=== PATIENT | female | born 1950 | race Caucasian/White ===

== ENCOUNTER → 2018-01-12 | Outpatient (CLI) | payer MEDICARE ==
--- NOTE | 2018-01-12 18:52 | ECHOF ---
Referral Reason:R01.1 Cardiac Murmur MEASUREMENTS -------- HEIGHT: 172.7 cm WEIGHT: 99.8 kg BP: RVIDd: 2.4 cm (< 3.3) IVSd: 1.2 cm (0.6 - 1.1) LVIDd: 4.7 cm (3.9 - 5.3) LVPWd: 1.4 cm (0.6 - 1.1) IVSs: 1.2 cm LVIDs: 4.0 cm LVPWs: 1.4 cm LA Diam: 3.0 cm (2.7 - 3.8) LAESV Index (A-L): 31.13 ml/m Ao Diam: 3.3 cm (2.0 - 3.7) AV Cusp: 1.8 cm (1.5 - 2.6) LA Diam: 3.9 cm (2.7 - 3.8) MV EXCURSION: 12.842 mm (> 18.000) MV EF SLOPE: 66 mm/s (70 - 150) EPSS: 0.5 cm MV E Augustine: 0.91 m/s MV DecT: 379 ms MV A Augustine: 1.04 m/s MV E/A Ratio: 0.88 RAP: 5.00 mmHg RVSP: 23.88 mmHg FINDINGS -------- Sinus rhythm. This was a technically good study. The left ventricular size is normal. There is mild concentric left ventricular hypertrophy. Overa ll left ventricular systolic function is normal with, an EF between 55 - 60 %. The right ventricle is normal in size. The left atrial size is normal. LA is midly dilated 29-33ml/m2. The right atrial size is normal. There is mild aortic valve sclerosis. There is no evidence of aortic regurgitation. The mitral valve leaflets are mildly thickened. Mild mitral regurgitation is present. Mild tricuspid regurgitation present. There is no evidence of pulmonary hypertension. The right v entricular systolic pressure, as measured by Doppler, is 23.88mmHg. There is no pulmonic regurgitation present. The aortic root size is normal. There is no pericardial effusion. CONCLUSIONS -------- 1. The left ventricular size is normal. 2. There is mild concentric left ventricular hypertrophy. 3. Overall left ventricular systolic function is normal with, an EF between 55 - 60 %. 4. The right ventricle is normal in size. 5. LA is midly dilated 29-33ml/m2. 6. There is mild aortic valve sclerosis. 7. The mitral valve leaflets are mildly thickened. 8. Mild mitral regurgitation is present. 9. Mild tricuspid regurgitation present. 10. There is no evidence of pulmonary hypertension. 11. The right ventricular systolic pressure, as measured by Doppler, is 23.88mmHg. 12. There is no pulmonic regurgitation present. 13. The aortic root size is normal. 14. There is no pericardial effusion. COUNTERSINKER [employer]ANCE SCREW HOLE: Haley Mcclelland RDCS
== END | disposition home or self-care (01) ==
LOC: RADECHMAIN 14:48
PROVIDERS: ATTEND Family Medicine
DX: I08.1 Rheumatic disorders of both mitral and tricuspid valves (principal)
CPT/HCPCS: 93306

== ENCOUNTER → 2018-07-09 | Outpatient (CLI) | payer MEDICARE ==
--- NOTE | 2018-07-09 18:43 | ECHOF ---
Referral Reason:N64.59 Other signs and symptoms in breast, R01.1 murmur MEASUREMENTS -------- HEIGHT: 172.7 cm WEIGHT: 88.0 kg BP: RVIDd: 2.5 cm (< 3.3) IVSd: 1.0 cm (0.6 - 1.1) LVIDd: 4.8 cm (3.9 - 5.3) LVPWd: 1.1 cm (0.6 - 1.1) IVSs: 1.6 cm LVIDs: 2.5 cm LVPWs: 1.7 cm LAESV Index (A-L): 19.97 ml/m Ao Diam: 3.0 cm (2.0 - 3.7) AV Cusp: 1.6 cm (1.5 - 2.6) LA Diam: 3.1 cm (2.7 - 3.8) MV EXCURSION: 17.354 mm (> 18.000) MV EF SLOPE: 59 mm/s (70 - 150) EPSS: 0.2 cm MV E Augustine: 1.28 m/s MV DecT: 259 ms MV A Augustine: 1.18 m/s MV E/A Ratio: 1.09 RAP: 5.00 mmHg RVSP: 19.26 mmHg FINDINGS -------- Sinus rhythm. This was a technically good study. The left ventricular size is normal. Left ventricular wall thickness is normal. Overall left vent ricular systolic function is normal with, an EF between 55 - 60 %. The right ventricle is normal in size and function. The left atrial size is normal. The right atrium is normal in size. The aortic valve is trileaflet, and appears structurally normal. No aortic stenosis or regurgitation. The mitral valve leaflets are mildly thickened. Moderate mitral annular calcification present. Mi ld mitral regurgitation is present. Mild tricuspid regurgitation present. Right ventricular systolic pressure is normal at < 35 mmHg. The right ventricular systolic pressure, as measured by Doppler, is 19.26mmHg. There is no pulmonic regurgitation present. The aortic root size is normal. The inferior vena cava is mildly dilated. There is a small, generalized pericardial effusion present. CONCLUSIONS -------- 1. Sinus rhythm. 2. This was a technically good study. 3. The left ventricular size is normal. 4. Left ventricular wall thickness is normal. 5. Overall left ventricular systolic function is normal with, an EF between 55 - 60 %. 6. The left atrial size is normal. 7. The aortic valve is trileaflet, and appears structurally normal. No aortic stenosis or regurgitati on. 8. The mitral valve leaflets are mildly thickened. 9. Moderate mitral annular calcification present. 10. Mild mitral regurgitation is present. 11. Mild tricuspid regurgitation present. 12. Right ventricular systolic pressure is normal at < 35 mmHg. 13. There is no pulmonic regurgitation present. 14. The aortic root size is normal. 15. The inferior vena cava is mildly dilated. 16. There is a small, generalized pericardial effusion present. SHARED SERVICES REPRESENTATIVE: Guera Kee RDCS
== END | disposition home or self-care (01) ==
LOC: RADECHMAIN 11:20
PROVIDERS: ATTEND Family Medicine
DX: I08.1 Rheumatic disorders of both mitral and tricuspid valves (principal); I31.3 Pericardial effusion (noninflammatory)
CPT/HCPCS: 93306; 77066; G0279; 77062

== ENCOUNTER → 2018-12-04 | Outpatient (CLI) | payer MEDICARE ==
--- NOTE | 2018-12-04 15:59 | XR ---
EXAMINATION TYPE: XR knee complete LT DATE OF EXAM: 12/04/2018 COMPARISON: NONE HISTORY: 68-year-old female following July with pain TECHNIQUE: 3 views FINDINGS: Right knee total arthroplasty is demonstrated. There is an ossific density inferior to the patella me asuring 1.3 cm. Possible beginning of the patellar tendon. Some additional bony densities above the p atella. No sizable joint effusion seen. Distal femoral and proximal tibial components of the prosthes is appear well seated. IMPRESSION: Both femoral and tibial components of the prosthesis appear intact. There is a 1.3 cm ossific density below the patella that could represent small avulsion fracture fragment. Correlate with any availabl e outside priors to assess for stability. There is thickening of the patellar tendon which could repr esent tendinopathy, contusion, or partial tear. Rupture is considered unlikely as there is no saida p atella philip.
== END ==
LOC: RADXRMAIN 15:13
PROVIDERS: ATTEND Family Medicine
DX: M25.862 Other specified joint disorders, left knee (principal)

== ENCOUNTER → 2019-08-09 | Outpatient (CLI) | payer MEDICARE ==
--- NOTE | 2019-08-12 13:18 | MM ---
Reason for exam: screening (asymptomatic). Last mammogram was performed 1 year and 1 month ago. History: Patient is postmenopausal. Benign cyst aspiration of the right breast. Benign excisional biopsy of the left breast. Physical Findings: A clinical breast exam by your physician is recommended on an annual basis and results should be correlated with mammographic findings. MG 3D Screening Mammo W/Cad Bilateral CC and MLO view(s) were taken. Prior study comparison: July 09, 2018, bilateral MG 3d diag mammo w/cad [facility]. October 20, 2016, mammogram, performed at [place]. The breast tissue is heterogeneously dense. This may lower the sensitivity of mammography. Benign appearing bilateral calcifications. No suspicious abnormality. No significant changes when compared with prior studies. ASSESSMENT: Benign, BI-RAD 2 RECOMMENDATION: Routine screening mammogram of both breasts in 1 year.
== END | disposition home or self-care (01) ==
LOC: RADMAMWWP 13:24
PROVIDERS: ATTEND Family Medicine
DX: Z12.31 Encounter for screening mammogram for malignant neoplasm of breast (principal)
CPT/HCPCS: 77063; 77067

== ENCOUNTER → 2020-02-12 | Day surgery (SDC) | payer MEDICARE ==
[2020-02-10 12:23] VITALS: BMI 30.7
[~2020-02-12] MED LIST: LIDOCAINE 1% (10MG/ML) FOR IV START INTRADERMA PRN; LIDOCAINE 1% INJ 10MG/ML (20 ML MDV) ONE; PROPOFOL 10 MG/ML 20 ML VIAL IV ONE
[2020-02-12] MEDS: LACTATED RINGERS 1,000 ML IV SCH ×2 (08:12→08:43)
[2020-02-12 08:13] VITALS: TEMP 97.1
[2020-02-12 08:14] LABS: Glucose,Whole Blood 177 mg/dL (75-99)
--- NOTE | 2020-02-12 09:04 | P.GSHP ---
History of Present Illness H&P Date: 02/12/20 CHIEF COMPLAINT: Colon screen HISTORY OF PRESENT ILLNESS: The patient is a 69-year-old female who presents for colon screen. Lower endoscopy was offered for further evaluation and management. PAST MEDICAL HISTORY: Please see list. PAST SURGICAL HISTORY: Please see list. MEDICATIONS: Please see list. ALLERGIES: Please see list. SOCIAL HISTORY: No illicit drug use FAMILY HISTORY: No reports of Crohn disease or ulcerative colitis. REVIEW OF ORGAN SYSTEMS: CONSTITUTIONAL: No reports of fevers or chills. PHYSICAL EXAM: VITAL SIGNS: Stable GENERAL: Well-developed pleasant in no acute distress. HEENT: No scleral icterus. Extraocular movements grossly intact. Moist buccal mucosa. NECK: Supple without lymphadenopathy. CHEST: Unlabored respirations. Equal bilateral excursions. CARDIOVASCULAR: Regular rate and rhythm. Distal 2+ pulses. ABDOMEN: Soft, nontender, nondistended. MUSCULOSKELETAL: No clubbing, cyanosis, or edema. ASSESSMENT: 1. Colon screen. PLAN: 1. Recommend proceeding with a lower endoscopy Past Medical History Past Medical History: Diabetes Mellitus, Hyperlipidemia, Hypertension, Liver Disease Additional Past Medical History / Comment(s): blood in stools, hx of hemorrhoids, states fatty liver, psoriatic arthritis, non-alchoholic cirrhosis, History of Any Multi-Drug Resistant Organisms: None Reported Past Surgical History: Appendectomy, Back Surgery, Cholecystectomy, Hysterectomy, Joint Replacement Additional Past Surgical History / Comment(s): total left knee, sx for herniated disc Past Anesthesia/Blood Transfusion Reactions: Previous Problems w/ Anesthesia Additional Past Anesthesia/Blood Transfusion Reaction / Comment(s): states "takes a long time waking up" Past Psychological History: No Psychological Hx Reported Past Alcohol Use History: None Reported Additional Past Alcohol Use History / Comment(s): quit smoking 1998, smoked 2ppd for 36yrs Past Drug Use History: None Reported - Past Family History Mother Family Medical History: No Reported History Medications and Allergies Home Medications Medication Instructions Recorded Confirmed Type Empagliflozin [Jardiance] 25 mg PO DAILY 02/10/20 02/12/20 History Estrogens, Conjugated Cream 1 gm VAGINAL DIRECTED PRN 02/10/20 02/12/20 History [Premarin Cream] Losartan Potassium 100 mg PO 1200 02/10/20 02/12/20 History Pioglitazone [Actos] 30 mg PO DAILY 02/10/20 02/12/20 History Pravastatin Sodium [Pravachol] 40 mg PO DAILY 02/10/20 02/12/20 History Secukinumab [Cosentyx Pen] 300 mg SQ Q30D 02/10/20 02/12/20 History Ursodiol 500 mg PO BID 02/10/20 02/12/20 History glipiZIDE [Glucotrol] 10 mg PO AC-BID 02/10/20 02/12/20 History sitaGLIPtin [Januvia] 100 mg PO DAILY 02/10/20 02/12/20 History Allergies Allergy/AdvReac Type Severity Reaction Status Date / Time bacitracin Allergy "makes Verified 02/10/20 12:20 [From Neosporin infection ([id number])] worse" coconut Allergy "causes Verified 02/12/20 07:59 pam and throat to go numb" infliximab [From Remicade] Allergy "welts" Verified 02/12/20 07:59 Iodinated Contrast Media Allergy "get Verified 02/12/20 07:59 feeling I'm drowning" neomycin Allergy "makes Verified 02/12/20 07:59 [From Neosporin infection ([id number])] worse" polymyxin B Allergy "makes Verified 02/12/20 07:59 [From Neosporin infection ([id number])] worse" codeine AdvReac Nausea Verified 02/12/20 07:59 hydrocodone AdvReac Nausea Verified 02/12/20 07:59 tramadol [From Ultram] AdvReac Nausea Verified 02/12/20 07:59 metal Allergy "I get Uncoded 02/12/20 07:59 hives to any metal above my neck" blood thinners AdvReac "get Uncoded 02/12/20 07:59 nosebleeds" Surgical - Exam Vital Signs Temp Pulse Resp BP Pulse Ox 97.1 F L 80 18 162/71 98 02/12/20 08:02 02/12/20 08:02 02/12/20 08:02 02/12/20 08:02 02/12/20 08:02 Results - Labs Abnormal Lab Results - Last 24 Hours (Table) 02/12/20 Range/Units 08:12 POC Glucose (mg/dL) 177 H (75-99) mg/dL
--- NOTE | 2020-02-12 09:29 | P.PCN ---
Date of Procedure: 02/12/20 Description of Procedure: PREOPERATIVE DIAGNOSIS: Colonoscopy screening. History of colon polyps POSTOPERATIVE DIAGNOSIS: Colonoscopy screening. History of colon polyps Diverticulosis, scattered. OPERATION: Colonoscopy to the cecum, ileocecal valve and appendiceal orifice. SURGEON: Tomeka Johnson MD. ANESTHESIA: MAC. INDICATIONS: The patient is a 69-year-old female who presents for colonoscopy screening. Last colonoscopy 3 years ago, 2017. Benefits and risks were described and informed consent was obtained. DESCRIPTION OF PROCEDURE: The patient had undergone Suprep. She had been brought into the operating room and laid in the left lateral decubitus position. After adequate intravenous s edation, the rectum was examined with 2% lidocaine jelly. External hemorrhoids were encountered. The rectal tone was within normal limits. No lesions were palpated in the rectal vault. An Olympus colonoscope was advanced until the cecum, ileocecal valve and appendiceal orifice were clearly viewed. Abdominal pressure was used for highly redundant sigmoid colon. The prep was good. Sigmoid diverticulosis was found. No colonic polyps were found. No evidence of focal colitis was found. Retroflexion of the scope demonstrated grade 1 internal hemorrhoids without active bleeding or inflammation. The colon was desufflated. The patient had tolerated the procedure well. Withdrawal time was over 6 minutes. FINDINGS: Aronchick preparation quality scale 2 (1-5) Internal hemorrhoids, grade 1 External prolapsed hemorrhoids, grade 1 No arteriovenous malformations. No adenomatous polyps. No focal colitis. Sigmoid diverticulosis. Highly redundant sigmoid colon requiring abdominal wall pressure. RECOMMENDATIONS: Lower endoscopy in 5 years, 2024 or Cologuard Plan - Discharge Summary Discharge Rx Participant: No New Discharge Prescriptions: Continue Pravastatin Sodium [Pravachol] 40 mg PO DAILY Estrogens, Conjugated Cream [Premarin Cream] 1 gm VAGINAL DIRECTED PRN PRN Reason: Vaginal Dryness sitaGLIPtin [Januvia] 100 mg PO DAILY glipiZIDE [Glucotrol] 10 mg PO AC-BID Pioglitazone [Actos] 30 mg PO DAILY Ursodiol 500 mg PO BID Secukinumab [Cosentyx Pen] 300 mg SQ Q30D Losartan Potassium 100 mg PO 1200 Empagliflozin [Jardiance] 25 mg PO DAILY Discharge Medication List Empagliflozin [Jardiance] 25 mg PO DAILY 02/10/20 [History] Estrogens, Conjugated Cream [Premarin Cream] 1 gm VAGINAL DIRECTED PRN 02/10/20 [History] Losartan Potassium 100 mg PO 1200 02/10/20 [History] Pioglitazone [Actos] 30 mg PO DAILY 02/10/20 [History] Pravastatin Sodium [Pravachol] 40 mg PO DAILY 02/10/20 [History] Secukinumab [Cosentyx Pen] 300 mg SQ Q30D 02/10/20 [History] Ursodiol 500 mg PO BID 02/10/20 [History] glipiZIDE [Glucotrol] 10 mg PO AC-BID 02/10/20 [History] sitaGLIPtin [Januvia] 100 mg PO DAILY 02/10/20 [History] Follow up Appointment(s)/Referral(s): Tomeka Johnson MD [STAFF PHYSICIAN] - As Needed Patient Instructions/Handouts: Diverticulosis Diet (GEN), Diverticulosis (DC) Activity/Diet/Wound Care/Special Instructions: Recommend repeat colonoscopy in 5 years, 2024 or Cologuard Discharge Disposition: HOME SELF-CARE
[2020-02-12 09:34] VITALS: RESP 20
[2020-02-12 10:02] VITALS: BP 163/70; PULSE 70
== END | disposition home or self-care (01) ==
LOC: ORWHC2ENDO 07:41
PROVIDERS: ATTEND Surgery Plastic and Reconstructive Surgery
DX: Z12.11 Encounter for screening for malignant neoplasm of colon (principal); K57.30 Diverticulosis of large intestine without perforation or abscess without bleeding; K64.8 Other hemorrhoids; K64.4 Residual hemorrhoidal skin tags; E11.9 Type 2 diabetes mellitus without complications; E78.5 Hyperlipidemia, unspecified; I10 Essential (primary) hypertension; K76.9 Liver disease, unspecified; K76.0 Fatty (change of) liver, not elsewhere classified; K74.60 Unspecified cirrhosis of liver; L40.50 Arthropathic psoriasis, unspecified; K92.1 Melena; Z79.84 Long term (current) use of oral hypoglycemic drugs; Z91.041 Radiographic dye allergy status; Z88.5 Allergy status to narcotic agent; Z88.8 Allergy status to other drugs, medicaments and biological substances; Z91.018 Allergy to other foods; Z87.891 Personal history of nicotine dependence; Z90.49 Acquired absence of other specified parts of digestive tract; Z98.890 Other specified postprocedural states; Z90.710 Acquired absence of both cervix and uterus; Z96.652 Presence of left artificial knee joint
CPT/HCPCS: G0121; J2001; J2704; 45378

== ENCOUNTER → 2020-08-24 | Outpatient (CLI) | payer MEDICARE ==
--- NOTE | 2020-08-24 14:06 | XR ---
EXAMINATION TYPE: XR chest special 4+ views DATE OF EXAM: 08/24/2020 COMPARISON: NONE HISTORY: Shortness of breath TECHNIQUE: Frontal and lateral views of the chest are obtained. Obtained are decubitus views of the chest. FINDINGS: Scattered senescent parenchymal changes noted. Hyperinflation compatible with COPD. There is left perihilar patchy density as well as increased density right medial lung base which may reflect underlying developing pneumonia. Correlate clinically. There is no evidence for free-flowing pleural effusion. Heart size is stable. Mediastinal structures are stable and grossly unremarkable. No evidence for hilar prominence. Degenerative changes dorsal spine. IMPRESSION: 1. There is left perihilar patchy density as well as increased density right medial lung base which m ay reflect underlying developing pneumonia. Correlate clinically.
== END | disposition home or self-care (01) ==
LOC: RADXRMAIN 12:30
PROVIDERS: ATTEND Internal Medicine Hematology & Oncology
DX: R91.8 Other nonspecific abnormal finding of lung field (principal); K75.81 Nonalcoholic steatohepatitis (NASH); E11.9 Type 2 diabetes mellitus without complications; I10 Essential (primary) hypertension; L44.8 Other specified papulosquamous disorders; Z88.5 Allergy status to narcotic agent; Z88.8 Allergy status to other drugs, medicaments and biological substances
CPT/HCPCS: 71048

== ENCOUNTER → 2020-08-31 | Outpatient (CLI) | payer MEDICARE | END | disposition home or self-care (01) | LOC: LABWHC1 15:35 | PROVIDERS: ATTEND Family Medicine | DX: Z20.828 Contact with and (suspected) exposure to other viral communicable diseases (principal) | CPT/HCPCS: U0003; C9803 ==

== ENCOUNTER → 2020-09-09 | Outpatient (CLI) | payer MEDICARE ==
--- NOTE | 2020-09-09 10:48 | CT ---
EXAMINATION TYPE: CT chest w con DATE OF EXAM: 09/09/2020 COMPARISON: X-ray 08/24/2020 HISTORY: Cough, Abnormal clinic lung findings CT DLP: 658 mGycm Automated exposure control for dose reduction was used. TECHNIQUE: CT scan of the chest is performed with IV Contrast, patient injected with 100 ml mL of Isovue 300. M IP Images are created on CT scanner and reviewed. 3D reconstructed images are created on an [employer] workstation and reviewed. FINDINGS: LUNGS: There is apical pleural-based thickening. There is a nodule posterior margin of the left upper lobe with adjacent tree-in-bud pattern. Nodule measures 1.1 x 0.8 cm. Within the peripheral margin o f the left lingular segment there are least 2 punctate 2 mm nodules. A 4 mm nodule in the anterior se gment of the right upper lobe. Subpleural 2 mm nodule posterior segment right lower lobe. Calcified n odule right lower lobe compatible with granuloma. MEDIASTINUM: Heart is enlarged and there is atherosclerotic changes aorta. Coronary artery calcificat ion seen. Small hiatal hernia. No pathologic adenopathy. Calcifications in the soft tissues of the br easts visualized adrenal glands normal morphology. OTHER: Heterogeneous enhancement of the thyroid with suspected bilateral thyroid nodules. Liver is s omewhat low in attenuation correlate for hepatic steatosis. Slightly lobulated margins to the liver w ith hepatomegaly correlate with liver function studies. Hypertrophic and degenerative changes spine w ith vacuum disc at the upper thoracic spine.. IMPRESSION: 1. There are scattered subcentimeter 5 mm nodule too small to characterize. However, at least one is calcified suggestive of granuloma. There is a larger nodule seen in the posterior segment of the left upper lobe measuring 1.1 cm in greatest axis. Finding could be postinflammatory neoplastic process not excluded. If the patient has had recent pneumonia vacuum follow-up study CT scan and 1-2 months r ecommended to determine if resolution. Otherwise consider PET scan. 2. Cardiomegaly 3. Correlate for hepatocellular disease
== END | disposition home or self-care (01) ==
LOC: RADCTMAIN 08:20
PROVIDERS: ATTEND Internal Medicine Hematology & Oncology
DX: R91.1 Solitary pulmonary nodule (principal); I51.7 Cardiomegaly; Z88.5 Allergy status to narcotic agent
CPT/HCPCS: 82565; 84520; 71260; 36415; Q9967

== ENCOUNTER → 2020-09-11 | Outpatient (CLI) | payer MEDICARE ==
--- NOTE | 2020-09-11 08:57 | US ---
EXAMINATION TYPE: US kidneys/renal and bladder DATE OF EXAM: 09/11/2020 COMPARISON: NONE CLINICAL HISTORY: R35.0 FREQUENCY OF MICTURITION. EXAM MEASUREMENTS: Right Kidney: 11.7 x 5.9 x 5.2 cm Left Kidney: 12.7 x 4.7 x 4.5 cm Right Kidney: No hydronephrosis or masses seen Left Kidney: No hydronephrosis or masses seen Bladder: not fully distended, appears wnl as seen Bilateral Jets seen: no Spleen: enlarged at 15.4cm There is no evidence for hydronephrosis at this point in time. No nephrolithiasis is seen. No mariana s are identified. The urinary bladder is anechoic. Bilateral ureteral jets are seen. IMPRESSION: Splenomegaly.
== END | disposition home or self-care (01) ==
LOC: RADUSWWP 08:17
PROVIDERS: ATTEND Family Medicine
DX: R16.1 Splenomegaly, not elsewhere classified (principal); R35.0 Frequency of micturition
CPT/HCPCS: 76770

== ENCOUNTER → 2020-10-26 | Outpatient (CLI) | payer MEDICARE ==
--- NOTE | 2020-10-27 16:04 | MR ---
MR liver with and without contrast HISTORY: Unspecified cirrhosis, K 74.60 Multiplanar multisequence and dynamic postcontrast images obtained through the liver, patient receive d 9 cc Gadavist IV. Correlation to CT scan 09/09/2020 The liver shows a nodular contour correlating with the CT scan consistent with underlying cirrhosis. No dilated intra or extrahepatic biliary ducts. The liver is not enlarged. There is no evident liver mass. There is a V shaped area of enhancement following contrast administration, series 901, image 24 6 anteriorly felt to be within the medial segment of the left lobe of the liver with rapid washout, o verall measuring 11 to 12 mm. Some peripheral areas in the left lobe, axial image 55, 53, 68, 29, 73 are subcentimeter in size and show some right-sided washout. Portal vein and hepatic veins are patent . There is no ascites. The spleen is enlarged. Pancreas shows no mass. There is no retroperitoneal chandni opathy. Aorta shows marked stenosis distally, possible aortic occlusion or high-grade stenosis at the level of the aortic bifurcation. The adrenal glands are within normal limits. Kidneys show no mass or hydronephrosis. Lung bases show no effusion. IMPRESSION: Findings in the liver may represent dysplastic nodules rather than hepatocellular carcino ma for follow-up recommended. There is evidence of cirrhosis with splenomegaly, possible aortic occlu luke peripherally, correlate for peripheral vascular occlusive disease
== END | disposition home or self-care (01) ==
LOC: RADMRIMAIN 16:37
PROVIDERS: ATTEND Physician Assistant
DX: K74.60 Unspecified cirrhosis of liver (principal); R16.1 Splenomegaly, not elsewhere classified
CPT/HCPCS: 74183; A9585

== ENCOUNTER 2020-11-06 17:10 | Inpatient (IN) | payer MEDICARE ==
[2020-11-06 18:07] LABS: Basophils % (A) 0 %; Eosinophils # (A) 0.1 k/uL (0-0.7); Eosinophils % (A) 1 %; HCT 30.1 % (34.0-46.0); Lymphocytes # (A) 0.8 k/uL (1.0-4.8); Lymphocytes % (A) 10 %; MCH 28.4 pg (25.0-35.0); MCHC 33.1 g/dL (31.0-37.0); MCV 85.8 fL (80.0-100.0); Mean Platelet Volume 12.8; Monocytes # (A) 0.4 k/uL (0-1.0); Monocytes % (A) 5 %; Neutrophils # (A) 6.4 k/uL (1.3-7.7); Neutrophils % (A) 82 %; RBC 3.51 m/uL (3.80-5.40); RDW 15.2 % (11.5-15.5); WBC 7.8 k/uL (3.8-10.6)
[2020-11-06 18:19] LABS: Large Platelets Present
[2020-11-06 18:20] LABS: Platelet Count 96 k/uL (150-450)
[2020-11-06 18:21] LABS: Albumin 3.7 g/dL (3.5-5.0); Calcium 11.6 mg/dL (8.4-10.2); Magnesium 1.7 mg/dL (1.6-2.3); Potassium 5.1 mmol/L (3.5-5.1); Total Bilirubin 0.8 mg/dL (0.2-1.3); Total Protein 7.9 g/dL (6.3-8.2)
[2020-11-06 18:25] LABS: INR 1.1 (<1.2); Partial Thromboplastin Time 23.8 sec (22.0-30.0); Prothrombin Time 11.2 sec (9.0-12.0)
[2020-11-06] MEDS ORDERED: TEMAZEPAM 15 MG CAP PO PRN (18:29)
[2020-11-06] MEDS ORDERED: NALOXONE 0.4 MG/ML 1 ML VIAL IV PRN (18:29)
[2020-11-06] MEDS ORDERED: ONDANSETRON 4 MG/2 ML VIAL IVP PRN (18:29)
--- NOTE | 2020-11-06 18:29 | ED ---
Arrhythmia/Palpitations HPI - General Chief Complaint: Arrhythmia/Palpitations Stated Complaint: Dehydration, EUNICE, Heart palpations Time Seen by Provider: 11/06/20 17:33 Source: patient Mode of arrival: ambulatory Limitations: no limitations - History of Present Illness Initial Comments: Patient complains of palpitations and shortness of breath. She noticed the symptoms several days ago, but today she is so short of breath she can barely make herself anything to eat. She has no pain or pressure or tightness in the chest. She has no nausea or vomiting or diaphoresis. She has no focal weakness. She has no headache. She has no neck pain or stiffness. She denies any recent illnesses or sick contacts. - Related Data Home Medications Medication Instructions Recorded Confirmed Empagliflozin [Jardiance] 25 mg PO DAILY 02/10/20 02/12/20 Estrogens, Conjugated Cream 1 gm VAGINAL DIRECTED PRN 02/10/20 02/12/20 [Premarin Cream] Losartan Potassium 100 mg PO 1200 02/10/20 02/12/20 Pioglitazone [Actos] 30 mg PO DAILY 02/10/20 02/12/20 Pravastatin Sodium [Pravachol] 40 mg PO DAILY 02/10/20 02/12/20 Secukinumab [Cosentyx Pen] 300 mg SQ Q30D 02/10/20 02/12/20 glipiZIDE [Glucotrol] 10 mg PO AC-BID 02/10/20 02/12/20 sitaGLIPtin [Januvia] 100 mg PO DAILY 02/10/20 02/12/20 ursodioL [Ursodiol] 500 mg PO BID 02/10/20 02/12/20 Allergies Allergy/AdvReac Type Severity Reaction Status Date / Time bacitracin Allergy "makes Verified 11/06/20 17:18 [From Neosporin infection ([id number])] worse" coconut Allergy "causes Verified 11/06/20 17:18 pam and throat to go numb" infliximab [From Remicade] Allergy "welts" Verified 11/06/20 17:18 Iodinated Contrast Media Allergy "get Verified 11/06/20 17:18 feeling I'm drowning" neomycin Allergy "makes Verified 11/06/20 17:18 [From Neosporin infection ([id number])] worse" polymyxin B Allergy "makes Verified 11/06/20 17:18 [From Neosporin infection ([id number])] worse" codeine AdvReac Nausea Verified 11/06/20 17:18 hydrocodone AdvReac Nausea Verified 11/06/20 17:18 tramadol [From Ultram] AdvReac Nausea Verified 11/06/20 17:18 metal Allergy "I get Uncoded 11/06/20 17:18 hives to any metal above my neck" blood thinners AdvReac "get Uncoded 11/06/20 17:18 nosebleeds" Review of Systems ROS Statement: Those systems with pertinent positive or pertinent negative responses have been documented in the HPI. ROS Other: All systems not noted in ROS Statement are negative. Past Medical History Past Medical History: Diabetes Mellitus, Hyperlipidemia, Hypertension, Liver D isease Additional Past Medical History / Comment(s): blood in stools, hx of hemorrhoids, states fatty liver, psoriatic arthritis, non-alchoholic cirrhosis, History of Any Multi-Drug Resistant Organisms: None Reported Past Surgical History: Appendectomy, Back Surgery, Cholecystectomy, Hysterectomy, Joint Replacement Additional Past Surgical History / Comment(s): total left knee, sx for herniated disc Past Anesthesia/Blood Transfusion Reactions: Previous Problems w/ Anesthesia Additional Past Anesthesia/Blood Transfusion Reaction / Comment(s): states "takes a long time waking up" Past Psychological History: No Psychological Hx Reported Smoking Status: Former smoker Past Alcohol Use History: None Reported Past Drug Use History: None Reported - Past Family History Mother Family Medical History: No Reported History General Exam Limitations: no limitations General appearance: alert, in no apparent distress Head exam: Present: atraumatic, normocephalic, normal inspection Eye exam: Present: normal appearance, PERRL, EOMI. Absent: scleral icterus, conjunctival injection, periorbital swelling ENT exam: Present: normal exam, mucous membranes moist Neck exam: Present: normal inspection. Absent: tenderness, meningismus, lymphadenopathy Respiratory exam: Present: normal lung sounds bilaterally. Absent: respiratory distress, wheezes, rales, rhonchi, stridor Cardiovascular Exam: Present: irregular rhythm, normal heart sounds. Absent: systolic murmur, diastolic murmur, rubs, gallop, clicks GI/Abdominal exam: Present: soft, normal bowel sounds. Absent: distended, tenderness, guarding, rebound, rigid Extremities exam: Present: normal inspection, full ROM, normal capillary refill. Absent: tenderness, pedal edema, joint swelling, calf tenderness Back exam: Present: normal inspection Neurological exam: Present: alert, oriented X3, CN II-XII intact Psychiatric exam: Present: normal affect, normal mood Skin exam: Present: warm, dry, intact, normal color. Absent: rash Course Vital Signs 11/06/20 17:14 Temperature 99.0 F Pulse Rate 52 L Respiratory 26 H Rate Blood Pressure 179/46 O2 Sat by Pulse 92 L Oximetry EKG Findings - EKG Comments: EKG Findings:: Twelve-lead EKG shows ventricular rate 51 bpm, there is a second- degree type II heart block with 2-1 conduction, there is no ST elevation or depression, interpreted by me as sinus bradycardia with type II second-degree heart block. Medical Decision Making - Medical Decision Making Patient presents with palpitations and shortness of breath. She is in a sig nificant dysrhythmia. I have consult to cardiology. Patient will be admitted to the hospital. - Lab Data Result diagrams: 11/06/20 18:00 11/06/20 18:00 Lab Results 11/06/20 11/06/20 11/06/20 Range/Units 18:00 18:00 18:00 WBC 7.8 (3.8-10.6) k/uL RBC 3.51 L (3.80-5.40) m/uL Hgb 10.0 L (11.4-16.0) gm/dL Hct 30.1 L (34.0-46.0) % MCV 85.8 (80.0-100.0) fL MCH 28.4 (25.0-35.0) pg MCHC 33.1 (31.0-37.0) g/dL RDW 15.2 (11.5-15.5) % Plt Count 96 L (150-450) k/uL MPV 12.8 Neutrophils % 82 % Lymphocytes % 10 % Monocytes % 5 % Eosinophils % 1 % Basophils % 0 % Neutrophils # 6.4 (1.3-7.7) k/uL Lymphocytes # 0.8 L (1.0-4.8) k/uL Monocytes # 0.4 (0-1.0) k/uL Eosinophils # 0.1 (0-0.7) k/uL Basophils # 0.0 (0-0.2) k/uL Manual Slide Review Performed Large Platelets Present RBC Morphology Normal PT 11.2 (9.0-12.0) sec INR 1.1 (<1.2) APTT 23.8 (22.0-30.0) sec Sodium 131 L (137-145) mmol/L Potassium 5.1 (3.5-5.1) mmol/L Chloride 102 (98-107) mmol/L Carbon Dioxide 20 L (22-30) mmol/L Anion Gap 9 mmol/L BUN 54 H (7-17) mg/dL Creatinine 0.90 (0.52-1.04) mg/dL Est GFR (CKD-EPI)AfAm 76 (>60 ml/min/1.73 sqM) Est GFR (CKD-EPI)NonAf 66 (>60 ml/min/1.73 sqM) Glucose 166 H (74-99) mg/dL Calcium 11.6 H (8.4-10.2) mg/dL Magnesium 1.7 (1.6-2.3) mg/dL Total Bilirubin 0.8 (0.2-1.3) mg/dL AST 26 (14-36) U/L ALT 14 (4-34) U/L Alkaline Phosphatase 92 (38-126) U/L Total Protein 7.9 (6.3-8.2) g/dL Albumin 3.7 (3.5-5.0) g/dL Disposition Clinical Impression: Heart block Disposition: ADMITTED IP TO THIS HOSP Is patient prescribed a controlled substance at d/c from ED?: No Referrals: Michael Martinez DO [Primary Care Provider] - 1-2 days
[2020-11-06] MEDS ORDERED: ESTROGENS, CONJUGATED 0.625 MG/GM VAGINAL CREAM 42.5 GM TUBE VAGINAL PRN (18:31)
--- NOTE | 2020-11-06 18:41 | XR ---
EXAMINATION TYPE: XR chest 2V DATE OF EXAM: 11/06/2020 COMPARISON: None INDICATION: Dysrhythmia, short of breath TECHNIQUE: Frontal and lateral views of the chest are obtained. FINDINGS: The heart size is normal. The pulmonary vasculature is normal. Patchy diffuse infiltrates within the perihilar and lower lung hernandez greater on the left. Correlate for pneumonia. Consider atypical pneumonia.. IMPRESSION: 1. Bibasilar infiltrates greater on the left. Correlate for pneumonia and atypical pneumonia.
[2020-11-06] MEDS ORDERED: SECUKINUMAB 150 MG/ML SQ SCH ×2 (18:45→21:19)
[2020-11-06] MEDS: HYDROcodone/APAP 5-325MG 1 EACH TAB PO PRN (21:10)
[2020-11-06] MEDS: SODIUM CHLORIDE 0.9% 1,000 ML IV SCH (21:11)
[2020-11-06] MEDS: URSODIOL 500 MG PO SCH (23:36)
[2020-11-07] MEDS: HYDROcodone/APAP 5-325MG 1 EACH TAB PO PRN ×4 (02:27→23:32)
--- NOTE | 2020-11-07 08:55 | P.CRDCN ---
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 For the last 3 weeks she has been experiencing shortness of breath with exertion appears to be new to her. No symptoms of chest pain or chest discomfort. The shortness of breath with exertion is associated with "my heart is not beating right". She noticed that her heart has been on the slow side lately. She denies any dizziness or lightheadedness or any presyncope or syncope. She has not been experiencing any symptoms of being tired and fatigue and her main complaint is shortness of breath with exertion without any chest pain or chest discomfort. No nausea or vomiting or diaphoresis. When she presented to the emergency department an EKG was performed and showed sinus rhythm with AV block second degree type II. She has narrow QRS. Her heart rate has been in the 50s. The patient is not on any AV jose luis casimiro agents. She doesn't recall having any thyroid disorders before. She does have diabetes and hypertension. No coronary artery disease or any congestive heart failure. She underwent a chest x-ray and that showed possible atypical pneumonia. Past Medical History Past Medical History: Diabetes Mellitus, Hyperlipidemia, Hypertension, Liver Disease Additional Past Medical History / Comment(s): blood in stools, hx of hemorrhoids, states fatty liver, psoriatic arthritis, non-alchoholic cirrhosis, History of Any Multi-Drug Resistant Organisms: None Reported Past Surgical History: Appendectomy, Back Surgery, Cholecystectomy, Hysterectomy, Joint Replacement Additional Past Surgical History / Comment(s): total left knee, sx for herniated disc Past Anesthesia/Blood Transfusion Reactions: Previous Problems w/ Anesthesia Additional Past Anesthesia/Blood Transfusion Reaction / Comment(s): states "takes a long time waking up" Past Psychological History: No Psychological Hx Reported Smoking Status: Former smoker Past Alcohol Use History: None Reported Past Drug Use History: None Reported - Past Family History Mother Family Medical History: No Reported History Medications and Allergies Home Medications Medication Instructions Recorded Confirmed Type Estrogens, Conjugated Cream 1 gm VAGINAL DIRECTED PRN 02/10/20 11/06/20 History [Premarin Cream] Pravastatin Sodium [Pravachol] 40 mg PO DAILY 02/10/20 11/06/20 History Secukinumab [Cosentyx Pen] 300 mg SQ Q30D 02/10/20 11/06/20 History glipiZIDE [Glucotrol] 20 mg PO W/BRKFST 02/10/20 11/06/20 History Ascorbic Acid [Vitamin C] 1,000 mg PO DAILY 11/06/20 11/06/20 History Black Cohosh 40 mg PO DAILY 11/06/20 11/06/20 History Calcium Carbonate [Calcium] 600 mg PO BID 11/06/20 11/06/20 History Cholecalciferol [Vitamin D3 (25 50 mcg PO DAILY 11/06/20 11/06/20 History Mcg = 1000 Iu)] Cyanocobalamin (Vitamin B-12) 2,500 mcg PO DAILY 11/06/20 11/06/20 History [Vitamin B-12] Fiber Powder 2 tbsp PO DAILY 11/06/20 11/06/20 History Fluticasone Propionate 1 spray EA NOSTRIL DAILY PRN 11/06/20 11/06/20 History Glucosamine Sulfate 1,000 mg PO DAILY 11/06/20 11/06/20 History Iron 18 mg PO DAILY 11/06/20 11/06/20 History L.acidoph,Paracasei, B.lactis 2 cap PO DAILY 11/06/20 11/06/20 History [Probiotic] Meclizine HCl 25 mg PO TID PRN 11/06/20 11/06/20 History Mirabegron [Myrbetriq] 25 mg PO DAILY 11/06/20 11/06/20 History Multivitamins, Thera [Multivitamin 1 tab PO DAILY 11/06/20 11/06/20 History (formulary)] Ubidecarenone [Co Q-10] 100 mg PO DAILY 11/06/20 11/06/20 History glipiZIDE [Glucotrol] 10 mg PO BID-W/MEALS 11/06/20 11/06/20 History Allergies Allergy/AdvReac Type Severity Reaction Status Date / Time bacitracin Allergy "makes Verified 11/06/20 19:22 [From Neosporin infection ([id number])] worse" coconut Allergy "causes Verified 11/06/20 19:22 pam and throat to go numb" infliximab [From Remicade] Allergy "welts" Verified 11/06/20 19:22 Iodinated Contrast Media Allergy "get Verified 11/06/20 19:22 feeling I'm drowning" neomycin Allergy "makes Verified 11/06/20 19:22 [From Neosporin infection ([id number])] worse" polymyxin B Allergy "makes Verified 11/06/20 19:22 [From Neosporin infection ([id number])] worse" codeine AdvReac Nausea Verified 11/06/20 19:22 hydrocodone AdvReac Nausea Verified 11/06/20 19:22 tramadol [From Ultram] AdvReac Nausea Verified 11/06/20 19:22 metal Allergy "I get Uncoded 11/06/20 17:18 hives to any metal above my neck" blood thinners AdvReac "get Uncoded 11/06/20 17:18 nosebleeds" Physical Exam Vitals: Vital Signs Temp Pulse Resp BP Pulse Ox 11/07/20 06:00 73 18 153/50 97 11/07/20 00:00 52 L 18 167/47 97 11/06/20 21:11 88 18 152/42 97 11/06/20 17:14 99.0 F 52 L 26 H 179/46 92 L Intake and Output 11/06/20 11/07/20 11/07/20 22:59 06:59 14:59 Other: Weight 88.904 kg - Constitutional General appearance: no acute distress - Respiratory Respiratory: bilateral: diminished - Cardiovascular Rhythm: regular Heart sounds: normal: S1, S2 Results 11/06/20 18:00 11/06/20 18:00 Cardiac Enzymes 11/06/20 11/06/20 11/06/20 Range/Units 18:00 18:00 21:20 AST 26 (14-36) U/L Troponin I <0.012 <0.012 (0.000-0.034) ng/mL 11/07/20 Range/Units 00:42 AST (14-36) U/L Troponin I 0.014 (0.000-0.034) ng/mL Coagulation 11/06/20 Range/Units 18:00 PT 11.2 (9.0-12.0) sec APTT 23.8 (22.0-30.0) sec CBC 11/06/20 Range/Units 18:00 WBC 7.8 (3.8-10.6) k/uL RBC 3.51 L (3.80-5.40) m/uL Hgb 10.0 L (11.4-16.0) gm/dL Hct 30.1 L (34.0-46.0) % Plt Count 96 L (150-450) k/uL Comprehensive Metabolic Panel 11/06/20 Range/Units 18:00 Sodium 131 L (137-145) mmol/L Potassium 5.1 (3.5-5.1) mmol/L Chloride 102 (98-107) mmol/L Carbon Dioxide 20 L (22-30) mmol/L BUN 54 H (7-17) mg/dL Creatinine 0.90 (0.52-1.04) mg/dL Glucose 166 H (74-99) mg/dL Calcium 11.6 H (8.4-10.2) mg/dL AST 26 (14-36) U/L ALT 14 (4-34) U/L Alkaline Phosphatase 92 (38-126) U/L Total Protein 7.9 (6.3-8.2) g/dL Albumin 3.7 (3.5-5.0) g/dL Current Medications Generic Name Dose Route Start Last Admin Trade Name Freq PRN Reason Stop Dose Admin Hydrocodone Bitart/Acetaminophen 1 each 11/06/20 18:29 11/07/20 02:27 Hydrocodone/Apap 5-325mg 1 Each Tab PO 1 each Q4HR PRN Administration Moderate Pain Estrogens Conjugated 1 applic 11/06/20 18:31 Estrogens, Conjugated 0.625 Mg/Gm Vaginal Cream 42.5 Gm Tube VAGINAL DIRECTED PRN Vaginal Dryness Glipizide 10 mg 11/07/20 07:30 Glipizide 10 Mg Tab PO AC-BID DESTINEY Sodium Chloride 1,000 mls @ 20 mls/hr 11/06/20 18:30 11/06/20 21:11 Saline 0.9% IV 20 mls/hr .Q24H DESTINEY Administration Linagliptin 5 mg 11/07/20 09:00 Linagliptin 5 Mg Tablet PO DAILY DESTINEY Losartan Potassium 100 mg 11/07/20 12:00 Losartan 50 Mg Tab PO 1200 DESTINEY Naloxone HCl 0.2 mg 11/06/20 18:29 Naloxone 0.4 Mg/Ml 1 Ml Vial IV Q2M PRN Opioid Reversal Non-Formulary Medication 500 mg 11/06/20 21:00 11/06/20 23:36 Ursodiol [Ursodiol] PO Not Given BID DESTINEY Non-Formulary Medication 25 mg 11/07/20 09:00 Empagliflozin [Jardiance] PO DAILY DESTINEY Non-Formulary Medication 300 mg 11/06/20 21:19 11/06/20 23:36 Secukinumab [Cosentyx Pen] SQ Not Given Q30D DESTINEY Ondansetron HCl 4 mg 11/06/20 18:29 Ondansetron 4 Mg/2 Ml Vial IVP Q8HR PRN Nausea And Vomiting Pioglitazone HCl 30 mg 11/07/20 09:00 Pioglitazone 30 Mg Tab PO DAILY DESTINEY Pravastatin Sodium 40 mg 11/07/20 09:00 Pravastatin Sodium 40 Mg Tab PO DAILY DESTINEY Temazepam 15 mg 11/06/20 18:29 Temazepam 15 Mg Cap PO HS PRN Insomnia Intake and Output 11/06/20 11/07/20 11/07/20 22:59 06:59 14:59 Other: Weight 88.904 kg 11/06/20 18:00 11/06/20 18:00 Assessment and Plan Assessment: Assessment #1 AV block seems to be second degree type II #2 shortness of breath likely related to AV block #3 possible atypical pneumonia #4 hypertension #5 diabetes Plan #1 rule out reversible causes for the AV block including thyroid disorder as well as acute coronary event #2 rule out acute coronary event with follow with the serial cardiac enzymes #3 rule out thyroid disorder by checking TSH and free T4 #4 obtain an echocardiogram to establish LV function #5 follow-up with the patient
[2020-11-07] MEDS: NON FORMULARY DRUG (Empagliflozin [Jardiance] 25 MG Tablet) PO SCH (10:06)
[2020-11-07] MEDS: URSODIOL 500 MG PO SCH ×3 (10:07→20:49)
[2020-11-07] MEDS: LINAGLIPTIN 5 MG TABLET PO SCH (10:14)
[2020-11-07] MEDS: PRAVASTATIN SODIUM 40 MG TAB PO SCH (10:14)
[2020-11-07] MEDS: glipiZIDE 10 MG TAB PO SCH ×2 (10:14→20:42)
[2020-11-07] MEDS ORDERED: NON FORMULARY DRUG (Glucosamine Sulfate [Glucosamine Sulfate] 1,000 MG Tablet) PO SCH (10:45)
[2020-11-07] MEDS: PIOGLITAZONE 30 MG TAB PO SCH (11:04)
[2020-11-07 11:29] LABS: T4, Free (Free Thyroxine) 1.18 ng/dL (0.78-2.19)
[2020-11-07] MEDS: PATIENT'S OWN (Mirabegron [Myrbetriq] 25 MG Tab.Er.24h) PO SCH (11:36)
[2020-11-07] MEDS: MULTIVITAMINS, THERA 1 EACH TAB PO SCH (11:41)
[2020-11-07] MEDS: LOSARTAN 50 MG TAB PO SCH (11:41)
[2020-11-07] MEDS: CHOLECALCIFEROL 25 MCG (1000 IU) TABLET PO SCH (11:41)
[2020-11-07] MEDS: ASCORBIC ACID 500 MG TAB PO SCH (11:41)
[2020-11-07] MEDS: CYANOCOBALAMIN 500 MCG TAB PO SCH (11:41)
--- NOTE | 2020-11-07 13:00 | ECHOF ---
Referral Reason:bradycardia MEASUREMENTS -------- HEIGHT: 172.7 cm WEIGHT: 88.9 kg BP: 153/50 RVIDd: 3.0 cm (< 3.3) IVSd: 1.0 cm (0.6 - 1.1) LVIDd: 5.7 cm (3.9 - 5.3) LVPWd: 0.9 cm (0.6 - 1.1) IVSs: 1.5 cm LVIDs: 3.9 cm LVPWs: 1.4 cm LA Diam: 4.1 cm (2.7 - 3.8) LAESV Index (A-L): 38.29 ml/m Ao Diam: 3.1 cm (2.0 - 3.7) AV Cusp: 2.1 cm (1.5 - 2.6) MV EXCURSION: 9.761 mm (> 18.000) MV EF SLOPE: 58 mm/s (70 - 150) EPSS: 0.7 cm AV maxP.14 mmHg AV meanP.70 mmHg RAP: 15.00 mmHg RVSP: 55.50 mmHg FINDINGS -------- Resting bradycardia (HR<60bpm). This was a technically adequate study. The left ventricle is mildly dilated. Left ventricular wall thickness is normal. Overall left stephane tricular systolic function is normal with, an EF between 60 - 65 %. The right ventricle is normal in size. LA is moderately dilated 34-39 ml/m2 The right atrium is normal in size. Interatrial and interventricular septum intact. Mild LVOT obstruction The mitral valve leaflets are mildly thickened. Mild mitral annular calcification present. There is trace to mild mitral regurgitation. The peak and mean MV gradients are 20.66mmHg 4.74mmHg as me asured by doppler. Mild mitral stenosis. Mild tricuspid regurgitation present. There is moderate to severe pulmonary hypertension. The rig ht ventricular systolic pressure, as measured by Doppler, is 55.50mmHg. Trace/mild (physiologic) pulmonic regurgitation. The aortic root size is normal. The inferior vena cava is dilated with poor inspiratory collapse which is consistent with estimated r ight atrial pressure of 15 mmHg. There is no pericardial effusion. CONCLUSIONS -------- 1. Resting bradycardia (HR<60bpm). 2. The left ventricle is mildly dilated. 3. Left ventricular wall thickness is normal. 4. Overall left ventricular systolic function is normal with, an EF between 60 - 65 %. 5. LA is moderately dilated 34-39 ml/m2 6. Mild LVOT obstruction 7. The mitral valve leaflets are mildly thickened. 8. Mild mitral annular calcification present. 9. There is trace to mild mitral regurgitation. 10. The peak and mean MV gradients are 20.66mmHg 4.74mmHg as measured by doppler. 11. Mild mitral stenosis. 12. Mild tricuspid regurgitation present. 13. There is moderate to severe pulmonary hypertension. 14. The right ventricular systolic pressure, as measured by Doppler, is 55.50mmHg. 15. Trace/mild (physiologic) pulmonic regurgitation. 16. The inferior vena cava is dilated with poor inspiratory collapse which is consistent with estimat ed right atrial pressure of 15 mmHg. PETROLOGY TEACHER: Claire Beebe RDCS
[2020-11-07] MEDS ORDERED: FUROSEMIDE 10 MG/ML 4 ML VIAL IV STA (14:57)
[2020-11-07] MEDS: ENOXAPARIN 40 MG/0.4 ML SYRINGE SQ SCH (20:47)
[2020-11-07] MEDS: CALCIUM CARBONATE 500 MG CHEWABLE PO SCH (20:49)
--- NOTE | 2020-11-07 20:54 | P.HPIM ---
History of Present Illness H&P Date: 11/07/20 Chief Complaint: Short of breath History of presenting complaint: This is a very pleasant 70-year-old patient of Dr. Martinez. Chronic stable medical conditions include diabetes, hyperlipidemia, hypertension, hemorrhoids, nonalcoholic fatty liver disease, psoriatic arthritis. For 3 weeks patient be noted that she be short of breath. No orthopnea no edema. No cough no fever no chills. Just short of breath and worse with activity. Review of systems: GEN.: Tired EYES: None HEENT: None NECK: None RESPIRATORY: As above CARDIOVASCULAR: As above GASTROINTESTINAL: None GENITOURINARY: None MUSCULOSKELETAL: Some joint pains LYMPHATICS: None HEMATOLOGICAL: None PSYCHIATRY: None NEUROLOGICAL: None Past medical history to include: Diabetes mellitus, hypertension, hyperlipidemia, nonalcoholic fatty liver disease, psoriatic arthritis, hemorrhoids Social history: Smoke 2 packs a day for 36 years stopped in 1998. No alcohol. Lives alone Family history: Reviewed, noncontributory to presentation Physical examination: VITAL SIGNS: 99, 52, 26, 176/46, 92% room air GENERAL: BMI 29.8, laying in bed, bit tired. EYES: Pupils equal. Conjunctiva normal. HEENT: External appearance of nose and ears normal, oral cavity grossly normal. NECK: JVD not raised; masses not palpable. HEART: First and second heart sounds are normal; no edema. LUNGS: Respiratory rate increased; basal crackles. ABDOMEN: Soft, nontender, liver spleen not palpable, no masses palpable. PSYCH: Alert and oriented x3; mood and affect slightly anxiousl. NEUROLOGICAL: Cranial nerves grossly intact; no facial asymmetry, power and sensation grossly intact. LYMPHATICS: No lymph nodes palpable in the axilla and neck INVESTIGATIONS, reviewed in the clinical context: WBC 7.8 hemoglobin 10 platelets 96 potassium 5.1 creatinine 0.90 Troponin I 3 negative TSH 1.9 proBNP 5230 Coronavirus [PCR]-not detected EKG tracing personally reviewed by me-second degree heart block type II Chest x-ray film personally reviewed by me-infiltrates versus atypical edema Assessment and plan: -New onset of second-degree heart block2, symptomatic Place on telemetry. Cardiology consulted. Patient probably needs a pacemaker -Acute pulmonary edema secondary to second-degree heart block IV Lasix -: Diabetes mellitus type 2 Continue Glucotrol. Follow Accu-Cheks -Hyperlipidemia Continue with Pravachol -Nonalcoholic fatty liver disease Follow-up with PCP/GI upon discharge -Psoriatic arthritis Follow clinically Repeat BMP and BNP in the morning. Care was discussed with the patient. Given the complexity and severity of patient's condition expect the patient to be in the hospital at least for 2 overnights Past Medical History Past Medical History: Diabetes Mellitus, Hyperlipidemia, Hypertension, Liver Disease Additional Past Medical History / Comment(s): blood in stools, hx of hemorrhoids, states fatty liver, psoriatic arthritis, non-alchoholic cirrhosis, History of Any Multi-Drug Resistant Organisms: None Reported Past Surgical History: Appendectomy, Back Surgery, Cholecystectomy, Hysterectomy, Joint Replacement Additional Past Surgical History / Comment(s): total left knee, sx for herniated disc Past Anesthesia/Blood Transfusion Reactions: Previous Problems w/ Anesthesia Additional Past Anesthesia/Blood Transfusion Reaction / Comment(s): states "takes a long time waking up" Past Psychological History: No Psychological Hx Reported Smoking Status: Former smoker Past Alcohol Use History: None Reported Past Drug Use History: None Reported - Past Family History Mother Family Medical History: No Reported History Medications and Allergies Home Medications Medication Instructions Recorded Confirmed Type Estrogens, Conjugated Cream 1 gm VAGINAL DIRECTED PRN 02/10/20 11/06/20 History [Premarin Cream] Pravastatin Sodium [Pravachol] 40 mg PO DAILY 02/10/20 11/06/20 History Secukinumab [Cosentyx Pen] 300 mg SQ Q30D 02/10/20 11/06/20 History glipiZIDE [Glucotrol] 20 mg PO W/BRKFST 02/10/20 11/06/20 History Ascorbic Acid [Vitamin C] 1,000 mg PO DAILY 11/06/20 11/06/20 History Black Cohosh 40 mg PO DAILY 11/06/20 11/06/20 History Calcium Carbonate [Calcium] 600 mg PO BID 11/06/20 11/06/20 History Cholecalciferol [Vitamin D3 (25 50 mcg PO DAILY 11/06/20 11/06/20 History Mcg = 1000 Iu)] Cyanocobalamin (Vitamin B-12) 2,500 mcg PO DAILY 11/06/20 11/06/20 History [Vitamin B-12] Fiber Powder 2 tbsp PO DAILY 11/06/20 11/06/20 History Fluticasone Propionate 1 spray EA NOSTRIL DAILY PRN 11/06/20 11/06/20 History Glucosamine Sulfate 1,000 mg PO DAILY 11/06/20 11/06/20 History Iron 18 mg PO DAILY 11/06/20 11/06/20 History L.acidoph,Paracasei, B.lactis 2 cap PO DAILY 11/06/20 11/06/20 History [Probiotic] Meclizine HCl 25 mg PO TID PRN 11/06/20 11/06/20 History Mirabegron [Myrbetriq] 25 mg PO DAILY 11/06/20 11/06/20 History Multivitamins, Thera [Multivitamin 1 tab PO DAILY 11/06/20 11/06/20 History (formulary)] Ubidecarenone [Co Q-10] 100 mg PO DAILY 11/06/20 11/06/20 History glipiZIDE [Glucotrol] 10 mg PO BID-W/MEALS 11/06/20 11/06/20 History Allergies Allergy/AdvReac Type Severity Reaction Status Date / Time bacitracin Allergy "makes Verified 11/06/20 19:22 [From Neosporin infection ([id number])] worse" coconut Allergy "causes Verified 11/06/20 19:22 pam and throat to go numb" infliximab [From Remicade] Allergy "welts" Verified 11/06/20 19:22 Iodinated Contrast Media Allergy "get Verified 11/06/20 19:22 feeling I'm drowning" neomycin Allergy "makes Verified 11/06/20 19:22 [From Neosporin infection ([id number])] worse" polymyxin B Allergy "makes Verified 11/06/20 19:22 [From Neosporin infection ([id number])] worse" codeine AdvReac Nausea Verified 11/06/20 19:22 hydrocodone AdvReac Nausea Verified 11/06/20 19:22 tramadol [From Ultram] AdvReac Nausea Verified 11/06/20 19:22 metal Allergy "I get Uncoded 11/06/20 17:18 hives to any metal above my neck" blood thinners AdvReac "get Uncoded 11/06/20 17:18 nosebleeds" Physical Exam Vitals: Vital Signs Temp Pulse Resp BP Pulse Ox 11/07/20 06:00 73 18 153/50 97 11/07/20 00:00 52 L 18 167/47 97 11/06/20 21:11 88 18 152/42 97 11/06/20 17:14 99.0 F 52 L 26 H 179/46 92 L Intake and Output 11/06/20 11/07/20 11/07/20 22:59 06:59 14:59 Other: Weight 88.904 kg Results CBC & Chem 7: 11/06/20 18:00 11/06/20 18:00 Labs: Abnormal Lab Results - Last 24 Hours (Table) 11/06/20 11/06/20 Range/Units 18:00 18:00 RBC 3.51 L (3.80-5.40) m/uL Hgb 10.0 L (11.4-16.0) gm/dL Hct 30.1 L (34.0-46.0) % Plt Count 96 L (150-450) k/uL Lymphocytes # 0.8 L (1.0-4.8) k/uL Sodium 131 L (137-145) mmol/L Carbon Dioxide 20 L (22-30) mmol/L BUN 54 H (7-17) mg/dL Glucose 166 H (74-99) mg/dL Calcium 11.6 H (8.4-10.2) mg/dL
[2020-11-07 21:40] LABS: Glucose,Whole Blood 199 mg/dL (75-99)
[2020-11-07] MEDS: INSULIN ASPART (NovoLOG) 100 UNIT/ML VIAL SQ SCH (22:04)
[2020-11-08] MEDS: SODIUM CHLORIDE 0.9% 1,000 ML IV SCH (00:55)
[2020-11-08 06:21] LABS: Glucose,Whole Blood 198 mg/dL (75-99)
[2020-11-08] MEDS: INSULIN ASPART (NovoLOG) 100 UNIT/ML VIAL SQ SCH ×4 (06:26→21:42)
[2020-11-08] MEDS: ASCORBIC ACID 500 MG TAB PO SCH (08:25)
[2020-11-08] MEDS: LINAGLIPTIN 5 MG TABLET PO SCH (08:27)
[2020-11-08] MEDS: CALCIUM CARBONATE 500 MG CHEWABLE PO SCH ×2 (08:27→21:41)
[2020-11-08] MEDS: glipiZIDE 10 MG TAB PO SCH (08:27)
[2020-11-08] MEDS: ENOXAPARIN 40 MG/0.4 ML SYRINGE SQ SCH (08:27)
[2020-11-08] MEDS: CHOLECALCIFEROL 25 MCG (1000 IU) TABLET PO SCH (08:27)
[2020-11-08] MEDS: CYANOCOBALAMIN 500 MCG TAB PO SCH (08:27)
[2020-11-08] MEDS: MULTIVITAMINS, THERA 1 EACH TAB PO SCH (08:27)
[2020-11-08] MEDS: PRAVASTATIN SODIUM 40 MG TAB PO SCH (08:28)
[2020-11-08] MEDS: PIOGLITAZONE 30 MG TAB PO SCH (08:28)
[2020-11-08 09:05] LABS: Calcium 10.2 mg/dL (8.4-10.2); Potassium 4.9 mmol/L (3.5-5.1)
[2020-11-08] MEDS: NON FORMULARY DRUG (Empagliflozin [Jardiance] 25 MG Tablet) PO SCH (09:37)
[2020-11-08] MEDS: PATIENT'S OWN (Mirabegron [Myrbetriq] 25 MG Tab.Er.24h) PO SCH (09:38)
--- NOTE | 2020-11-08 10:21 | P.PN ---
Subjective Progress Note Date: 11/08/20 This is a 70-year-old female with documented history of diabetes, hypertension, hyperlipidemia, liver disease (nonalcoholic cirrhosis), psoriatic arthritis, prior history of smoking, who presented to the hospital with symptoms of shortness of breath with the patient states she's been experiencing for approximately 3-4 weeks. She also states that at times she feels her heart beating irregularly. Her EKG in the emergency room showed sinus rhythm with second-degree type II AV block. She was not on any AV jose luis blocking agents. Chest x-ray on presentation here showed possible atypical pneumonia. White blood cell count has been normal. She is afebrile. BNP level 3690. TSH normal at 1.9 with free T4 of 1.1. Evans virus negative. Patient was seen and examined this morning, she denied any shortness of breath or palpitations, she did state that when she gets up to walk she does feel mildly dizzy. She also complains of significant dysuria and pressure when she tries to urinate, reminds her of when she has had UTIs in the past. She continues to be in what appears to be a second degree type II heart block, her heart rate is maintaining in the 50s. With ambulation her heart rate does go up into the 80s, her blood pressure with ambulation up to 164/48. Objective - Vital Signs Vital signs: Vital Signs Temp 98.0 F 11/08/20 08:00 Pulse 58 L 11/08/20 08:00 Resp 18 11/08/20 08:00 BP 94/55 11/08/20 08:00 Pulse Ox 97 11/08/20 08:00 Intake & Output 11/07/20 11/08/20 11/08/20 18:59 06:59 18:59 Weight 90.1 kg Other: Voiding Method External Catheter - Exam PHYSICAL EXAMINATION: GENERAL: 70-year-old female in no acute distress at the time of my examination HEENT: Head is atraumatic, normocephalic. Pupils equal, round. Sclera anicteric. Conjunctiva are clear. Mucous membranes of the mouth are moist. Neck is supple. There is no elevated jugular venous pressure. No carotid bruit is heard. HEART EXAMINATION: Heart S1, S2 normal. No murmur or gallop heard. CHEST EXAMINATION: Lungs are clear to auscultation and precussion. No chest wall tenderness is noted on palpation or with deep breathing. ABDOMEN: Soft, nontender. Bowel sounds are heard. No organomegaly noted. EXTREMITIES: 2+ peripheral pulses with no evidence of peripheral edema and no calf tenderness noted. NEUROLOGIC patient is awake, alert and oriented 3 . . - Labs CBC & Chem 7: 11/06/20 18:00 11/08/20 08:35 Labs: Abnormal Lab Results - Last 24 Hours (Table) 11/07/20 11/08/20 11/08/20 Range/Units 21:22 06:19 08:35 Sodium 131 L (137-145) mmol/L BUN 46 H (7-17) mg/dL Glucose 206 H (74-99) mg/dL POC Glucose (mg/dL) 199 H 198 H (75-99) mg/dL Assessment and Plan Plan: Assessment and plan #1 second-degree type II AV block #2 possible atypical pneumonia #3 hypertension #4 diabetes #5 hyperlipidemia Plan TSH level is normal as well as a free T4, echocardiogram with Doppler study revealed an ejection fraction of 60-65%, mild LVOT obstruction, moderate to severe pulmonary hypertension. We will check a urinalysis to rule out a UTI as the patient is complaining of some dysuria. We will also continue to monitor the patient, increase her activity and assess heart rate. Further recommendations to follow. DNP note has been reviewed, I agree with a documented findings and plan of care. Patient was seen and examined.
[2020-11-08 10:29] LABS: Appearance,Urine Turbid (Clear); Bacteria,Urine Many /hpf; Bilirubin,Urine Negative (Negative); Blood,Urine Small (Negative); Color,Urine Yellow; Glucose,Urine (UA) Negative (Negative); Ketones,Urine Negative (Negative); Leukocyte Esterase,Urine Large (Negative); Mucus,Urine Rare /hpf; Nitrite,Urine Positive (Negative); PH, Urine 5.5 (5.0-8.0); Protein,Urine 1+ (Negative); RBC,Urine 15 /hpf (0-5); Specific Gravity,Urine 1.014 (1.001-1.035); Squamous Epithelial Cell,Urine 2 /hpf (0-4); Urobilinogen,Urine <2.0 mg/dL (<2.0); WBC,Urine >182 /hpf (0-5)
[2020-11-08 11:56] LABS: Glucose,Whole Blood 192 mg/dL (75-99)
[2020-11-08] MEDS ORDERED: FUROSEMIDE 10 MG/ML 4 ML VIAL IV STA (12:37)
[2020-11-08] MEDS: NITROFURANTOIN MONOHYD/M-CRYST 100 MG CAP PO SCH ×2 (12:53→21:41)
[2020-11-08] MEDS: LOSARTAN 50 MG TAB PO SCH (13:33)
[2020-11-08 16:51] LABS: Glucose,Whole Blood 134 mg/dL (75-99)
[2020-11-08] MEDS: URSODIOL 500 MG PO SCH (18:16)
--- NOTE | 2020-11-08 19:31 | P.PN ---
Progress Note - Text Progress Note Date: 11/08/20 Chief Complaint: Short of breath History of presenting complaint: This is a very pleasant 70-year-old patient of Dr. Martinez. Chronic stable medical conditions include diabetes, hyperlipidemia, hypertension, hemorrhoids, nonalcoholic fatty liver disease, psoriatic arthritis. For 3 weeks patient be noted that she be short of breath. No orthopnea no edema. No cough no fever no chills. Just short of breath and worse with activity. Admitted with second-degree heart block type II. With secondary pulmonary edema. Did respond to IV Lasix Today: Sitting up in a chair. Breathing is a bit better. Didn't make good urine. Oral intake fair. Patient is having some urinary frequency and slight dysuria Review of systems: Was done for constitutional, cardiovascular, GI, pulmonary. relevant finding as above Active Medications Hydrocodone Bitart/Acetaminophen (Hydrocodone/Apap 5-325mg 1 Each Tab) 1 each PO Q4HR PRN PRN Reason: Moderate Pain Last Admin: 11/07/20 23:32 Dose: 1 each Documented by: Ascorbic Acid (Ascorbic Acid 500 Mg Tab) 1,000 mg PO DAILY [facility] Last Admin: 11/08/20 08:25 Dose: 1,000 mg Documented by: Calcium Carbonate/Glycine (Calcium Carbonate 500 Mg Chewable) 500 mg PO BID [facility] Last Admin: 11/08/20 08:27 Dose: 500 mg Documented by: Cholecalciferol (Cholecalciferol 25 Mcg (1000 Iu) Tablet) 50 mcg PO DAILY [facility] Last Admin: 11/08/20 08:27 Dose: 50 mcg Documented by: Cyanocobalamin (Cyanocobalamin 500 Mcg Tab) 2,500 mcg PO DAILY [facility] Last Admin: 11/08/20 08:27 Dose: 2,500 mcg Documented by: Enoxaparin Sodium (Enoxaparin 40 Mg/0.4 Ml Syringe) 40 mg SQ DAILY [facility] Last Admin: 11/08/20 08:27 Dose: 40 mg Documented by: Estrogens Conjugated (Estrogens, Conjugated 0.625 Mg/Gm Vaginal Cream 42.5 Gm Tube) 1 applic VAGINAL DIRECTED PRN PRN Reason: Vaginal Dryness Glipizide (Glipizide 10 Mg Tab) 10 mg PO DAILY [facility] Last Admin: 11/08/20 08:27 Dose: 10 mg Documented by: Insulin Aspart (Insulin Aspart (Novolog) 100 Unit/Ml Vial) 0 unit SQ ACHS [facility]; Protocol Last Admin: 11/08/20 17:24 Dose: Not Given Documented by: Linagliptin (Linagliptin 5 Mg Tablet) 5 mg PO DAILY [facility] Last Admin: 11/08/20 08:27 Dose: 5 mg Documented by: Losartan Potassium (Losartan 50 Mg Tab) 100 mg PO 1200 [facility] Last Admin: 11/08/20 13:33 Dose: 100 mg Documented by: Multivitamins (Multivitamins, Thera 1 Each Tab) 1 each PO DAILY [facility] Last Admin: 11/08/20 08:27 Dose: 1 each Documented by: Naloxone HCl (Naloxone 0.4 Mg/Ml 1 Ml Vial) 0.2 mg IV Q2M PRN PRN Reason: Opioid Reversal Nitrofurantoin Macrocrystals (Nitrofurantoin Monohyd/M-Cryst 100 Mg Cap) 100 mg PO BID [facility] Last Admin: 11/08/20 12:53 Dose: 100 mg Documented by: Non-Formulary Medication (Empagliflozin [Jardiance]) 25 mg PO DAILY [facility] Last Admin: 11/08/20 09:37 Dose: Not Given Documented by: Non-Formulary Medication (Secukinumab [Cosentyx Pen]) 300 mg SQ Q30D [facility] Last Admin: 11/06/20 23:36 Dose: Not Given Documented by: Patient's Own ( Mirabegron [ Myrbetriq] 25 Mg Tab .Er.24h) 25 mg PO DAILY [facility] Last Admin: 11/08/20 09:38 Dose: Not Given Documented by: Patient's Own ( Ursodiol [Ursodiol] 500 Mg Tablet) 500 mg PO BID-W/MEALS [facility] Last Admin: 11/08/20 18:16 Dose: 500 mg Documented by: Ondansetron HCl (Ondansetron 4 Mg/2 Ml Vial) 4 mg IVP Q8HR PRN PRN Reason: Nausea And Vomiting Pioglitazone HCl (Pioglitazone 30 Mg Tab) 30 mg PO DAILY [facility] Last Admin: 11/08/20 08:28 Dose: 30 mg Documented by: Pravastatin Sodium (Pravastatin Sodium 40 Mg Tab) 40 mg PO DAILY [facility] Last Admin: 11/08/20 08:28 Dose: 40 mg Documented by: Temazepam (Temazepam 15 Mg Cap) 15 mg PO HS PRN PRN Reason: Insomnia Active Medications Hydrocodone Bitart/Acetaminophen (Hydrocodone/Apap 5-325mg 1 Each Tab) 1 each PO Q4HR PRN PRN Reason: Moderate Pain Last Admin: 11/07/20 23:32 Dose: 1 each Documented by: Ascorbic Acid (Ascorbic Acid 500 Mg Tab) 1,000 mg PO DAILY [facility] Last Admin: 11/08/20 08:25 Dose: 1,000 mg Documented by: Calcium Carbonate/Glycine (Calcium Carbonate 500 Mg Chewable) 500 mg PO BID [facility] Last Admin: 11/08/20 08:27 Dose: 500 mg Documented by: Cholecalciferol (Cholecalciferol 25 Mcg (1000 Iu) Tablet) 50 mcg PO DAILY [facility] Last Admin: 11/08/20 08:27 Dose: 50 mcg Documented by: Cyanocobalamin (Cyanocobalamin 500 Mcg Tab) 2,500 mcg PO DAILY [facility] Last Admin: 11/08/20 08:27 Dose: 2,500 mcg Documented by: Enoxaparin Sodium (Enoxaparin 40 Mg/0.4 Ml Syringe) 40 mg SQ DAILY [facility] Last Admin: 11/08/20 08:27 Dose: 40 mg Documented by: Estrogens Conjugated (Estrogens, Conjugated 0.625 Mg/Gm Vaginal Cream 42.5 Gm Tube) 1 applic VAGINAL DIRECTED PRN PRN Reason: Vaginal Dryness Glipizide (Glipizide 10 Mg Tab) 10 mg PO DAILY [facility] Last Admin: 11/08/20 08:27 Dose: 10 mg Documented by: Insulin Aspart (Insulin Aspart (Novolog) 100 Unit/Ml Vial) 0 unit SQ ACHS [facility]; Protocol Last Admin: 11/08/20 17:24 Dose: Not Given Documented by: Linagliptin (Linagliptin 5 Mg Tablet) 5 mg PO DAILY [facility] Last Admin: 11/08/20 08:27 Dose: 5 mg Documented by: Losartan Potassium (Losartan 50 Mg Tab) 100 mg PO 1200 [facility] Last Admin: 11/08/20 13:33 Dose: 100 mg Documented by: Multivitamins (Multivitamins, Thera 1 Each Tab) 1 each PO DAILY [facility] Last Admin: 11/08/20 08:27 Dose: 1 each Documented by: Naloxone HCl (Naloxone 0.4 Mg/Ml 1 Ml Vial) 0.2 mg IV Q2M PRN PRN Reason: Opioid Reversal Nitrofurantoin Macrocrystals (Nitrofurantoin Monohyd/M-Cryst 100 Mg Cap) 100 mg PO BID [facility] Last Admin: 11/08/20 12:53 Dose: 100 mg Documented by: Non-Formulary Medication (Empagliflozin [Jardiance]) 25 mg PO DAILY [facility] Last Admin: 11/08/20 09:37 Dose: Not Given Documented by: Non-Formulary Medication (Secukinumab [Cosentyx Pen]) 300 mg SQ Q30D [facility] Last Admin: 11/06/20 23:36 Dose: Not Given Documented by: Patient's Own ( Mirabegron [ Myrbetriq] 25 Mg Tab .Er.24h) 25 mg PO DAILY [facility] Last Admin: 11/08/20 09:38 Dose: Not Given Documented by: Patient's Own ( Ursodiol [Ursodiol] 500 Mg Tablet) 500 mg PO BID-W/MEALS [facility] Last Admin: 11/08/20 18:16 Dose: 500 mg Documented by: Ondansetron HCl (Ondansetron 4 Mg/2 Ml Vial) 4 mg IVP Q8HR PRN PRN Reason: Nausea And Vomiting Pioglitazone HCl (Pioglitazone 30 Mg Tab) 30 mg PO DAILY [facility] Last Admin: 11/08/20 08:28 Dose: 30 mg Documented by: Pravastatin Sodium (Pravastatin Sodium 40 Mg Tab) 40 mg PO DAILY [facility] Last Admin: 11/08/20 08:28 Dose: 40 mg Documented by: Temazepam (Temazepam 15 Mg Cap) 15 mg PO HS PRN PRN Reason: Insomnia Past medical history to include: Diabetes mellitus, hypertension, hyperlipidemia, nonalcoholic fatty liver disease, psoriatic arthritis, hemorrhoids Social history: Smoke 2 packs a day for 36 years stopped in 1998. No alcohol. Lives alone Family history: Reviewed, noncontributory to presentation Physical examination: VITAL SIGNS: 98, 75, 18, 1 10 x 70, 92% room air GENERAL: Sitting upon a chair, awake breathing better EYES: Pupils equal. Conjunctiva normal. HEENT: External appearance of nose and ears normal, oral cavity grossly normal. NECK: JVD not raised; masses not palpable. HEART: First and second heart sounds are normal; no edema. LUNGS: Respiratory rate increased; decreased basal crackles. ABDOMEN: Soft, nontender, liver spleen not palpable, no masses palpable. PSYCH: Alert and oriented x3; mood and affect slightly anxiousl. INVESTIGATIONS, reviewed in the clinical context: November 08: Sodium 131 potassium 4.9 creatinine 0.81 UA positive for leukoesterase WBC WBC 7.8 hemoglobin 10 platelets 96 potassium 5.1 creatinine 0.90 Troponin I 3 negative TSH 1.9 proBNP 5230 Coronavirus [PCR]-not detected EKG tracing personally reviewed by me-second degree heart block type II Chest x-ray film personally reviewed by me-infiltrates versus atypical edema Assessment and plan: -New onset of second-degree heart block2, symptomatic, causing secondary pulmonary edema-persisting Place on telemetry. Cardiology consulted. Patient probably needs -Acute pulmonary edema secondary to second-degree heart block, slow to respond IV Lasix initially given. Repeated doses of IV Lasix now -: Diabetes mellitus type 2 Continue Glucotrol. Follow Accu-Cheks -Hyperlipidemia Continue with Pravachol -Nonalcoholic fatty liver disease Follow-up with PCP/GI upon discharge -Psoriatic arthritis Follow clinically -Acute UTI with cystitis Placed on Macrobid 1 dose of IV Lasix today. BMP in the morning. Possibly pacemaker
[2020-11-08 19:51] LABS: Glucose,Whole Blood 222 mg/dL (75-99)
[2020-11-08] MEDS: HYDROcodone/APAP 5-325MG 1 EACH TAB PO PRN (21:41)
[2020-11-09] MEDS: URSODIOL 500 MG PO SCH ×2 (06:34→17:59)
[2020-11-09] MEDS: INSULIN ASPART (NovoLOG) 100 UNIT/ML VIAL SQ SCH ×4 (06:34→21:05)
[2020-11-09 06:43] LABS: Glucose,Whole Blood 148 mg/dL (75-99)
[2020-11-09 08:07] LABS: Calcium 10.6 mg/dL (8.4-10.2); Potassium 4.6 mmol/L (3.5-5.1)
[2020-11-09] MEDS: CYANOCOBALAMIN 500 MCG TAB PO SCH (09:35)
[2020-11-09] MEDS: CHOLECALCIFEROL 25 MCG (1000 IU) TABLET PO SCH (09:35)
[2020-11-09] MEDS: CALCIUM CARBONATE 500 MG CHEWABLE PO SCH ×2 (09:36→21:05)
[2020-11-09] MEDS: NITROFURANTOIN MONOHYD/M-CRYST 100 MG CAP PO SCH ×2 (09:36→21:05)
[2020-11-09] MEDS: SODIUM CHLORIDE 0.9% 1,000 ML IV SCH ×2 (09:36)
[2020-11-09] MEDS: ASCORBIC ACID 500 MG TAB PO SCH (09:36)
[2020-11-09] MEDS: MULTIVITAMINS, THERA 1 EACH TAB PO SCH (09:36)
[2020-11-09] MEDS: PRAVASTATIN SODIUM 40 MG TAB PO SCH (09:36)
[2020-11-09] MEDS: ENOXAPARIN 40 MG/0.4 ML SYRINGE SQ SCH (09:37)
[2020-11-09] MEDS: LINAGLIPTIN 5 MG TABLET PO SCH (09:37)
[2020-11-09] MEDS: glipiZIDE 10 MG TAB PO SCH (09:37)
[2020-11-09] MEDS: NON FORMULARY DRUG (Empagliflozin [Jardiance] 25 MG Tablet) PO SCH (09:38)
[2020-11-09] MEDS: PIOGLITAZONE 30 MG TAB PO SCH (09:38)
[2020-11-09] MEDS: PATIENT'S OWN (Mirabegron [Myrbetriq] 25 MG Tab.Er.24h) PO SCH (09:38)
--- NOTE | 2020-11-09 09:55 | PN ---
PROGRESS NOTE Mrs. Arroyo os a 70-year-old female with no history of ischemic heart disease, history of diabetes, hyperlipidemia, who presented to the hospital with symptoms of progressive fatigue, lack of energy, dizziness but no syncope. She was noted to be in second- degree AV block with episode of complete heart block. According to her, those symptoms started only 3 weeks ago. She was told a long time ago when she was in her 20s that she may have a valve problem that surgery may be needed, but that has not been an issue. Her echocardiogram revealed a preserved left ventricular size and systolic function. Patient denies any chest discomfort. She had no syncope but presyncopal symptoms. She continues to be at this time on Jardiance, Lovenox subcu, glipizide, Cozaar 100 mg daily, Tradjenta, Actos 30 mg daily, pravastatin 40 mg daily. PHYSICAL EXAMINATION: Blood pressure running in the one teens to 160s with the heart rate in the 50s to 70s. LUNGS: Clear. HEART: Irregular, irregular. S1, S2 with systolic murmur heard at the base. No early diastolic murmur. No rub. ABDOMEN: Soft, nontender. EXTREMITIES: No edema. LAB DATA: Her lab data revealed a BUN and creatinine of 57 and 1.1. IMPRESSION: 1. High-grade AV block with episodes of complete heart block, symptomatic. 2. History of hypertension. 3. Diabetes mellitus. 4. Hyperlipidemia. RECOMMENDATION: I discussed with the patient the findings. I recommend proceed with permanent pacemaker implantation. The rationale behind the procedure as well as the risks and the complications were discussed with her. The procedure will be performed by Dr. Gardner. MMODL / KWAKUN: [id number] /
--- NOTE | 2020-11-09 10:10 | XR ---
EXAMINATION TYPE: XR chest 2V DATE OF EXAM: 11/09/2020 COMPARISON: Chest x-ray [address] chest September 09, 2020 HISTORY: Preprocedure for pacemaker insertion. TECHNIQUE: Frontal and lateral views of the chest are obtained. FINDINGS: There is chronic parenchymal change with persistent left basilar opacity and tiny bilatera l pleural effusions. The cardiac silhouette size is stable and upper limits of normal with atheroscl erotic change aortic knob. The osseous structures are intact. IMPRESSION: Chronic changes with left basilar acute infiltrate and/or atelectasis demonstrated. No s ignificant change from most recent x-ray
[2020-11-09 11:56] LABS: Glucose,Whole Blood 218 mg/dL (75-99)
[2020-11-09] MEDS ORDERED: ceFAZolin 1 GM in SODIUM CHLORIDE 0.9% 250 ML IRRIGATION PRN (14:01)
[2020-11-09] MEDS ORDERED: diphenhydrAMINE 50 MG/ML 1 ML VIAL IVP ONE (14:03)
[2020-11-09] MEDS ORDERED: methylPREDNISolone SOD SUCCI 125 MG/2 ML VIAL IVP ONE (14:03)
[2020-11-09] MEDS ORDERED: IOPAMIDOL-250 50ML BTL IV ONE (14:05)
[2020-11-09] MEDS: LIDOCAINE 1% INJ 10MG/ML (20 ML MDV) SQ ONE ×2 (14:08→14:42)
[2020-11-09] MEDS: fentaNYL (PF) 50 MCG/ML 2 ML AMP IVP ONE ×3 (14:08→14:51)
[2020-11-09] MEDS ORDERED: MIDAZOLAM 2 MG/2 ML VIAL IVP ONE ×2 (14:08→14:37)
[2020-11-09] MEDS ORDERED: IV FLUID CONTINUATION 900 ML IV ONE (14:12)
[2020-11-09] MEDS ORDERED: LIDOCAINE 1% INJ 10MG/ML (20 ML MDV) SQ ONE (14:37)
[2020-11-09] MEDS ORDERED: hydrALAZINE HCL 20 MG/ML 1 ML VIAL IVP ONE (15:11)
[2020-11-09] MEDS ORDERED: HYDROmorphone 0.5 MG/0.5 ML SYRINGE IVP ONE (15:33)
[2020-11-09] MEDS ORDERED: ACETAMINOPHEN TAB 325 MG TAB PO PRN (15:34)
[2020-11-09] MEDS ORDERED: METOPROLOL TARTRATE 5 MG/5 ML VIAL IVP ONE (15:34)
--- NOTE | 2020-11-09 15:45 | P.PCN ---
Date of Procedure: 11/09/20 Preoperative Diagnosis: High degree AV block Postoperative Diagnosis: The same Procedure(s) Performed: Temporary pacemaker followed by permanent pacemaker insertion Description of Procedure: HISTORY: This is a 70-year-old female who was admitted to the hospital dizziness and evidence of high degree AV block with 2 to one conduction. Patient was not on any AV blocking medication. Patient is advised to have permanent pacemaker implantation. CONSENT:I have discussed the risks, benefits and alternative therapies for the above-mentioned procedure and for both sedation/analgesia as well as necessary blood product administration, if indicated, as they pertain to this patient. The patient has indicated understanding and acceptance of the risks and procedures discussed. PROCEDURE: Temporary pacemaker insertion: Patient was prepped and draped in the usual fashion. The right groin is infiltrated with lidocaine. Right femoral vein was entered using Seldinger technique. A temporary 5-Sami pacemaker was advanced into the sheath and was placed in the right ventricular apical region. Satisfactory position was obtained. The shoulders were satisfactory. Pacemaker was set at a rate of 40 and output of 3. Permanent pacemaker insertion: Patient was brought to the lab in a fasting state. Patient was prepped and draped in the usual fashion. Patient was given IV sedation with fentanyl and Versed. The skin below the left clavicle was infiltrated with lidocaine. An incision was made parallel to deltopectoral groove was deepened until the pectoral fascia was exposed. A pocket was created by blunt dissection and cautery. Axillary venography was performed to delineate the course of the axillary vein. 2 sticks were performed into extrathoracic portion of the axillary vein and 2 sheaths were advanced over the guidewires and left in subclavian vein. Conscious Sedation: Versed 3mg Fentanyl 100 g him Dilaudid 0.5 mg Duration 88 minutes LEADS: ATRIAL: . This is manufactured by [employer]. Model number is 5076-52 and the serial number is [id number] VENTRICULAR: This is manufactured by [employer]. Model number is 5076-58. The serial number is [id number] new THE DEVICE: This is manufactured by [employer]. Model number is [id number]. The serial number is [id number] The ventricular lead is maneuvered l with help of a straight and curved stylets into the left ventricle apical region. Satisfactory position was obtained and threshold measurements were made. The atrial lead was then maneuvered into the right atrial appendage. And thresholds were obtained. THRESHOLDS: ATRIUM: The minimum patient threshold is 1.5, pulse width of 0.4 with impedance of 589 ohms P-wave:, 1.5 VENTRICLE: . The minimum patient threshold was 0.625 at pulse width of 0.4. The impedance is 492 R-wave:. 10.5 The leads and pulse generator remained in the pocket after it was washed with antibiotics. Pocket was closed in the usual fashion. The fascia was closed with 2-0 Prolene ,the subcutaneous tissue was closed with 3-0 Prolene and the skin was closed with 4-0 Prolene. PROGRAMMING: MODE: . DDD RATE: 60-130 OUTPUT: Atrium : 3.5 Ventricle : 3.5 FINAL IMPRESSION: #1. Temporary pacemaker insertion. #2. Axillary venography #3. Dual-chamber pacemaker insertion COMPLICATIONS: None PLAN: . Continue monitoring on the telemetry unit. Prophylactic antibiotics. Chest x-ray in the morning.
[2020-11-09] MEDS: LOSARTAN 50 MG TAB PO SCH (15:48)
[2020-11-09 16:36] LABS: Glucose,Whole Blood 237 mg/dL (75-99)
[2020-11-09] MEDS: TROSPIUM CHLORIDE 20 MG TABLET PO SCH ×2 (17:59→21:05)
[2020-11-09 20:56] LABS: Glucose,Whole Blood 414 mg/dL (75-99)
[2020-11-09] MEDS: METOPROLOL TARTRATE 50 MG TAB PO SCH (21:05)
--- NOTE | 2020-11-09 22:45 | P.PN ---
Progress Note - Text Progress Note Date: 11/09/20 Chief Complaint: Short of breath History of presenting complaint: This is a very pleasant 70-year-old patient of Dr. Martinze. Chronic stable medical conditions include diabetes, hyperlipidemia, hypertension, hemorrhoids, nonalcoholic fatty liver disease, psoriatic arthritis. For 3 weeks patient be noted that she be short of breath. No orthopnea no edema. No cough no fever no chills. Just short of breath and worse with activity. Admitted with second-degree heart block type II. With secondary pulmonary edema. Did respond to IV Lasix Today: Saw the patient this morning. Pending pacemaker placement. Breathing stable. Review of systems: Was done for constitutional, cardiovascular, GI, pulmonary. relevant finding as above Active Medications Acetaminophen (Acetaminophen Tab 325 Mg Tab) 650 mg PO Q6HR PRN PRN Reason: Mild Pain Hydrocodone Bitart/Acetaminophen (Hydrocodone/Apap 5-325mg 1 Each Tab) 1 each PO Q4HR PRN PRN Reason: Moderate Pain Last Admin: 11/08/20 21:41 Dose: 1 each Documented by: Ascorbic Acid (Ascorbic Acid 500 Mg Tab) 1,000 mg PO DAILY [facility] Last Admin: 11/09/20 09:36 Dose: 1,000 mg Documented by: Calcium Carbonate/Glycine (Calcium Carbonate 500 Mg Chewable) 500 mg PO BID [facility] Last Admin: 11/09/20 21:05 Dose: 500 mg Documented by: Cholecalciferol (Cholecalciferol 25 Mcg (1000 Iu) Tablet) 50 mcg PO DAILY [facility] Last Admin: 11/09/20 09:35 Dose: 50 mcg Documented by: Cyanocobalamin (Cyanocobalamin 500 Mcg Tab) 2,500 mcg PO DAILY [facility] Last Admin: 11/09/20 09:35 Dose: 2,500 mcg Documented by: Diphenhydramine HCl (Diphenhydramine 50 Mg/Ml 1 Ml Vial) 25 mg IVP ONCE PRN PRN Reason: pre-op Stop: 11/10/20 23:00 Estrogens Conjugated (Estrogens, Conjugated 0.625 Mg/Gm Vaginal Cream 42.5 Gm Tube) 1 applic VAGINAL DIRECTED PRN PRN Reason: Vaginal Dryness Glipizide (Glipizide 10 Mg Tab) 10 mg PO DAILY [facility] Last Admin: 11/09/20 09:37 Dose: Not Given Documented by: Sodium Chloride (Saline 0.9%) 1,000 mls @ 50 mls/hr IV .Q20H [facility] Last Admin: 11/09/20 09:36 Dose: Not Given Documented by: Sodium Chloride (Saline 0.9%) 1,000 mls @ 50 mls/hr IV .Q20H [facility] Last Admin: 11/09/20 09:36 Dose: Not Given Documented by: Insulin Aspart (Insulin Aspart (Novolog) 100 Unit/Ml Vial) 0 unit SQ ACHS [facility]; Protocol Last Admin: 11/09/20 21:05 Dose: 8 unit Documented by: Linagliptin (Linagliptin 5 Mg Tablet) 5 mg PO DAILY [facility] Last Admin: 11/09/20 09:37 Dose: Not Given Documented by: Losartan Potassium (Losartan 50 Mg Tab) 100 mg PO 1200 [facility] Last Admin: 11/09/20 15:48 Dose: Not Given Documented by: Methylprednisolone Sodium Succinate (Methylprednisolone Sod Succi 125 Mg/2 Ml Vial) 125 mg IV ONCE PRN PRN Reason: Pre-Op Stop: 11/10/20 23:00 Metoprolol Tartrate (Metoprolol Tartrate 50 Mg Tab) 50 mg PO BID [facility] Last Admin: 11/09/20 21:05 Dose: 50 mg Documented by: Multivitamins (Multivitamins, Thera 1 Each Tab) 1 each PO DAILY [facility] Last Admin: 11/09/20 09:36 Dose: 1 each Documented by: Naloxone HCl (Naloxone 0.4 Mg/Ml 1 Ml Vial) 0.2 mg IV Q2M PRN PRN Reason: Opioid Reversal Nitrofurantoin Macrocrystals (Nitrofurantoin Monohyd/M-Cryst 100 Mg Cap) 100 mg PO BID [facility] Last Admin: 11/09/20 21:05 Dose: 100 mg Documented by: Non-Formulary Medication (Empagliflozin [Jardiance]) 25 mg PO DAILY [facility] Last Admin: 11/09/20 09:38 Dose: Not Given Documented by: Non-Formulary Medication (Secukinumab [Cosentyx Pen]) 300 mg SQ Q30D [facility] Last Admin: 11/06/20 23:36 Dose: Not Given Documented by: Patient's Own ( Mirabegron [ Myrbetriq] 25 Mg Tab .Er.24h) 25 mg PO DAILY [facility] Last Admin: 11/09/20 09:38 Dose: Not Given Documented by: Patient's Own ( Ursodiol [Ursodiol] 500 Mg Tablet) 500 mg PO BID-W/MEALS [facility] Last Admin: 11/09/20 17:59 Dose: 500 mg Documented by: Ondansetron HCl (Ondansetron 4 Mg/2 Ml Vial) 4 mg IVP Q8HR PRN PRN Reason: Nausea And Vomiting Pioglitazone HCl (Pioglitazone 30 Mg Tab) 30 mg PO DAILY [facility] Last Admin: 11/09/20 09:38 Dose: Not Given Documented by: Pravastatin Sodium (Pravastatin Sodium 40 Mg Tab) 40 mg PO DAILY [facility] Last Admin: 11/09/20 09:36 Dose: 40 mg Documented by: Sodium Chloride (Sodium Chloride 0.9% Flush 10 Ml Syringe) 10 ml IV Q12HR [facility] Last Admin: 11/09/20 21:07 Dose: 10 ml Documented by: Temazepam (Temazepam 15 Mg Cap) 15 mg PO HS PRN PRN Reason: Insomnia Trospium (Trospium Chloride 20 Mg Tablet) 20 mg PO BID [facility] Last Admin: 11/09/20 21:05 Dose: 20 mg Documented by: Past medical history to include: Diabetes mellitus, hypertension, hyperlipidemia, nonalcoholic fatty liver disease, psoriatic arthritis, hemorrhoids Social history: Smoke 2 packs a day for 36 years stopped in 1998. No alcohol. Lives alone Family history: Reviewed, noncontributory to presentation Physical examination: VITAL SIGNS: 98, 77, 18, 87/50, 93% room air GENERAL: Reclining in bed, comfortable EYES: Pupils equal. Conjunctiva normal. HEENT: External appearance of nose and ears normal, oral cavity grossly normal. NECK: JVD not raised; masses not palpable. HEART: First and second heart sounds are normal; no edema. LUNGS: Respiratory rate increased; decreased basal crackles. ABDOMEN: Soft, nontender, liver spleen not palpable, no masses palpable. PSYCH: Alert and oriented x3; mood and affect slightly anxiousl. INVESTIGATIONS, reviewed in the clinical context: November 09: Potassium 4.6 creatinine 1.10 November 08: Sodium 131 potassium 4.9 creatinine 0.81 UA positive for leukoesterase WBC WBC 7.8 hemoglobin 10 platelets 96 potassium 5.1 creatinine 0.90 Troponin I 3 negative TSH 1.9 proBNP 5230 Coronavirus [PCR]-not detected EKG tracing personally reviewed by me-second degree heart block type II Chest x-ray film personally reviewed by me-infiltrates versus atypical edema Assessment and plan: -New onset of second-degree heart block2, symptomatic, causing secondary pulmonary telemetry. Patient related today did get a permanent pacemaker -Acute pulmonary edema secondary to second-degree heart block, improved Received IV Lasix -: Diabetes mellitus type 2 Continue Glucotrol. Follow Accu-Cheks -Hyperlipidemia Continue with Pravachol -Nonalcoholic fatty liver disease Follow-up with PCP/GI upon discharge -Psoriatic arthritis Follow clinically -Acute UTI with cystitis Placed on Macrobid Patient is received a permanent pacemaker placement later this afternoon.
[2020-11-10 05:56] LABS: Glucose,Whole Blood 273 mg/dL (75-99)
[2020-11-10] MEDS: URSODIOL 500 MG PO SCH ×2 (06:32→17:10)
[2020-11-10] MEDS: INSULIN ASPART (NovoLOG) 100 UNIT/ML VIAL SQ SCH ×4 (06:32→21:13)
[2020-11-10] MEDS: SODIUM CHLORIDE 0.9% 1,000 ML IV SCH ×2 (06:33→09:49)
[2020-11-10] MEDS ORDERED: methylPREDNISolone SOD SUCCI 125 MG/2 ML VIAL IV PRN (07:00)
[2020-11-10] MEDS ORDERED: ceFAZolin 1 GM in SODIUM CHLORIDE 0.9% 250 ML IRRIGATION PRN (07:00)
[2020-11-10] MEDS ORDERED: diphenhydrAMINE 50 MG/ML 1 ML VIAL IVP PRN (07:00)
[2020-11-10 08:31] LABS: Calcium 10.2 mg/dL (8.4-10.2); Potassium 5.5 mmol/L (3.5-5.1)
[2020-11-10] MEDS ORDERED: amLODIPine 5 MG TAB PO SCH (09:00)
--- NOTE | 2020-11-10 09:16 | XR ---
EXAMINATION TYPE: XR chest 2V DATE OF EXAM: 11/10/2020 COMPARISON: Chest x-ray 11/09/2020 HISTORY: Lead placement check TECHNIQUE: Frontal and lateral views of the chest are obtained. FINDINGS: There is been interval placement of a generator in the left pectoral region, there are kendall ds in right atrium and ventricle. No evident pneumothorax or other significant interval change. IMPRESSION: No evident comp occasions status post lead placement
--- NOTE | 2020-11-10 09:23 | PN ---
PROGRESS NOTE Ms. Arroyo is a 70-year-old female who presented with symptoms of progressive fatigue and lack of energy, was found to have episode of second-degree AV block, as well as third degree AV block. She underwent permanent pacemaker implantation yesterday by Dr. Gardner and received a dual-chamber pacemaker. She received a [employer] pacer. She is feeling better today. Her breathing is better. Her energy is better. She denies any chest pain. She denies any dizziness. She denies any palpitations. On the monitor, she has normal sensing and pacing. Her medications at this include Jardiance, Tradjenta, Cozaar 100 mg daily, metoprolol tartrate 50 mg twice a day, pravastatin 40 mg daily, Actos 30 mg daily. PHYSICAL EXAMINATION: Her blood pressure is running in the 160s to 180s with the heart rate in the 60s. LUNGS: Clear. HEART: Regular rate and rhythm. S1, S2. No S3. No rub. Pacemaker site noted clean. ABDOMEN: Soft, nontender. EXTREMITIES: No edema. LAB DATA: Lab data revealed BUN and creatinine 48 and 0.81. Her potassium is 5.5. Her sodium is 133. Her chest x-ray shows no evidence of pneumothorax. IMPRESSION: 1. Status post permanent pacemaker implantation for high-grade AV block. 2. History of hypertension, remains elevated. 3. Hyperlipidemia. 4. Diabetes mellitus. RECOMMENDATION: I will add to her regimen amlodipine 5 mg daily to optimize her blood pressure control, increase her activity. Will interrogate her device. If she has no significant abnormality, then I expect she may be able to be discharged home today and followed as an outpatient. MMODL / IJN: [id number] /
[2020-11-10] MEDS: NON FORMULARY DRUG (Empagliflozin [Jardiance] 25 MG Tablet) PO SCH (10:22)
[2020-11-10] MEDS: PATIENT'S OWN (Mirabegron [Myrbetriq] 25 MG Tab.Er.24h) PO SCH (10:22)
[2020-11-10] MEDS: ASCORBIC ACID 500 MG TAB PO SCH (10:24)
[2020-11-10] MEDS: CHOLECALCIFEROL 25 MCG (1000 IU) TABLET PO SCH (10:25)
[2020-11-10] MEDS: CALCIUM CARBONATE 500 MG CHEWABLE PO SCH ×2 (10:25→21:13)
[2020-11-10] MEDS: CYANOCOBALAMIN 500 MCG TAB PO SCH (10:26)
[2020-11-10] MEDS: glipiZIDE 10 MG TAB PO SCH (10:26)
[2020-11-10] MEDS: LINAGLIPTIN 5 MG TABLET PO SCH (10:27)
[2020-11-10] MEDS: METOPROLOL TARTRATE 50 MG TAB PO SCH ×2 (10:27→21:13)
[2020-11-10] MEDS: NITROFURANTOIN MONOHYD/M-CRYST 100 MG CAP PO SCH ×2 (10:28→21:13)
[2020-11-10] MEDS: MULTIVITAMINS, THERA 1 EACH TAB PO SCH (10:28)
[2020-11-10] MEDS: PIOGLITAZONE 30 MG TAB PO SCH (10:28)
[2020-11-10] MEDS: TROSPIUM CHLORIDE 20 MG TABLET PO SCH ×2 (10:29→21:13)
[2020-11-10] MEDS: PRAVASTATIN SODIUM 40 MG TAB PO SCH (10:29)
[2020-11-10 11:53] LABS: Glucose,Whole Blood 139 mg/dL (75-99)
[2020-11-10] MEDS: LOSARTAN 50 MG TAB PO SCH (12:09)
[2020-11-10] MEDS ORDERED: SODIUM POLYSTYRENE SULFONATE 15 GM/60 ML BOTTLE PO STA (12:53)
[2020-11-10] MEDS: CHLORTHALIDONE 25 MG TAB PO SCH (14:28)
[2020-11-10 16:58] LABS: Glucose,Whole Blood 137 mg/dL (75-99)
[2020-11-10 20:14] LABS: Glucose,Whole Blood 183 mg/dL (75-99)
--- NOTE | 2020-11-10 21:31 | P.PN ---
Progress Note - Text Progress Note Date: 11/10/20 Chief Complaint: Short of breath History of presenting complaint: This is a very pleasant 70-year-old patient of Dr. Martinez. Chronic stable medical conditions include diabetes, hyperlipidemia, hypertension, hemorrhoids, nonalcoholic fatty liver disease, psoriatic arthritis. For 3 weeks patient be noted that she be short of breath. No orthopnea no edema. No cough no fever no chills. Just short of breath and worse with activity. Admitted with second-degree heart block type II. With secondary pulmonary edema. Did respond to IV Lasix. Permanent pacemaker placed. Today: Was feeling well this morning. Blood pressure running high in the 180s. Potassium up to 5.5 Review of systems: Was done for constitutional, cardiovascular, GI, pulmonary. relevant finding as above Active Medications Acetaminophen (Acetaminophen Tab 325 Mg Tab) 650 mg PO Q6HR PRN PRN Reason: Mild Pain Hydrocodone Bitart/Acetaminophen (Hydrocodone/Apap 5-325mg 1 Each Tab) 1 each PO Q4HR PRN PRN Reason: Moderate Pain Last Admin: 11/08/20 21:41 Dose: 1 each Documented by: Amlodipine Besylate (Amlodipine 5 Mg Tab) 5 mg PO DAILY [facility] Last Admin: 11/10/20 10:24 Dose: 5 mg Documented by: Ascorbic Acid (Ascorbic Acid 500 Mg Tab) 1,000 mg PO DAILY [facility] Last Admin: 11/10/20 10:24 Dose: 1,000 mg Documented by: Calcium Carbonate/Glycine (Calcium Carbonate 500 Mg Chewable) 500 mg PO BID [facility] Last Admin: 11/10/20 21:13 Dose: 500 mg Documented by: Chlorthalidone (Chlorthalidone 25 Mg Tab) 25 mg PO DAILY [facility] Last Admin: 11/10/20 14:28 Dose: 25 mg Documented by: Cholecalciferol (Cholecalciferol 25 Mcg (1000 Iu) Tablet) 50 mcg PO DAILY [facility] Last Admin: 11/10/20 10:25 Dose: 50 mcg Documented by: Cyanocobalamin (Cyanocobalamin 500 Mcg Tab) 2,500 mcg PO DAILY [facility] Last Admin: 11/10/20 10:26 Dose: 2,500 mcg Documented by: Diphenhydramine HCl (Diphenhydramine 50 Mg/Ml 1 Ml Vial) 25 mg IVP ONCE PRN PRN Reason: pre-op Stop: 11/10/20 23:00 Estrogens Conjugated (Estrogens, Conjugated 0.625 Mg/Gm Vaginal Cream 42.5 Gm Tube) 1 applic VAGINAL DIRECTED PRN PRN Reason: Vaginal Dryness Glipizide (Glipizide 10 Mg Tab) 10 mg PO DAILY [facility] Last Admin: 11/10/20 10:26 Dose: 10 mg Documented by: Sodium Chloride (Saline 0.9%) 1,000 mls @ 50 mls/hr IV .Q20H [facility] Last Admin: 11/10/20 06:33 Dose: 50 mls/hr Documented by: Sodium Chloride (Saline 0.9%) 1,000 mls @ 50 mls/hr IV .Q20H [facility] Last Admin: 11/10/20 09:49 Dose: Not Given Documented by: Insulin Aspart (Insulin Aspart (Novolog) 100 Unit/Ml Vial) 0 unit SQ ACHS [facility]; Protocol Last Admin: 11/10/20 21:13 Dose: 2 unit Documented by: Linagliptin (Linagliptin 5 Mg Tablet) 5 mg PO DAILY [facility] Last Admin: 11/10/20 10:27 Dose: 5 mg Documented by: Losartan Potassium (Losartan 50 Mg Tab) 100 mg PO 1200 [facility] Last Admin: 11/10/20 12:09 Dose: 100 mg Documented by: Methylprednisolone Sodium Succinate (Methylprednisolone Sod Succi 125 Mg/2 Ml Vial) 125 mg IV ONCE PRN PRN Reason: Pre-Op Stop: 11/10/20 23:00 Metoprolol Tartrate (Metoprolol Tartrate 50 Mg Tab) 50 mg PO BID [facility] Last Admin: 11/10/20 21:13 Dose: 50 mg Documented by: Multivitamins (Multivitamins, Thera 1 Each Tab) 1 each PO DAILY [facility] Last Admin: 11/10/20 10:28 Dose: 1 each Documented by: Naloxone HCl (Naloxone 0.4 Mg/Ml 1 Ml Vial) 0.2 mg IV Q2M PRN PRN Reason: Opioid Reversal Nitrofurantoin Macrocrystals (Nitrofurantoin Monohyd/M-Cryst 100 Mg Cap) 100 mg PO BID [facility] Last Admin: 11/10/20 21:13 Dose: 100 mg Documented by: Non-Formulary Medication (Empagliflozin [Jardiance]) 25 mg PO DAILY [facility] Last Admin: 11/10/20 10:22 Dose: Not Given Documented by: Non-Formulary Medication (Secukinumab [Cosentyx Pen]) 300 mg SQ Q30D [facility] Last Admin: 11/06/20 23:36 Dose: Not Given Documented by: Patient's Own ( Mirabegron [ Myrbetriq] 25 Mg Tab .Er.24h) 25 mg PO DAILY [facility] Last Admin: 11/10/20 10:22 Dose: Not Given Documented by: Patient's Own ( Ursodiol [Ursodiol] 500 Mg Tablet) 500 mg PO BID-W/MEALS [facility] Last Admin: 11/10/20 17:10 Dose: 500 mg Documented by: Ondansetron HCl (Ondansetron 4 Mg/2 Ml Vial) 4 mg IVP Q8HR PRN PRN Reason: Nausea And Vomiting Pioglitazone HCl (Pioglitazone 30 Mg Tab) 30 mg PO DAILY [facility] Last Admin: 11/10/20 10:28 Dose: 30 mg Documented by: Pravastatin Sodium (Pravastatin Sodium 40 Mg Tab) 40 mg PO DAILY [facility] Last Admin: 11/10/20 10:29 Dose: 40 mg Documented by: Sodium Chloride (Sodium Chloride 0.9% Flush 10 Ml Syringe) 10 ml IV Q12HR [facility] Last Admin: 11/10/20 21:13 Dose: 10 ml Documented by: Temazepam (Temazepam 15 Mg Cap) 15 mg PO HS PRN PRN Reason: Insomnia Trospium (Trospium Chloride 20 Mg Tablet) 20 mg PO BID [facility] Last Admin: 11/10/20 21:13 Dose: 20 mg Documented by: Past medical history to include: Diabetes mellitus, hypertension, hyperlipidemia, nonalcoholic fatty liver disease, psoriatic arthritis, hemorrhoids Social history: Smoke 2 packs a day for 36 years stopped in 1998. No alcohol. Lives alone Family history: Reviewed, noncontributory to presentation Physical examination: VITAL SIGNS: 87.6, 64, 18, 186.74, 98% room air GENERAL: Sitting up in a chair, comfortable EYES: Pupils equal. Conjunctiva normal. HEENT: External appearance of nose and ears normal, oral cavity grossly normal. NECK: JVD not raised; masses not palpable. HEART: First and second heart sounds are normal; no edema. LUNGS: Respiratory rate normal; lungs clear ABDOMEN: Soft, nontender, liver spleen not palpable, no masses palpable. PSYCH: Alert and oriented x3; mood and affect slightly anxiousl. INVESTIGATIONS, reviewed in the clinical context: November 10: Potassium 5.5 creatinine 0.81 November 09: Potassium 4.6 creatinine 1.10 November 08: Sodium 131 potassium 4.9 creatinine 0.81 UA positive for leukoesterase WBC WBC 7.8 hemoglobin 10 platelets 96 potassium 5.1 creatinine 0.90 Troponin I 3 negative TSH 1.9 proBNP 5230 Coronavirus [PCR]-not detected EKG tracing personally reviewed by me-second degree heart block type II Chest x-ray film personally reviewed by me-infiltrates versus atypical edema Assessment and plan: -New onset of second-degree heart block2, symptomatic, causing secondary pulmonary telemetry. Received permanent pacemaker -Acute pulmonary edema secondary to second-degree heart block, improved Received IV Lasix -: Diabetes mellitus type 2 Continue Glucotrol. Follow Accu-Cheks -Hyperlipidemia Continue with Pravachol -Nonalcoholic fatty liver disease Follow-up with PCP/GI upon discharge -Psoriatic arthritis Follow clinically -Acute UTI with cystitis Placed on Macrobid -Essential hypertension, uncontrolled Losartan dose given by cardiology -Hyperkalemia 5.5 Expected to go further by losartan. Kayexalate 30 g. Renal diet. Explained to the patient that at discharge will be held because of high blood pressure and potassium at that he needs to come down. She understands.
[2020-11-11] MEDS: SODIUM CHLORIDE 0.9% 1,000 ML IV SCH ×2 (05:33)
[2020-11-11 06:04] LABS: Glucose,Whole Blood 183 mg/dL (75-99)
[2020-11-11] MEDS: INSULIN ASPART (NovoLOG) 100 UNIT/ML VIAL SQ SCH ×2 (06:21→12:21)
[2020-11-11] MEDS: URSODIOL 500 MG PO SCH (06:21)
[2020-11-11 07:42] VITALS: PULSE 64
[2020-11-11 08:44] LABS: Calcium 9.4 mg/dL (8.4-10.2); Potassium 4.5 mmol/L (3.5-5.1)
[2020-11-11] MEDS ORDERED: amLODIPine 10 MG TAB PO SCH (09:00)
[2020-11-11] MEDS: ASCORBIC ACID 500 MG TAB PO SCH (10:32)
[2020-11-11] MEDS: CALCIUM CARBONATE 500 MG CHEWABLE PO SCH (10:35)
[2020-11-11] MEDS: CHLORTHALIDONE 25 MG TAB PO SCH (10:35)
[2020-11-11] MEDS: CHOLECALCIFEROL 25 MCG (1000 IU) TABLET PO SCH (10:36)
[2020-11-11] MEDS: CYANOCOBALAMIN 500 MCG TAB PO SCH (10:37)
[2020-11-11] MEDS: METOPROLOL TARTRATE 50 MG TAB PO SCH (10:38)
[2020-11-11] MEDS: glipiZIDE 10 MG TAB PO SCH (10:38)
[2020-11-11] MEDS: LINAGLIPTIN 5 MG TABLET PO SCH (10:38)
[2020-11-11] MEDS: NITROFURANTOIN MONOHYD/M-CRYST 100 MG CAP PO SCH (10:39)
[2020-11-11] MEDS: MULTIVITAMINS, THERA 1 EACH TAB PO SCH (10:39)
[2020-11-11] MEDS: PRAVASTATIN SODIUM 40 MG TAB PO SCH (10:40)
[2020-11-11] MEDS: TROSPIUM CHLORIDE 20 MG TABLET PO SCH (10:40)
[2020-11-11] MEDS: PIOGLITAZONE 30 MG TAB PO SCH (10:40)
--- NOTE | 2020-11-11 10:49 | P.PN ---
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 Patient was found to have episode of AV block second degree type II, as well as third degree AV block. Patient underwent permanent pacemaker implantation on 11/09/[address] Gardner and recieved a dual chamber pacemaker. She recieved a [employer] pacer. Interrogation of her pacemaker with no significant abnormalities. She was going to be discharged yesterday, however, found to be hyperkalemic (K 5.5) and hypertensive BP 180s/70s. She is currently being maintained on amlodipine 5mg daily, chlorithalidone 25mg daily, metoprolol tartrate 50mg BID, pravastatin 40mg daily, losartan 100mg daily, Jardiance, Tradjenta and Actos daily. She was given Kayexalate for her hyperkalemia. Patient is seen and examined at bedside. No complaints. Eager to go home. BP 182/74 HR 64, maintaining oxygen saturations >92% on room air, afebrile. Laboratory data reviewed, Sodium 135, K 4.5, sCr 0.80, BUN 48. PHYSICAL EXAMINATION CONSTITUTIONAL: No apparent distress. HEENT: Head is normocephalic. Pupils are equal, round. Sclerae anicteric. Mucous membranes of the mouth are moist. No carotid bruit. CHEST EXAMINATION: Lungs are clear to auscultation. No chest wall tenderness is noted on palpation or with deep breathing. HEART EXAMINATION: Regular rate and rhythm. S1, S2 heard. Systolic murmur best heard at the base, no gallops or rub. ABDOMEN: Soft, nontender. Positive bowel sounds. EXTREMITIES: 2+ peripheral pulses, no lower extremity edema and no calf tenderness. NEUROLOGIC EXAMINATION: Patient is awake, alert and oriented x3. ASSESSMENT -High grade AV block s/p permanent pacemaker implantation -Type 2 Diabetes -History of hypertension -Hyperlipidemia -Hyperkalemia- resolved PLAN -Increased amlodipine to 10mg daily -Potassium has improved, if BP improves, ok to discharge from cardiology perspective -Patient will follow up with Dr. Melgoza outpatient. Nurse Practitioner note has been reviewed, I agree with a documented findings and plan of care. Patient was seen and examined. Objective - Vital Signs Vital signs: Vital Signs Temp 97.4 F L 11/11/20 07:40 Pulse 64 11/11/20 07:40 Resp 16 11/11/20 07:40 BP 182/74 11/11/20 07:40 Pulse Ox 94 L 11/11/20 07:40 Intake & Output 11/10/20 11/11/20 11/11/20 18:59 06:59 18:59 Intake Total 720 240 Output Total 300 680 Balance 420 -680 240 Weight 91.1 kg Intake: Oral 720 240 Output: Urine 300 680 Other: Voiding Method Bedside Commode Toilet Bedside Commode # Voids 3 1 - Labs CBC & Chem 7: 11/06/20 18:00 11/11/20 07:55 Labs: Abnormal Lab Results - Last 24 Hours (Table) 11/10/20 11/10/20 11/10/20 Range/Units 11:52 16:56 20:13 Sodium (137-145) mmol/L BUN (7-17) mg/dL Glucose (74-99) mg/dL POC Glucose (mg/dL) 139 H 137 H 183 H (75-99) mg/dL 11/11/20 11/11/20 Range/Units 06:03 07:55 Sodium 135 L (137-145) mmol/L BUN 48 H (7-17) mg/dL Glucose 195 H (74-99) mg/dL POC Glucose (mg/dL) 183 H (75-99) mg/dL Microbiology - Last 24 Hours (Table) 11/08/20 09:45 Urine Culture - Final Urine,Voided Escherichia coli
[2020-11-11] MEDS: NON FORMULARY DRUG (Empagliflozin [Jardiance] 25 MG Tablet) PO SCH (11:10)
[2020-11-11] MEDS: PATIENT'S OWN (Mirabegron [Myrbetriq] 25 MG Tab.Er.24h) PO SCH (11:10)
[2020-11-11 11:32] VITALS: RESP 17; TEMP 97.2
[2020-11-11 11:55] LABS: Glucose,Whole Blood 245 mg/dL (75-99)
[2020-11-11] MEDS: LOSARTAN 50 MG TAB PO SCH (12:21)
[2020-11-11 13:22] VITALS: BP 138/40
--- NOTE | 2020-11-11 22:41 | P.DS ---
Providers Date of admission: 11/06/20 18:29 Expected date of discharge: 11/11/20 Attending physician: Onesimo Hutchins Consults: 11/06/20 18:29 Consult Physician Stat Consulting Provider: Tomasz Melgoza Consult Reason/Comments: heart block Do you want consulting provider notified?: Yes Primary care physician: Michael Martinez [facility] Course: Chief Complaint: Short of breath History of presenting complaint: This is a very pleasant 70-year-old patient of Dr. Martinez. Chronic stable medical conditions include diabetes, hyperlipidemia, hypertension, hemorrhoids, nonalcoholic fatty liver disease, psoriatic arthritis. For 3 weeks patient be noted that she be short of breath. No orthopnea no edema. No cough no fever no chills. Just short of breath and worse with activity. Admitted with second-degree heart block type II. With secondary pulmonary edema. Did respond to IV Lasix. Permanent pacemaker placed. Also had UTI from ESBL/E. coli Today: Doing well this morning. Potassium corrected. Blood pressure is good. Had some hemorrhoidal bleeding. He has topical cream. Discussed with the patient. Cleared by cardiology. Patient will complete a course of nitrofurantoin Consultation: [facility] Past medical history to include: Diabetes mellitus, hypertension, hyperlipidemia, nonalcoholic fatty liver disease, psoriatic arthritis, hemorrhoids Social history: Smoke 2 packs a day for 36 years stopped in 1998. No alcohol. Lives alone Family history: Reviewed, noncontributory to presentation Physical examination: VITAL SIGNS: 97.2, 64, 17, 1 38 x 40, 95% room air GENERAL: Sitting up in a chair, comfortable EYES: Pupils equal. Conjunctiva normal. HEENT: External appearance of nose and ears normal, oral cavity grossly normal. NECK: JVD not raised; masses not palpable. HEART: First and second heart sounds are normal; no edema. LUNGS: Respiratory rate normal; lungs clear ABDOMEN: Soft, nontender, liver spleen not palpable, no masses palpable. PSYCH: Alert and oriented x3; mood and affect slightly anxiousl. INVESTIGATIONS, reviewed in the clinical context: November 11: Potassium 4.5 creatinine 0.80 UA positive for leukoesterase WBC Urine culture: E. coli/ESBL WBC 7.8 hemoglobin 10 platelets 96 potassium 5.1 creatinine 0.90 Troponin I 3 negative TSH 1.9 proBNP 5230 Coronavirus [PCR]-not detected EKG tracing personally reviewed by me-second degree heart block type II Chest x-ray film personally reviewed by me-infiltrates versus atypical edema Assessment and plan: -New onset of second-degree heart block2, symptomatic, causing secondary pulmonary telemetry. Received permanent pacemaker -Acute pulmonary edema secondary to second-degree heart block, improved Received IV Lasix -: Diabetes mellitus type 2 Continue Glucotrol. Follow Accu-Cheks -Hyperlipidemia Continue with Pravachol -Nonalcoholic fatty liver disease Follow-up with PCP/GI upon discharge -Psoriatic arthritis Follow clinically -Acute UTI with cystitis, secondary to E. coli ESBL Placed on Macrobid -Essential hypertension, uncontrolled Medication adjusted -Hyperkalemia 5.5-corrected Expected to go further by losartan. Kayexalate 30 g. Renal diet. -Hemorrhoidal bleeding Patient has topical cream Disposition: Home Plan - Discharge Summary Discharge Rx Participant: No New Discharge Prescriptions: New Losartan [Cozaar] 100 mg PO 1200 #60 tab Empagliflozin [Jardiance] 25 mg PO DAILY Chlorthalidone [Hygroton] 25 mg PO DAILY #30 tab amLODIPine [Norvasc] 10 mg PO DAILY #60 tab Ursodiol [Ursodiol] 500 mg PO BID-W/MEALS #10 Metoprolol Tartrate [Lopressor] 50 mg PO BID #60 tab Nitrofurantoin Monohyd/M-Cryst [Macrobid] 100 mg PO BID #6 cap Continue Pravastatin Sodium [Pravachol] 40 mg PO DAILY Estrogens, Conjugated Cream [Premarin Cream] 1 gm VAGINAL DIRECTED PRN PRN Reason: Vaginal Dryness glipiZIDE [Glucotrol] 20 mg PO W/BRKFST Secukinumab [Cosentyx Pen] 300 mg SQ Q30D Calcium Carbonate [Calcium] 600 mg PO BID Ascorbic Acid [Vitamin C] 1,000 mg PO DAILY Mirabegron [Myrbetriq] 25 mg PO DAILY Meclizine HCl 25 mg PO TID PRN PRN Reason: Vertigo L.acidoph,Paracasei, B.lactis [Probiotic] 2 cap PO DAILY Ubidecarenone [Co Q-10] 100 mg PO DAILY Cyanocobalamin (Vitamin B-12) [Vitamin B-12] 2,500 mcg PO DAILY Cholecalciferol [Vitamin D3 (25 Mcg = 1000 Iu)] 50 mcg PO DAILY Iron 18 mg PO DAILY Glucosamine Sulfate 1,000 mg PO DAILY Multivitamins, Thera [Multivitamin (formulary)] 1 tab PO DAILY Fluticasone Propionate 1 spray EA NOSTRIL DAILY PRN PRN Reason: Allergy Symptoms glipiZIDE [Glucotrol] 10 mg PO BID-W/MEALS Fiber Powder 2 tbsp PO DAILY No Action Black Cohosh 40 mg PO DAILY Discharge Medication List Estrogens, Conjugated Cream [Premarin Cream] 1 gm VAGINAL DIRECTED PRN 02/10/20 [History] Pravastatin Sodium [Pravachol] 40 mg PO DAILY 02/10/20 [History] Secukinumab [Cosentyx Pen] 300 mg SQ Q30D 02/10/20 [History] glipiZIDE [Glucotrol] 20 mg PO W/BRKFST 02/10/20 [History] Ascorbic Acid [Vitamin C] 1,000 mg PO DAILY 11/06/20 [History] Black Cohosh 40 mg PO DAILY 11/06/20 [History] Calcium Carbonate [Calcium] 600 mg PO BID 11/06/20 [History] Cholecalciferol [Vitamin D3 (25 Mcg = 1000 Iu)] 50 mcg PO DAILY 11/06/20 [History] Cyanocobalamin (Vitamin B-12) [Vitamin B-12] 2,500 mcg PO DAILY 11/06/20 [History] Fiber Powder 2 tbsp PO DAILY 11/06/20 [History] Fluticasone Propionate 1 spray EA NOSTRIL DAILY PRN 11/06/20 [History] Glucosamine Sulfate 1,000 mg PO DAILY 11/06/20 [History] Iron 18 mg PO DAILY 11/06/20 [History] L.acidoph,Paracasei, B.lactis [Probiotic] 2 cap PO DAILY 11/06/20 [History] Meclizine HCl 25 mg PO TID PRN 11/06/20 [History] Mirabegron [Myrbetriq] 25 mg PO DAILY 11/06/20 [History] Multivitamins, Thera [Multivitamin (formulary)] 1 tab PO DAILY 11/06/20 [History] Ubidecarenone [Co Q-10] 100 mg PO DAILY 11/06/20 [History] glipiZIDE [Glucotrol] 10 mg PO BID-W/MEALS 11/06/20 [History] Chlorthalidone [Hygroton] 25 mg PO DAILY #30 tab 11/11/20 [Rx] Empagliflozin [Jardiance] 25 mg PO DAILY 11/11/20 [Rx] Losartan [Cozaar] 100 mg PO 1200 #60 tab 11/11/20 [Rx] Metoprolol Tartrate [Lopressor] 50 mg PO BID #60 tab 11/11/20 [Rx] Nitrofurantoin Monohyd/M-Cryst [Macrobid] 100 mg PO BID #6 cap 11/11/20 [Rx] Ursodiol [Ursodiol] 500 mg PO BID-W/MEALS #10 11/11/20 [Rx] amLODIPine [Norvasc] 10 mg PO DAILY #60 tab 11/11/20 [Rx] Follow up Appointment(s)/Referral(s): [facility] [Provider Group] - 11/16/20 2:00 pm (Monday Device check only) Tomasz Melgoza MD [STAFF PHYSICIAN] - 11/20/20 1:45 pm (Monday) Michael Mratinez DO [Primary Care Provider] - 11/18/20 9:45 am (Monday) Patient Instructions/Handouts: Pacemaker (DC) Discharge Disposition: HOME SELF-CARE
== END 2020-11-11 15:54 | disposition home or self-care (01) | DRG 242 ==
LOC: EC 17:10 → 3SCARD 18:29
PROVIDERS: ADMIT Hospitalist; ATTEND Hospitalist
PROC: 02HK3JZ Insertion of Pacemaker Lead into Right Ventricle, Percutaneous Approach (ICD-10-PCS; principal; 2020-11-09 12:55)
PROC: 0JH606Z Insertion of Pacemaker, Dual Chamber into Chest Subcutaneous Tissue and Fascia, Open Approach (ICD-10-PCS; principal; 2020-11-09 12:55)
PROC: 02H63JZ Insertion of Pacemaker Lead into Right Atrium, Percutaneous Approach (ICD-10-PCS; principal; 2020-11-09 12:55)
DX: I44.2 Atrioventricular block, complete (principal); J81.0 Acute pulmonary edema; N30.00 Acute cystitis without hematuria; I27.20 Pulmonary hypertension, unspecified; L40.50 Arthropathic psoriasis, unspecified; E11.9 Type 2 diabetes mellitus without complications; K74.60 Unspecified cirrhosis of liver; B96.20 Unspecified Escherichia coli [E. coli] as the cause of diseases classified elsewhere; Z20.822 Contact with and (suspected) exposure to COVID-19; K76.0 Fatty (change of) liver, not elsewhere classified; E87.5 Hyperkalemia; E86.0 Dehydration; K76.9 Liver disease, unspecified; I10 Essential (primary) hypertension; E78.5 Hyperlipidemia, unspecified; K64.9 Unspecified hemorrhoids; Z79.84 Long term (current) use of oral hypoglycemic drugs; Z79.899 Other long term (current) drug therapy; Z87.440 Personal history of urinary (tract) infections; Z90.49 Acquired absence of other specified parts of digestive tract; Z87.19 Personal history of other diseases of the digestive system; Z90.710 Acquired absence of both cervix and uterus; Z96.652 Presence of left artificial knee joint; Z87.39 Personal history of other diseases of the musculoskeletal system and connective tissue; Z87.891 Personal history of nicotine dependence; Z60.2 Problems related to living alone; Z98.890 Other specified postprocedural states; Z88.3 Allergy status to other anti-infective agents; Z91.041 Radiographic dye allergy status; Z88.5 Allergy status to narcotic agent; Z88.8 Allergy status to other drugs, medicaments and biological substances; Z91.018 Allergy to other foods; Z91.048 Other nonmedicinal substance allergy status
CPT/HCPCS: 33208; 36415; 71046; 80048; 80053; 81001; 83735; 83880; 84439; 84443; 84484; 85025; 85610; 85730; 87077; 87086; 87186; 87635; 93005; 93306; 99285

== ENCOUNTER → 2021-02-23 | Outpatient (CLI) | payer MEDICARE ==
[2021-02-23 14:36] LABS: African American GFR (CKD) >90 (>60 ml/min/1.73 sqM); Blood Urea Nitrogen 34 mg/dL (7-17); Non-African American GFR(CKD) 84 (>60 ml/min/1.73 sqM)
--- NOTE | 2021-02-23 15:46 | CT ---
EXAMINATION TYPE: CT chest w con DATE OF EXAM: 02/23/2021 COMPARISON: 09/09/2020 HISTORY: f/u nodules CT DLP: 440.2 mGycm, Automated exposure control for dose reduction was used. CONTRAST: Performed injected with 100 mL of Isovue 300. TECHNIQUE: Axial images were obtained at 5 mm thick sections. Reconstructed images are reviewed on [employer] computer in the coronal plane. FINDINGS: Portion of the thyroid visualized is normal. There is a 0.4 cm nodule within the right middle lobe. Series 4 image 36. Pleural calcification is present anterior left chest There is a mass along the major fissure on the left upper lung field measuring 2.3 x 1.7 cm. This is enlarged from comparison. Multiple small peripheral nodules are present near the pleural margin mass but appear stable over the interval. No enlarged mediastinal or hilar adenopathy is evident. The ascending aorta diameter at the level o f the main pulmonary artery is 3.2 cm. The main pulmonary artery diameter at the bifurcation is 3.[address] sections are obtained through the upper abdomen. Abdomen is essentially unremarkable. IMPRESSIONS: 1. Enlarging nodule along the major fissure left upper lung field. PET/CT recommended for additional evaluation. 2. Multiple stable appearing small nodules in the left upper lung density. 2. Additional nodularity within the chest appears stable.
== END | disposition home or self-care (01) ==
LOC: RADCTMAIN 13:42
PROVIDERS: ATTEND Internal Medicine Hematology & Oncology
DX: R91.8 Other nonspecific abnormal finding of lung field (principal); Z88.5 Allergy status to narcotic agent; Z88.6 Allergy status to analgesic agent
CPT/HCPCS: 82565; 84520; 71260; 36415; Q9967

== ENCOUNTER → 2021-03-05 | Outpatient (CLI) | payer MEDICARE ==
--- NOTE | 2021-03-08 18:45 | PE ---
EXAMINATION TYPE: PET CT fusion skull to thigh DATE OF EXAM: 03/05/2021 CLINICAL HISTORY: 70-year-old female R91.1, right middle lobe solitary pulmonary nodule initial evalu ation TECHNIQUE: Following the intravenous administration of 13.59 mCi of F-18 FDG, whole body images are performed from the skull base to the midthigh. Images are reviewed on the computer in the coronal, axial, and sagittal planes. Reconstructed rotating images are created on independent workstation and reviewed on the computer. A localization and attenuation correction CT is performed in conjunction with the PET scan. Glucose level: 135 mg/dL Injection site: Right arm COMPARISON: CT chest 02/23/2021 and 09/09/2020. FINDINGS: PET: Some mild physiologic uptake in the region of the tonsils. Additional physiologic FDG uptake within t he remainder of the neck. Stable 1.5 cm focal opacity posterior left upper lobe, axial image 69 showing mild increased uptake, max SUV 1.7. Some physiologic activity associated with the bilateral fibroglandular tissue. Average liver SUV 2.5. Moderate focal increased uptake at the anus, max SUV 4.2. This should be correlated with direct inspe ction. Otherwise, physiologic FDG uptake within the abdomen and pelvis. Moderate uptake right base of the thumb probably on a degenerative basis or related to the injection site, max SUV 4.3. Clinically correlate. ATTENUATION CORRECTION CT: Paranasal sinuses and mastoid air cells well pneumatized. Orotracheal: Appears clear. No cervical lym phadenopathy identified. Left anterior chest wall pacemaker generator with right atrial and right ventricular leads. Heart mildly enlarged. Small 6 mm pericardial effusion along the left side of the heart. LAD coronary artery calcifications are present. Near normal caliber with moderate atherosclerotic arch calcificat ions and conventional arch vessel branching anatomy. No thoracic lymphadenopathy by CT size criteria. Biapical pleural-parenchymal scarring. Some scattered groundglass in the lungs likely patchy atelect asis from low lung volumes. Strandy atelectasis left base. No consolidation or pleural effusion. Nodular hepatic contour suggests underlying cirrhosis. Cholecystectomy clips. Bulky spleen. Moderate atherosclerotic calcifications abdominal aorta, severe at the aortic bifurcation and proximal common iliac arteries with possible severe stenoses. No dilated small bowel, free fluid, or free air. No mesenteric or retroperitoneal lymphadenopathy. Sc attered mild stool. No pericolonic inflammatory change. Bladder partially distended. Pelvic phleboliths. No abnormal fluid collection in the pelvis or pelvic lymphadenopathy. Uterus surgically absent. Neither ovary identified. Bones: Moderate degenerative change at the hips. Facet arthropathy lower lumbar spine. Bridging anter ior endplate spondylosis lower thoracic spine. Mild degenerative change at the shoulders. IMPRESSION: 1. A 1.5 cm posterior left upper lobe pulmonary nodule is relatively unchanged from 09/09/2020 but lexie ws mild hypermetabolism, maximum SUV 1.7. Given stability and the mild increased uptake, a low-grade primary neoplasm is not excluded. If no intervention at this time, ongoing close surveillance will be recommended. 2. Moderate focal uptake at the anus may be physiologic. Correlate with physical exam/direct inspecti on. 3. Additional moderate focal uptake at the base of the right thumb. Correlate for any symptomatology here such as underlying arthritis, in which case, radiographs can be obtained. Also, inquire with the patient as to if this corresponds to the FDG injection site. 4. Incidental: Cirrhosis. Severe atherosclerotic stenoses at the aortic bifurcation and proximal righ t and left common iliac arteries.
== END | disposition home or self-care (01) ==
LOC: RADPETMAIN 16:47
PROVIDERS: ATTEND Internal Medicine Hematology & Oncology
DX: I70.0 Atherosclerosis of aorta (principal); I35.0 Nonrheumatic aortic (valve) stenosis; R91.1 Solitary pulmonary nodule; K74.60 Unspecified cirrhosis of liver
CPT/HCPCS: 78815; A9552

== ENCOUNTER → 2021-03-19 | Outpatient (CLI) | payer MEDICARE ==
[2021-03-20 00:24] LABS: Basophils # (A) 0.02 X 10*3/uL (0.00-0.10); Basophils % (A) 0.5 %; Eosinophils # (A) 0.07 X 10*3/uL (0.04-0.35); Eosinophils % (A) 1.7 %; HCT 32.4 % (37.2-46.3); HGB 10.4 g/dL (12.0-15.0); Lymphocytes # (A) 0.88 X 10*3/uL (0.90-5.00); Lymphocytes % (A) 21.5 %; MCH 28.4 pg (27.0-32.0); MCHC 32.1 g/dL (32.0-37.0); MCV 88.5 fL (80.0-97.0); Mean Platelet Volume 14.3 fL (9.5-12.2); Monocytes # (A) 0.43 X 10*3/uL (0.20-1.00); Monocytes % (A) 10.5 %; Neutrophils # (A) 2.68 X 10*3/uL (1.80-7.70); Neutrophils % (A) 65.6 %; Platelet Count 100 X 10*3/uL (140-440); RBC 3.66 X 10*6/uL (4.10-5.20); WBC 4.09 X 10*3/uL (4.50-10.00)
[2021-03-20 00:27] LABS: INR 1.05 (0.90-1.11); Prothrombin Time 11.4 sec (9.9-11.9)
[2021-03-20 13:20] LABS: African American GFR (CKD) 66.6 (60.0-200.0); Albumin 4.1 g/dL (3.80-4.90); Albumin/Globulin Ratio 1.14 (1.60-3.17); Anion Gap 13.4 mmol/L (4.00-12.00); Calcium 9.3 mg/dL (8.7-10.3); Carbon Dioxide 18.6 mmol/L (21.6-31.8); Globulin 3.6 g/dL (1.6-3.3); Non-African American GFR(CKD) 57.4 (60.0-200.0); Potassium 4.3 mmol/L (3.5-5.5); Total Bilirubin 0.5 mg/dL (0.3-1.2); Total Protein 7.7 g/dL (6.2-8.2)
== END | disposition home or self-care (01) ==
LOC: LABWHC1 15:04
PROVIDERS: ATTEND Physician Assistant
DX: K74.60 Unspecified cirrhosis of liver (principal)
CPT/HCPCS: 36415; 80053; 82105; 85025; 85610

== ENCOUNTER 2021-04-09 06:10 | Day surgery (SDC) | payer MEDICARE ==
[2021-04-07 09:59] VITALS: BMI 30.4
[2021-04-09] MEDS ORDERED: LACTATED RINGERS 1,000 ML IV SCH (06:21)
[2021-04-09 06:53] VITALS: RESP 16; TEMP 96.6
[2021-04-09 07:21] LABS: Glucose,Whole Blood 161 mg/dL (75-99)
[2021-04-09 07:53] VITALS: BP 145/75; PULSE 62
[2021-04-09 08:05] LABS: Basophils % (A) 1 %; Eosinophils # (A) 0.1 k/uL (0-0.7); Eosinophils % (A) 3 %; HCT 35.5 % (34.0-46.0); HGB 11.9 gm/dL (11.4-16.0); Lymphocytes # (A) 1.1 k/uL (1.0-4.8); Lymphocytes % (A) 27 %; MCH 29.4 pg (25.0-35.0); MCHC 33.5 g/dL (31.0-37.0); MCV 87.9 fL (80.0-100.0); Mean Platelet Volume 10.6; Monocytes # (A) 0.3 k/uL (0-1.0); Monocytes % (A) 9 %; Neutrophils # (A) 2.4 k/uL (1.3-7.7); Neutrophils % (A) 59 %; Platelet Count 102 k/uL (150-450); RBC 4.04 m/uL (3.80-5.40); RDW 15.4 % (11.5-15.5); Reticulocyte % 2.2 % (0.5-2.0)
--- NOTE | 2021-04-09 09:51 | OP ---
OPERATIVE REPORT DATE OF PROCEDURE: 04/09/2021 PREOPERATIVE DIAGNOSIS: Unexplained anemia. POSTOPERATIVE DIAGNOSIS: Unexplained anemia. PROCEDURE: Bone marrow aspirate and biopsy. SITE: Right iliac crest. ANESTHESIA: DESCRIPTION: skin overlying the right iliac crest were prepared with Betadine and alcohol after adequate sterile draping, local anesthesia with 1% lidocaine and systemic sedation, a size 11 4-inch Jamshidi needle was utilized to access the periosteum with ease. A total of 15 mL of aspirate and 2 cm bone core biopsies were obtained. The patient tolerated the procedure very well. There was no immediate procedure-related complication. TOTAL BLOOD LOSS: Less than 1 mL. Results pending. MMODL / IJN: [id number] /
== END 2021-04-09 08:08 | disposition home or self-care (01) ==
LOC: OR 06:10
PROVIDERS: ATTEND Internal Medicine Hematology & Oncology
DX: D64.9 Anemia, unspecified (principal); I10 Essential (primary) hypertension; E78.5 Hyperlipidemia, unspecified; K74.60 Unspecified cirrhosis of liver; E11.9 Type 2 diabetes mellitus without complications; Z95.0 Presence of cardiac pacemaker
CPT/HCPCS: 38222; 85025; 85045

== ENCOUNTER 2021-05-07 06:10 | Day surgery (SDC) | payer MEDICARE ==
[2021-05-05 15:44] VITALS: BMI 30.5
[2021-05-07] MEDS ORDERED: LACTATED RINGERS 1,000 ML IV SCH (06:23)
[2021-05-07] MEDS ORDERED: LIDOCAINE 1% (10MG/ML) FOR IV START INTRADERMA ONE (07:00)
[2021-05-07] MEDS ORDERED: PROPOFOL 10 MG/ML 20 ML VIAL IV ONE (07:18)
[2021-05-07] MEDS ORDERED: LIDOCAINE 1% INJ 10MG/ML (20 ML MDV) ONE (07:18)
[2021-05-07 07:23] LABS: Glucose,Whole Blood 146 mg/dL (75-99)
[2021-05-07 07:27] VITALS: RESP 16; TEMP 97.5
--- NOTE | 2021-05-07 07:27 | P.PCN ---
Date of Procedure: 05/07/21 Procedure(s) Performed: BRIEF HISTORY: Patient is a 70-year-old, pleasant, white female scheduled for an upper endoscopy as a part of screening for esophageal varices. She was diagnosed with liver cirrhosis 5 years ago.. PROCEDURE PERFORMED: Esophagogastroduodenoscopy with biopsy. PREOPERATIVE DIAGNOSIS: Cirrhosis of the liver/screening for esophageal varices. IV sedation per anesthesia. PROCEDURE: After informed consent was obtained, the patient was brought into the endoscopy unit. IV sedation was administered by Anesthesia under continuous monitoring. Initially the Olympus GIF-140 video endoscope was inserted into the mouth. Esophagus intubated without any difficulty. It was gradually advanced into the stomach and duodenum and carefully examined. The bulb and the second part of the duodenum appeared normal. The scope at this time was withdrawn to the stomach, adequately insufflated with air, and upon careful examination, mucosa of the antrum, body, had mild diffuse gastritis and biopsies were done from this area. The cardia and the fundus appeared normal. The scope was then withdrawn into the esophagus. The GE junction was located at 39 cm from the incisors. The esophagus appeared normal. There were no erosions or ulcerations seen and the patient tolerated the procedure well. IMPRESSION: 1. No evidence of gastric or esophageal varices. 2. Mild diffuse gastritis involving the distal antrum as well as body the stomach.. RECOMMENDATIONS: The findings of this examination were discussed with the patient the lesser family. She was advised to follow with the biopsy results. She will be scheduled for repeat upper endoscopy in 2-3 years to screen for esophageal varices.
[2021-05-07 07:41] LABS: Glucose,Whole Blood 163 mg/dL (75-99)
[2021-05-07 07:50] VITALS: BP 125/55; PULSE 61
== END 2021-05-07 08:07 | disposition home or self-care (01) ==
LOC: ORWHC2ENDO 06:10
PROVIDERS: ATTEND Internal Medicine Gastroenterology
DX: K29.50 Unspecified chronic gastritis without bleeding (principal); K74.60 Unspecified cirrhosis of liver; I10 Essential (primary) hypertension; E78.5 Hyperlipidemia, unspecified; Z87.891 Personal history of nicotine dependence; E11.9 Type 2 diabetes mellitus without complications; M19.90 Unspecified osteoarthritis, unspecified site; Z79.84 Long term (current) use of oral hypoglycemic drugs; Z79.899 Other long term (current) drug therapy; Z88.3 Allergy status to other anti-infective agents; Z88.5 Allergy status to narcotic agent; Z88.8 Allergy status to other drugs, medicaments and biological substances; Z97.2 Presence of dental prosthetic device (complete) (partial)
CPT/HCPCS: 88305; 43239; J2001; J2704

== ENCOUNTER → 2021-09-24 | Outpatient (CLI) | payer MEDICARE ==
--- NOTE | 2021-09-27 09:16 | MM ---
Reason for exam: screening (asymptomatic). Last mammogram was performed 2 years and 1 month ago. History: Patient is postmenopausal. Benign cyst aspiration of the left breast. Benign excisional biopsy of the right breast. Physical Findings: A clinical breast exam by your physician is recommended on an annual basis and results should be correlated with mammographic findings. MG Screening Mammo w CAD Bilateral CC, MLO, and XCCL view(s) were taken. Prior study comparison: August 09, 2019, bilateral MG 3d screening mammo w/cad. July 09, 2018, bilateral MG 3d diag mammo w/cad LARISSA. The breast tissue is heterogeneously dense. This may lower the sensitivity of mammography. Finding: There are typically benign vascular, round, linear, grouped and diffuse/scattered calcifications in both breasts. Previous mammotome biopsy in the left breast. There is no discrete abnormality. ASSESSMENT: Benign, BI-RAD 2 RECOMMENDATION: Routine screening mammogram of both breasts in 1 year.
== END | disposition home or self-care (01) ==
LOC: RADMAMWWP 09:40
PROVIDERS: ATTEND Family Medicine
DX: Z12.31 Encounter for screening mammogram for malignant neoplasm of breast (principal)
CPT/HCPCS: 77067

== ENCOUNTER → 2021-09-29 | Outpatient (CLI) | payer MEDICARE ==
[2021-09-29 11:03] LABS: African American GFR (CKD) >90 (>60 ml/min/1.73 sqM); Blood Urea Nitrogen 26 mg/dL (7-17); Non-African American GFR(CKD) 87 (>60 ml/min/1.73 sqM)
--- NOTE | 2021-09-29 19:07 | CT ---
EXAMINATION TYPE: CT chest w con DATE OF EXAM: 09/29/2021 COMPARISON: CT dated 02/23/2021 HISTORY: Previous abnormal lung field. Spot on lung x [address] DLP: 540.40 mGycm Automated exposure control for dose reduction was used. TECHNIQUE: CT scan of the chest is performed with IV Contrast, patient injected with 100 mL of Isovue M300. FINDINGS: LUNGS: Interval stability of the triangular lesion in the left upper lobe superiorly along the obliqu e fissure measuring 12 x 14 mm, unchanged since August 2020 CT scan which is reassuring. The adjace nt more superior tiny nodules are stable without interval progression. Stable chronic atelectasis at the lateral aspect of the right lower lobe as well as the 4 mm nodule at the posterior aspect of the right lung apex. Unchanged remainder of the lungs with no new or progressive lung lesion. No pleural effusion. Patent trachea and main bronchi. MEDIASTINUM: Persistent cardiomegaly, arterial and coronary atherosclerotic calcifications as well as the dilated pulmonary artery measuring up to 3.3 cm, recommend correlation with echocardiographic re sults. No sizable pericardial effusion. No pathologically enlarged lymph nodes in the chest. Right th yroid lobe hypodensity, stable. OTHER: Cirrhotic hepatic changes and splenomegaly suggestive of portal hypertension. Right-sided toño ast calcifications. Unchanged left pleural based calcifications. Degenerative changes of the thoracic spine. No aggressive bone lesion. IMPRESSION: Stable left upper lobe triangular lesion measuring up to 14 mm since [address] scan which is r eassuring. Considering February 2021 PET scan findings, another precautionary follow-up in 12 months is suggested. No new or progressive lung lesion. Incidental findings as described above.
== END | disposition home or self-care (01) ==
LOC: RADCTMAIN 10:24
PROVIDERS: ATTEND Internal Medicine Critical Care Medicine
DX: R91.8 Other nonspecific abnormal finding of lung field (principal)
CPT/HCPCS: 82565; 84520; 71260; 36415; Q9967

== ENCOUNTER → 2023-01-02 | Outpatient (CLI) | payer MEDICARE ==
--- NOTE | 2023-01-02 09:16 | US ---
EXAMINATION TYPE: US abdomen complete DATE OF EXAM: 01/02/2023 COMPARISON: MR liver 10/26/2020 CLINICAL INDICATION: Female, 72 years old with history of K74.60 CIRRHOSIS OF LIVER; Cirrhosis of adrianne er, tenderness and abd pain TECHNIQUE: Multiple sonographic images of the abdomen are obtained. FINDINGS: EXAM MEASUREMENTS: Liver Length: 17.8 cm Gallbladder Wall: Surgically absent cm CBD: 0.6 cm Spleen: 16.2 cm Right Kidney: 10.6x4.4x4.3 cm Left Kidney: 11.5x4.1x4.2 cm [employer] SPECIALIST NOTES: Pancreas: Tail obscured by overlying bowel gas Liver: Increased attenuation Gallbladder: Surgically absent CBD: upper limits Spleen: enlarged Right Kidney: No hydronephrosis or masses seen Left Kidney: No hydronephrosis or masses seen Upper IVC: wnl Abd Aorta: wnl Exam limited due to bowel gas and pt. body habitus The intrahepatic portion of the IVC and proximal abdominal aorta are within normal limits. Post chavo cystectomy changes. Common bile duct is within normal limits. The visualized portions of the pancrea s are homogenous. The tail is obscured by overlying bowel gas. Kidneys are symmetric and free of hydr onephrosis. No renal lesions are seen. Liver is diffusely hyperechoic with coarsened echotexture and surface nodularity. No focal lesion identified. Spleen is enlarged. No visualized ascites. IMPRESSION: Hepatic cirrhosis and splenomegaly without focal lesion identified.
[2023-01-02 16:02] LABS: Albumin 3.9 d/dL; Albumin/Globulin Ratio 0.93 Ratio; Anion Gap 9.3 mmol/L; BUN/Creat Ratio 28.3 Ratio; Blood Urea Nitrogen 28.3 mg/dL; Calcium 9.6 mg/dL; Carbon Dioxide 25.7 mmol/L; Globulin 4.2 d/dL; Potassium 4.6 mmol/L; Total Bilirubin 0.6 mg/dL; Total Protein 8.1 d/dL
[2023-01-03 01:35] LABS: Basophils # (A) 0.02 X 10*3/uL; Basophils % (A) 0.5 %; Eosinophils # (A) 0.07 X 10*3/uL; Eosinophils % (A) 1.7 %; HCT 39.7 %; HGB 12.2 d/dL; Lymphocytes # (A) 0.73 X 10*3/uL; Lymphocytes % (A) 18.1 %; MCH 28.1 pg; MCHC 30.7 d/dL; MCV 91.5 FL; Mean Platelet Volume 12.9 FL; Monocytes % (A) 7.4 %; NRBC Per 100 WBC 0 X 10*3/uL; Neutrophils % (A) 72.1 %; Platelet Count 99 X 10*3/uL; RBC 4.34 X 10*6/uL; RDW 14.1 %; WBC 4.03 X 10*3/uL
== END | disposition home or self-care (01) ==
LOC: RADUSWWP 08:17
PROVIDERS: ATTEND Internal Medicine Gastroenterology
DX: K74.60 Unspecified cirrhosis of liver (principal); R16.1 Splenomegaly, not elsewhere classified
CPT/HCPCS: 76700; 80053; 82105; 85025

== ENCOUNTER → 2023-01-06 | Outpatient (CLI) | payer MEDICARE ==
--- NOTE | 2023-01-06 15:06 | CT ---
EXAMINATION TYPE: CT chest wo con DATE OF EXAM: 01/06/2023 COMPARISON: 09/29/2021 HISTORY: lung nodules CT DLP: 398.1 mGycm. Automated Exposure Control for Dose Reduction was Utilized. TECHNIQUE: CT scan of the thorax is performed without IV contrast. FINDINGS: A triangular-shaped mass abutting the major fissure on the left is stable measuring 14 x 12 mm in siz e. There are surrounding cluster of tiny nodules which are also stable. There is a single small pulmo nary nodule in the posterior right upper lobe which is stable. No new or suspicious lung masses or no dules are seen. There is no airspace consolidation. There is no abnormal interstitial density. There is no pleural effusion or pneumothorax. The great vessels chest are normal is no mediastinal, hilar or axillary adenopathy. There is moderate to marked cardiomegaly which is stable. Limited scanning the upper abdomen reveals no gross abnormality. No focal lytic or blastic osseous abnormalities are seen. IMPRESSION: 1. No acute cardiopulmonary disease. 2. Stable mass and surrounding pulmonary nodules in the left upper lobe abutting the major fissure. 3. Stable moderate cardiomegaly 4. No new or suspicious mass or nodule within the lungs.
== END | disposition home or self-care (01) ==
LOC: RADCTMAIN 14:38
PROVIDERS: ATTEND Internal Medicine Hematology & Oncology
DX: R91.8 Other nonspecific abnormal finding of lung field (principal); D61.818 Other pancytopenia; K75.81 Nonalcoholic steatohepatitis (NASH); E11.9 Type 2 diabetes mellitus without complications; I51.7 Cardiomegaly
CPT/HCPCS: 71250

== ENCOUNTER → 2023-03-28 | Outpatient (CLI) | payer MEDICARE ==
--- NOTE | 2023-03-28 15:43 | XR ---
EXAMINATION TYPE: XR lumbar spine 2 or 3V DATE OF EXAM: 03/28/2023 CLINICAL HISTORY: pain TECHNIQUE: Three views of the lumbar spine are submitted. COMPARISON: None. FINDINGS: There are 5 lumbar type vertebral bodies identified. The lumbar spine shows satisfactory alignment w ithout evidence of acute fracture or dislocation. Vertebral body heights are within normal limits. Mild multilevel degenerative disc disease with disc space narrowing and endplate sclerosis. This is m ost pronounced at L5-S1. Facet arthropathy most pronounced at L5-S1. The overlying soft tissue appea rs unremarkable. Atherosclerotic calcification of the aorta. Surgical clips in the right upper quadra nt. IMPRESSION: 1. No acute fracture or dislocation is seen in the lumbar spine. 2. Mild multilevel degenerative disc disease and facet arthropathy most pronounced at L5-S1.
--- NOTE | 2023-03-28 15:44 | XR ---
EXAMINATION TYPE: XR Hip Complete RT DATE OF EXAM: 03/28/2023 2:32 PM INDICATION: Patient age:Female; 72 years old; Reason for study: M25.551,M54.50; [facility]. COMPARISON: None. TECHNIQUE: The right hip was examined in the frontal and lateral projections . FINDINGS: No evidence of any acute osseous pathology, joint dislocation, or soft tissue swelling. Mil d medial joint space narrowing with acetabular sclerosis. Vascular sclerosis. IMPRESSION: 1. No acute osseous pathology. 2. Mild osteoarthritic changes of the right hip.
== END | disposition home or self-care (01) ==
LOC: RADXRMAIN 13:44
PROVIDERS: ATTEND Family Medicine
DX: M51.36 Other intervertebral disc degeneration, lumbar region (principal); M47.817 Spondylosis without myelopathy or radiculopathy, lumbosacral region; M16.11 Unilateral primary osteoarthritis, right hip
CPT/HCPCS: 72100; 73502

== ENCOUNTER → 2023-06-19 | Outpatient (CLI) | payer MEDICARE ==
--- NOTE | 2023-06-19 13:22 | XR ---
EXAMINATION TYPE: XR chest 2V DATE OF EXAM: 06/19/2023 COMPARISON: 11/10/2020 HISTORY: Shortness of breath TECHNIQUE: Frontal and lateral views of the chest are obtained. FINDINGS: Scattered senescent parenchymal changes noted. Hyperinflation compatible with COPD. No evidence for infiltrate. No evidence for atelectasis. Heart size is stable. Mediastinal structures are stable and grossly unremarkable. No evidence for hilar prominence. Degenerative changes dorsal spine. IMPRESSION: 1. No evidence for acute pulmonary disease.
== END | disposition home or self-care (01) ==
LOC: RADXRMAIN 12:59
PROVIDERS: ATTEND Family Medicine
DX: J06.9 Acute upper respiratory infection, unspecified (principal); R06.02 Shortness of breath
CPT/HCPCS: 71046

== ENCOUNTER → 2023-06-23 | Outpatient (CLI) | payer MEDICARE ==
--- NOTE | 2023-06-23 11:33 | US ---
EXAMINATION TYPE: US liver DATE OF EXAM: 06/23/2023 COMPARISON: 01/02/2023, 03/05/2021. CLINICAL INDICATION: Female, 72 years old with history of K74.60 UNSPECIFIED CIRRHOSIS OF LIVER; Foll ow up liver. GB removed. TECHNIQUE: Multiple sonographic images of the right upper quadrant are obtained. FINDINGS: EXAM MEASUREMENTS: Liver Length: 18.2 cm CBD: 0.5 cm Right Kidney: 11.9 x 4.8 x 4.6 cm Pancreas: Tail obscured by overlying bowel gas, echogenic in appearance Liver: Heterogenous and nodular. Enlarged in size. Echogenic and coarse. Gallbladder: Surgically absent Evidence for sonographic Eckert's sign: Neg CBD: wnl Right Kidney: No hydronephrosis or masses seen IMPRESSION: 1. Hepatic cirrhosis without evidence for suspicious observation period 2. No evidence for acute process.
== END | disposition home or self-care (01) ==
LOC: RADUSWWP 10:57
PROVIDERS: ATTEND Internal Medicine Gastroenterology
DX: K74.60 Unspecified cirrhosis of liver (principal)
CPT/HCPCS: 76705

== ENCOUNTER → 2023-07-14 | Outpatient (CLI) | payer MEDICARE ==
[2023-07-14 18:40] LABS: Basophils # (A) 0.02 X 10*3/uL (0.00-0.10); Basophils % (A) 0.3 %; Eosinophils # (A) 0.15 X 10*3/uL (0.04-0.35); Eosinophils % (A) 2.5 %; HGB 10.9 g/dL (12.0-15.0); Lymphocytes # (A) 1.07 X 10*3/uL (0.90-5.00); Lymphocytes % (A) 17.7 %; MCH 28.4 pg (27.0-32.0); MCHC 32.1 g/dL (32.0-37.0); MCV 88.5 FL (80.0-97.0); Mean Platelet Volume 12.3 FL (9.5-12.2); Monocytes # (A) 0.45 X 10*3/uL (0.20-1.00); Monocytes % (A) 7.4 %; NRBC Per 100 WBC 0 X 10*3/uL (0.00-0.01); Neutrophils # (A) 4.35 X 10*3/uL (1.80-7.70); Neutrophils % (A) 71.8 %; Platelet Count 113 X 10*3/uL (140-440); RBC 3.84 X 10*6/uL (4.10-5.20); RDW 15.5 % (11.5-14.5); WBC 6.06 X 10*3/uL (4.50-10.00)
[2023-07-14 19:29] LABS: Erythrocyte Sedimentation Rate 54 mm/Hr (0-30)
[2023-07-15 02:21] LABS: ALT 21 U/L (8-44); AST 25 U/L (13-35); Albumin 3.8 g/dL (3.8-4.9); Alkaline Phosphatase 129 U/L (41-126); Blood Urea Nitrogen 32.4 mg/dL (9.0-27.0); C Reactive Protein <0.30 mg/dL (0.00-0.80); Calcium 9.4 mg/dL (8.7-10.3); Chloride 101 mmol/L (96-109); Globulin 4.2 g/dL (1.6-3.3); Glucose 215 mg/dL (70-110); Potassium 4.8 mmol/L (3.5-5.5); Sodium 135 mmol/L (135-145); Total Bilirubin 0.5 mg/dL (0.3-1.2)
== END | disposition home or self-care (01) ==
LOC: LABWHC1 15:37
PROVIDERS: ATTEND Internal Medicine Gastroenterology
DX: L40.50 Arthropathic psoriasis, unspecified (principal); K74.60 Unspecified cirrhosis of liver; M85.89 Other specified disorders of bone density and structure, multiple sites; Z79.899 Other long term (current) drug therapy
CPT/HCPCS: 36415; 80053; 82105; 82306; 83970; 85025; 85652; 86140; 86480

== ENCOUNTER → 2024-01-10 | Outpatient (CLI) | payer MEDICARE ==
--- NOTE | 2024-01-10 16:36 | US ---
EXAMINATION TYPE: US liver DATE OF EXAM: 01/10/2024 COMPARISON: 06/23/23 CLINICAL INDICATION: Female, 73 years old with history of K74.60 UNSPECIFIED CIRRHOSIS OF LIVER; JIMÉNEZ TECHNIQUE: Multiple sonographic images of the right upper quadrant are obtained. FINDINGS: EXAM MEASUREMENTS: Liver Length: 15.1 cm Gallbladder Wall: Surgically absent CBD: 0.43 cm Right Kidney: 12.6 x 5.4 x 4.5 cm [employer]ER NOTES: Pancreas: Parts seen appear wnl Liver: Heterogeneous and lobulated contour Gallbladder: Surgically absent CBD: Only small part visualized, appears wnl Right Kidney: wnl Visualized portion of the common bile duct is within normal limits. Right kidney is unremarkable with out evidence of solid mass, hydronephrosis, or nephrolithiasis. Gallbladder is surgically absent. The visualized portions of the pancreas are within normal limits. The liver demonstrates a lobulated con tour with diffusely heterogenous appearance. This appears limits evaluation for intrahepatic masses. No gross evidence of mass. IMPRESSION: Hepatic cirrhosis without focal suspicious abnormality identified.
== END | disposition home or self-care (01) ==
LOC: RADUSWWP 08:15
PROVIDERS: ATTEND Internal Medicine Gastroenterology
DX: K74.60 Unspecified cirrhosis of liver (principal)
CPT/HCPCS: 76705

== ENCOUNTER → 2024-01-15 | Outpatient (CLI) | payer MEDICARE ==
[2024-01-15 10:18] LABS: HCT 36.6 % (37.2-46.3); MCH 28.7 pg (27.0-32.0); MCHC 32.8 g/dL (32.0-37.0); MCV 87.6 FL (80.0-97.0); Mean Platelet Volume 12.6 FL (9.5-12.2); NRBC Per 100 WBC 0 X 10*3/uL (0.00-0.01); Platelet Count 122 X 10*3/uL (140-440); RBC 4.18 X 10*6/uL (4.10-5.20); RDW 14.1 % (11.5-14.5); WBC 4.74 X 10*3/uL (4.50-10.00)
[2024-01-15 10:30] LABS: Chol/HDL Ratio 2.83 Ratio; LDL Cholesterol,Calculated 58.8 mg/dL (0.0-131.0)
[2024-01-15 10:54] LABS: ALT 24 U/L (8-44); AST 42 U/L (13-35); Albumin 4.2 g/dL (3.8-4.9); Albumin/Globulin Ratio 1.05 Ratio (1.60-3.17); Alkaline Phosphatase 92 U/L (41-126); BUN/Creat Ratio 29.22 Ratio (12.00-20.00); Blood Urea Nitrogen 26.3 mg/dL (9.0-27.0); Calcium 9.7 mg/dL (8.7-10.3); Carbon Dioxide 22.6 mmol/L (21.6-31.8); Chloride 103 mmol/L (96-109); Glucose 163 mg/dL (70-110); Potassium 5.5 mmol/L (3.5-5.5); Sodium 139 mmol/L (135-145); Total Bilirubin 0.5 mg/dL (0.3-1.2); Total Protein 8.2 g/dL (6.2-8.2)
== END | disposition home or self-care (01) ==
LOC: LABWHC1 07:25
PROVIDERS: ATTEND Internal Medicine Gastroenterology
DX: E78.2 Mixed hyperlipidemia (principal); K74.60 Unspecified cirrhosis of liver
CPT/HCPCS: 36415; 80053; 80061; 82105; 85027

== ENCOUNTER → 2024-02-05 | Outpatient (CLI) | payer MEDICARE ==
--- NOTE | 2024-02-05 11:14 | CT ---
EXAMINATION TYPE: CT chest wo con DATE OF EXAM: 02/05/2024 COMPARISON: 01/16/2023, 09/29/2021 HISTORY: 73-year-old female R91.1 lung nodule TECHNIQUE: Contiguous axial scanning of the chest without IV contrast. Coronal/sagittal reconstructio ns performed. CT DLP: 687mGycm. Automatic exposure control utilized for a dose reduction. FINDINGS: Left anterior chest wall pacemaker generator right atrial and ventricular leads. Heart borderline to mildly enlarged. Trace pericardial effusion is unchanged. Dense mitral annular ca lcifications. LAD coronary artery calcifications. Mild to moderate atherosclerotic calcifications throughout the thoracic aorta. Conventional arch vess el branching anatomy. Possible significant narrowing of the origin of the right subclavian artery, ax ial image 14. Borderline caliber main right and left pulmonary arteries up to 2.5 cm may reflect underlying pulmona ry hypertension. No thoracic lymphadenopathy by CT size criteria. Bandlike areas of scarring in the lower lungs. Mild diffuse bronchial wall. Some calcified pleural pl aques especially anteriorly on the left. There is a focal opacity measuring 1.7 x 1.2 cm posterior left upper lobe abutting the major fissure. This remains relatively unchanged compared to 01/06/2023 but possibly slightly larger from 09/29/2021. S ome adjacent 3 mm satellite nodularity is present as well, some of which is located along the major f issure. Other scattered 5 mm smaller bilateral pulmonary nodules remain unchanged back to 09/29/2021 suggesting a benign etiology. Biapical pleural-parenchymal scarring. Visualized upper abdomen shows cirrhotic morphology to the liver with nodular contour. Bones: DISH mid and lower thoracic spine. IMPRESSION: 1. Scattered strandy and interstitial scarring throughout the lungs. Focal opacity posterior left upp er lobe stable from 01/06/2023 measuring up to 1.7 cm but slightly larger from 2021. Ongoing annual justina veillance follow-up is recommended. 2. Possible significant atherosclerotic narrowing at the origin of the right subclavian artery. Clini wicho correlate. 3. Known cirrhosis.
== END | disposition home or self-care (01) ==
LOC: RADCTMAIN 10:23
PROVIDERS: ATTEND Internal Medicine Hematology & Oncology
DX: R91.1 Solitary pulmonary nodule (principal); J98.4 Other disorders of lung; J84.10 Pulmonary fibrosis, unspecified; K74.60 Unspecified cirrhosis of liver
CPT/HCPCS: 71250

== ENCOUNTER 2024-03-01 09:19 | Day surgery (SDC) | payer MEDICARE ==
[2024-02-29 12:40] VITALS: BMI 28.8
[~2024-03-01 09:19] MED LIST changes: +LACTATED RINGERS 1,000 ML IV SCH; -LIDOCAINE 1% INJ 10MG/ML (20 ML MDV) ONE; -PROPOFOL 10 MG/ML 20 ML VIAL IV ONE
[2024-03-01] MEDS: IV FLUID CONTINUATION 1,000 ML IV ONE (09:37)
[2024-03-01 09:44] VITALS: RESP 16; TEMP 97.7
[2024-03-01 09:53] LABS: Glucose,Whole Blood 200 mg/dL (70-110)
[2024-03-01] MEDS ORDERED: LIDOCAINE 1% INJ 10MG/ML (20 ML MDV) ONE (12:11)
[2024-03-01] MEDS ORDERED: PROPOFOL 10 MG/ML 20 ML VIAL IV ONE (12:11)
--- NOTE | 2024-03-01 12:20 | P.PCN ---
Date of Procedure: 03/01/24 Procedure(s) Performed: BRIEF HISTORY: Patient is a 73-year-old, pleasant, white female scheduled for an upper endoscopy as a part of screening for esophageal varices. She was diagnosed with nonalcoholic. Last EGD was 3 years ago and she did not have any esophageal varices.. PROCEDURE PERFORMED: Esophagogastroduodenoscopy. PREOPERATIVE DIAGNOSIS: History of liver cirrhosis/screening for esophageal varices. IV sedation per anesthesia. PROCEDURE: After informed consent was obtained, the patient was brought into the endoscopy unit. IV sedation was administered by Anesthesia under continuous monitoring. Initially the Olympus GIF-140 video endoscope was inserted into the mouth. Esophagus intubated without any difficulty. It was gradually advanced into the stomach and duodenum and carefully examined. The bulb and the second part of the duodenum appeared normal. The scope at this time was withdrawn to the stomach, adequately insufflated with air, and upon careful examination, mucosa of the antrum, body, and congested appearing mucosa consistent with portal hypertensive gastropathy. Mucosa of the cardia and the fundus appeared normal. No gastric varices identified. The scope was then withdrawn into the esophagus. The GE junction was located at 39 cm from the incisors. The esophagus appeared normal. There were no erosions or ulcerations seen. No evidence of esophageal varices and the patient tolerated the procedure well. IMPRESSION: 1. Congested appearing mucosa involving the gastric body and fundus consistent with portal hypertensive gastropathy. 2. No evidence of gastric or esophageal varices. RECOMMENDATIONS: The findings of this examination were discussed with the patient as well as her family. She was advised to have repeat upper endoscopy in 2 to 3 years to screen for esophageal varices..
[2024-03-01 12:28] VITALS: PULSE 69
[2024-03-01 12:42] VITALS: BP 136/61
== END 2024-03-01 12:55 | disposition home or self-care (01) ==
LOC: ORWHC2ENDO 09:19
PROVIDERS: ATTEND Internal Medicine Gastroenterology
DX: K76.6 Portal hypertension (principal); K31.89 Other diseases of stomach and duodenum; K74.60 Unspecified cirrhosis of liver; I10 Essential (primary) hypertension; E78.5 Hyperlipidemia, unspecified; E11.9 Type 2 diabetes mellitus without complications; L40.50 Arthropathic psoriasis, unspecified; K76.0 Fatty (change of) liver, not elsewhere classified; Z88.8 Allergy status to other drugs, medicaments and biological substances; Z95.0 Presence of cardiac pacemaker; Z88.1 Allergy status to other antibiotic agents; Z88.5 Allergy status to narcotic agent; Z91.018 Allergy to other foods; Z79.899 Other long term (current) drug therapy
CPT/HCPCS: 43235; J2001; J2704

== ENCOUNTER → 2024-05-28 | Outpatient (CLI) | payer MEDICARE ==
--- NOTE | 2024-05-29 12:47 | MM ---
Reason for Exam: Screening (asymptomatic). Last mammogram was performed 1 year(s) and 7 month(s) ago. Patient History: Menarche at age 13. First Full-Term at age 17. Left ovary removed at age 33. Right ovary removed at age 33. Hysterectomy at age 33. Postmenopausal. Benign Cyst Aspiration on the left side. Benign Excisional Biopsy on the right side. Risk Values: Tana 5 year model risk: 1.5%. NCI Lifetime model risk: 3.9%. Prior Study Comparison: 08/09/2019 Bilateral Screening Mammogram, [facility]. 09/24/2021 Bilateral Screening Mammogram, [facility]. 10/04/2022 Bilateral MG 3D screening mammo w/cad, [facility]. Tissue Density: The breasts are heterogeneously dense, which may obscure small masses. Findings: Analyzed By CAD. Microclip on the left and prior biopsy. Benign fat necrosis calcifications on the right. Benign bilateral oil cyst and vascular calcifications. Regional punctate calcifications on the right are unchanged. Postexcisional changes redemonstrated superior right breast. There is no suspicious group of microcalcifications or new suspicious mass in either breast. Overall Assessment: Benign, BI-RAD 2 Management: Screening Mammogram of both breasts in 1 year. . Patient should continue monthly self-breast exams. A clinical breast exam by your physician is recommended on an annual basis. This exam should not preclude additional follow-up of suspicious palpable abnormalities. Note on Tana scores and lifetime risk: 1. A Tana score greater than 3% is considered moderate risk. If this is the case, consider specialist referral to assess eligibility for a risk reducing agent. 2. If overall lifetime risk for the development of breast cancer is 20% or higher, the patient may qualify for future screening with alternating mammogram and breast MRI. [facility], , 05/29/2024 12:44 PM. Electronically signed and approved by: Eleonora Barillas M.D. Radiologist
== END | disposition home or self-care (01) ==
LOC: RADMAMWWP 16:34
PROVIDERS: ATTEND Family Medicine
CPT/HCPCS: 77063; 77067

== ENCOUNTER → 2024-07-12 | Outpatient (CLI) | payer MEDICARE ==
--- NOTE | 2024-07-12 10:15 | US ---
EXAMINATION TYPE: US liver DATE OF EXAM: 07/12/2024 COMPARISON: NONE CLINICAL INDICATION: Female, 73 years old with history of K74.60 CIRRHOSIS OF LIVER; cirrhosis TECHNIQUE: Grayscale and color Doppler imaging of the right upper quadrant was performed. FINDINGS: EXAM MEASUREMENTS: Liver Length: 21.6 cm Gallbladder Wall: Surgically absent CBD: .6 cm Right Kidney: 11.9 x 4.0 x 3.8 cm BATCH BLENDER NOTES: Pancreas: Obscured by bowel gas Liver: Increased attenuation hepatomegaly sebaceous masses cysts or dilated ducts. Gallbladder: Surgically absent Evidence for sonographic Eckert's sign: No CBD: wnl Right Kidney: No hydronephrosis or masses seen IMPRESSION: 1. Hepatic cirrhosis without evidence for mass or suspicious mass. 2. No acute process. [facility], , 07/12/2024 10:13 AM
[2024-07-12 15:20] LABS: ALT 63 U/L (8-44); AST 49 U/L (13-35); Albumin 3.9 g/dL (3.8-4.9); Alkaline Phosphatase 105 U/L (41-126); Blood Urea Nitrogen 32.4 mg/dL (9.0-27.0); Calcium 9.6 mg/dL (8.7-10.3); Carbon Dioxide 24.5 mmol/L (21.6-31.8); Chloride 100 mmol/L (96-109); Globulin 3.9 g/dL (1.6-3.3); Glucose 373 mg/dL (70-110); Potassium 4.5 mmol/L (3.5-5.5); Sodium 136 mmol/L (135-145); Total Bilirubin 0.7 mg/dL (0.3-1.2); Total Protein 7.8 g/dL (6.2-8.2)
[2024-07-12 17:08] LABS: HCT 36.3 % (37.2-46.3); HGB 11.3 g/dL (12.0-15.0); MCH 28.8 pg (27.0-32.0); MCHC 31.1 g/dL (32.0-37.0); MCV 92.4 FL (80.0-97.0); Mean Platelet Volume 13.9 FL (9.5-12.2); NRBC Per 100 WBC 0 X 10*3/uL (0.00-0.01); Platelet Count 93 X 10*3/uL (140-440); RBC 3.93 X 10*6/uL (4.10-5.20); RDW 13.9 % (11.5-14.5); WBC 4.62 X 10*3/uL (4.50-10.00)
== END | disposition home or self-care (01) ==
LOC: RADUSWWP 08:16
PROVIDERS: ATTEND Internal Medicine Gastroenterology
DX: K74.60 Unspecified cirrhosis of liver (principal)
CPT/HCPCS: 76705; 80053; 82105; 85027

== ENCOUNTER → 2024-12-07 | Outpatient (CLI) | payer MEDICARE ==
[2024-12-07 15:12] LABS: HCT 29.8 % (37.2-46.3); HGB 9.9 g/dL (12.0-15.0); MCH 29.6 pg (27.0-32.0); MCHC 33.2 g/dL (32.0-37.0); Mean Platelet Volume 13.4 FL (9.5-12.2); NRBC Per 100 WBC 0 X 10*3/uL (0.00-0.01); Platelet Count 104 X 10*3/uL (140-440); RBC 3.35 X 10*6/uL (4.10-5.20); RDW 15.2 % (11.5-14.5); WBC 4.99 X 10*3/uL (4.50-10.00)
[2024-12-07 15:13] LABS: Carbon Dioxide 23.1 mmol/L (21.6-31.8); Chloride 104 mmol/L (96-109); Potassium 4.5 mmol/L (3.5-5.5); Sodium 139 mmol/L (135-145)
== END | disposition home or self-care (01) ==
LOC: LABPAT 09:27
PROVIDERS: ATTEND Internal Medicine Interventional Cardiology
DX: Z01.812 Encounter for preprocedural laboratory examination (principal); I65.23 Occlusion and stenosis of bilateral carotid arteries; I70.213 Atherosclerosis of native arteries of extremities with intermittent claudication, bilateral legs
CPT/HCPCS: 80051; 82565; 84520; 85027

== ENCOUNTER 2024-12-10 09:41 | Day surgery (SDC) | payer MEDICARE ==
[2024-12-09 09:08] VITALS: BMI 26.9
[~2024-12-10 09:41] MED LIST changes: +ALPRAZolam 0.25 MG TAB PO PRN; -LACTATED RINGERS 1,000 ML IV SCH; -LIDOCAINE 1% (10MG/ML) FOR IV START INTRADERMA PRN; +NITROGLYCERIN SL TABS 0.4 MG TAB SUBLINGUAL PRN
[2024-12-10] MEDS: IV FLUID CONTINUATION 1,000 ML IV ONE (09:50)
[2024-12-10] MEDS: ATORVASTATIN 80 MG TAB PO STA (10:07)
[2024-12-10] MEDS: ASPIRIN 325 MG TAB PO STA (10:07)
[2024-12-10] MEDS: SODIUM CHLORIDE 0.9% 1,000 ML in EMPTY BAG 1 BAG IV SCH (10:10)
[2024-12-10 10:29] LABS: Glucose,Whole Blood 354 mg/dL (70-110)
[2024-12-10 10:34] LABS: HCT 28.3 % (37.2-46.3); HGB 10.1 g/dL (12.0-15.0); Lymphocytes # (A) 0.46 10*3/uL (0.90-5.00); Lymphocytes % (A) 7.8 %; MCHC 35.7 g/dL (32.0-37.0); MCV 86.8 fL (80.0-97.0); Mean Platelet Volume 11.9 fL (9.5-12.2); Monocytes % (A) 1.2 %; Neutrophils # (A) 5.32 10*3/uL (1.80-7.70); Neutrophils % (A) 90.7 %; Platelet Count 100 10*3/uL (140-440); RBC 3.26 10*6/uL (4.10-5.20); RDW 14.7 % (11.5-14.5); WBC 5.87 10*3/uL (4.50-10.00)
[2024-12-10 10:35] LABS: Monocytes # (A) 0.07 10*3/uL (0.20-1.00)
[2024-12-10] MEDS: ALPRAZolam 0.5 MG TAB PO PRN (10:35)
[2024-12-10] MEDS: INSULIN LISPRO (HumaLOG) 100 UNIT/ML 10 mL VL SQ ONE (10:35)
[2024-12-10 10:39] VITALS: RESP 16; TEMP 97.9
[2024-12-10] MEDS: HEPARIN SODIUM,PORCINE 10,000 UNIT in SODIUM CHLORIDE 0.9% 1,000 ML IRRIGATION PRN (14:41)
[2024-12-10] MEDS: HEPARIN SODIUM,PORCINE (1 ML) 2,500 UNIT in SODIUM CHLORIDE 0.9% 250 ML IRRIGATION PRN (14:41)
[2024-12-10] MEDS: MIDAZOLAM 2 MG/2 ML VIAL IVP ONE (15:02)
[2024-12-10] MEDS: LIDOCAINE 1% INJ 10MG/ML (20 ML MDV) SQ ONE (15:10)
[2024-12-10] MEDS: VERAPAMIL SYRINGE (5 MG/10 ML) INTRAARTER ONE (15:12)
[2024-12-10] MEDS: HEPARIN SODIUM 1,000 UN/ML (10ML VL) IVP ONE (15:13)
[2024-12-10] MEDS: IOPAMIDOL-370 100ML BTL INJ ONE (15:20)
[2024-12-10] MEDS ORDERED: RX INFO: IV CONTRAST WAS GIVEN 1 EACH MISC MISCELLANE PRN (15:21)
--- NOTE | 2024-12-10 15:24 | P.PCN ---
Date of Procedure: 12/10/24 Operative Findings: CARDIAC CATHETERIZATION PERFORMING PHYSICIAN: Tomasz Melgoza MD, RPVI PROCEDURE PERFORMED: 1. Selective right and left coronary angiogram 2. Left heart catheterization 3. Ultrasound-guided access of the right radial artery INDICATION: Unstable angina COMPLICATION: None APPROACH: Right radial artery LEVEL OF SEDATION: Moderate with a sedation length of 10 minutes PROCEDURE DESCRIPTION: After obtaining an informed consent, the patient was brought to cardiac engineering laboratory technician. Local anesthesia was performed using lidocaine subcutaneously. The right radial artery was cannulated using Seldinger technique, under ultrasound guidance, the guidewire passed easily, following that we advanced a 5-Kinyarwanda sheath dilator assembly, the wire and dilator were removed and sheath was flushed. Following that, 2 mg of verapamil along with 5000 unit heparin were given. Selective right and left coronary angiogram using a 5-Kinyarwanda JR4 and JL 3.5 catheters. Following that we did left heart catheterization using the JR4 catheter The procedure was completed there was no complication. SELECTIVE CORONARY ANGIOGRAM: The right coronary artery: Large caliber vessel nondominant vessel Left main: Short but angiographically The left circumflex: Large caliber vessel and the dominant vessel appears to be angiographically normal with no evidence of high-grade stenosis The left anterior descending artery: Large caliber vessel also appears to be normal with no evidence of high-grade stenosis HEMODYNAMICS: The LVEDP was 8 mmHg with no significant gradient across aortic valve CONCLUSION: 1. Normal coronary angiogram 2. Normal left-sided filling pressure POSTPROCEDURE MANAGEMENT: Medical treatment
[2024-12-10] MEDS: SODIUM CHLORIDE 0.9% 1,000 ML IV SCH (15:30)
[2024-12-10 18:03] VITALS: BP 152/67; PULSE 88
== END 2024-12-10 18:28 | disposition home or self-care (01) ==
LOC: CATHCVL 09:41
PROVIDERS: ATTEND Internal Medicine Interventional Cardiology
DX: I48.0 Paroxysmal atrial fibrillation (principal); I73.9 Peripheral vascular disease, unspecified; I20.0 Unstable angina; I38 Endocarditis, valve unspecified; I10 Essential (primary) hypertension; E78.5 Hyperlipidemia, unspecified; E11.9 Type 2 diabetes mellitus without complications; Z95.0 Presence of cardiac pacemaker; Z79.84 Long term (current) use of oral hypoglycemic drugs; Z79.899 Other long term (current) drug therapy
CPT/HCPCS: 93458; 85025; 99152; C1769; C1894; J2250; J1644 ×3; J2003; Q9967

== ENCOUNTER → 2025-01-27 | Outpatient (CLI) | payer MEDICARE ==
--- NOTE | 2025-01-27 13:55 | CT ---
EXAMINATION TYPE: CT chest wo con CT DLP: 371.60 mGycm, Automated exposure control for dose reduction was used. DATE OF EXAM: 01/27/2025 1:19 PM COMPARISON: CT chest 02/05/2024, 01/06/2023, 10/07/2022, 09/29/2021, PET/CT 03/05/2021, CT chest 02/23/2021 CLINICAL INDICATION:Female, 74 years old with history of R91.1 Lung nodule; PHH, LUNG NODULE TECHNIQUE: Multiple axial images were obtained through the chest without IV contrast. Lack of IV or o ral contrast limits evaluation of solid and hollow organ viscera. . Coronal and sagittal reformats re viewed. FINDINGS: LUNGS/ PLEURA: Biapical pleural-parenchymal scarring. No pleural effusion or pneumothorax. Calcified pleural plaques especially anterior left redemonstrated. Stable focal wedge-shaped opacity within the posterior aspect of the left upper lobe abutting the major fissure measuring 1.7 x 1.6 cm. Adjacent stable satellite 3 mm nodules present as well and located along the major fissure. Other scattered 5 mm smaller bilateral pulmonary abdomen remain unchanged. No definitive new or enlarging pulmonary nod ule. AIRWAY: Patent and unremarkable.. HEART: Cardiomegaly is demonstrated.Dense mitral annulus calcifications.. Unchanged trace anterior pe ricardial effusion. Mild to moderate coronary artery calcifications present. Most pronounced within t he LAD. Left anterior chest wall cardiac pacemaker in degenerate device with 2 leads terminating in t he right atrium and right ventricle. MEDIASTINUM: No gross evidence of adenopathy. VASCULATURE: No aortic aneurysm. Moderate atherosclerotic calcification of the aorta and its branche s. Possible significant narrowing at the origin of the right subclavian artery again. At least mild s tenosis at origin of the celiac axis, SMA, and right renal artery secondary to calcified plaque. MUSCULOSKELETAL: No acute osseous abnormalities. DISH of the mid and lower thoracic spine. Degenerati ve disc disease at T6-T7 with endplate sclerosis. No aggressive osseous lesion. SOFT TISSUES/LYMPH NODES: Dystrophic calcification within the right breast. LOWER NECK: No significant findings. UPPER ABDOMEN: Cirrhotic morphology to the liver again demonstrated with nodular contour and posterio r.Sign. Somewhat lobulated appearance of both kidneys. Gallbladder is surgical absent. No visualized ascites within the upper abdomen. IMPRESSION: 1. Overall stable focal wedge-shaped opacity within the posterior left upper lobe with additional sca ttered pulmonary nodules. No definitive new or enlarging pulmonary nodule. Ongoing annual surveillanc e follow-up is recommended. 2. Known hepatic cirrhosis. [facility], , 01/27/2025 1:53 PM
== END | disposition home or self-care (01) ==
LOC: RADCTMAIN 12:58
PROVIDERS: ATTEND Internal Medicine Hematology & Oncology
DX: I10 Essential (primary) hypertension (principal); D61.818 Other pancytopenia; E11.9 Type 2 diabetes mellitus without complications; K75.81 Nonalcoholic steatohepatitis (NASH); Z71.3 Dietary counseling and surveillance; R91.8 Other nonspecific abnormal finding of lung field; K74.60 Unspecified cirrhosis of liver
CPT/HCPCS: 71250

== ENCOUNTER → 2025-02-05 | Day surgery (SDC) | payer MEDICARE ==
[~2025-02-05] MED LIST changes: -ALPRAZolam 0.25 MG TAB PO PRN; +LACTATED RINGERS 1,000 ML IV SCH; -NITROGLYCERIN SL TABS 0.4 MG TAB SUBLINGUAL PRN; +PROPOFOL 10 MG/ML 20 ML VIAL IV ONE
[2025-02-05 07:22] VITALS: RESP 16; TEMP 97
[2025-02-05] MEDS: IV FLUID CONTINUATION 1,000 ML IV ONE (07:32)
[2025-02-05 07:35] LABS: Glucose,Whole Blood 191 mg/dL (70-110)
--- NOTE | 2025-02-05 07:45 | P.GSHP ---
History of Present Illness H&P Date: 02/05/25 CHIEF COMPLAINT: Colon screen HISTORY OF PRESENT ILLNESS: The patient is a 74-year-old female who presents for colon screen. Lower endoscopy was offered for further evaluation and management. PAST MEDICAL HISTORY: Please see list. PAST SURGICAL HISTORY: Please see list. MEDICATIONS: Please see list. ALLERGIES: Please see list. SOCIAL HISTORY: No illicit drug use FAMILY HISTORY: No reports of Crohn disease or ulcerative colitis. REVIEW OF ORGAN SYSTEMS: CONSTITUTIONAL: No reports of fevers or chills. PHYSICAL EXAM: VITAL SIGNS: Stable GENERAL: Well-developed pleasant in no acute distress. HEENT: No scleral icterus. Extraocular movements grossly intact. Moist buccal mucosa. NECK: Supple without lymphadenopathy. CHEST: Unlabored respirations. Equal bilateral excursions. CARDIOVASCULAR: Regular rate and rhythm. Distal 2+ pulses. ABDOMEN: Soft, nontender, nondistended. MUSCULOSKELETAL: No clubbing, cyanosis, or edema. ASSESSMENT: 1. Colon screen. PLAN: 1. Recommend proceeding with a lower endoscopy Past Medical History Past Medical History: Diabetes Mellitus, Hearing Disorder / Deafness, Hyperlipidemia, Hypertension, Liver Disease, Skin Disorder Additional Past Medical History / Comment(s): Hx Endometriosis, hemorrhoids, fatty liver, psoriatic arthritis, psoriasis on right hip, non-alcoholic cirrhosis, fatty liver, varicose veins, small trouble hearing. History of Any Multi-Drug Resistant Organisms: ESBL Date of last positivie culture/infection: 11/08/20 MDRO Source:: ESBL URINE Past Surgical History: Appendectomy, Back Surgery, Cholecystectomy, Hysterectomy, Joint Replacement, Pacemaker Additional Past Surgical History / Comment(s): Total left knee replacement, surgery for herniated disc. COLONOSCOPY Past Anesthesia/Blood Transfusion Reactions: Previous Problems w/ Anesthesia Additional Past Anesthesia/Blood Transfusion Reaction / Comment(s): States "takes a long time waking up." Type of Cardiac Device: Permanent Pacemaker Device Placement Date:: 11/09/20 [employer] Smoking Status: Former smoker - Past Family History Mother Family Medical History: Congestive Heart Failure (CHF) Sister(s) Family Medical History: CVA/TIA, Deep Vein Thrombosis (DVT) Medications and Allergies Home Medications Medication Instructions Recorded Confirmed Type Pravastatin Sodium [Pravachol] 40 mg PO HS 02/10/20 02/03/25 History Secukinumab [Cosentyx Sensoready 300 mg SQ Q30D 02/10/20 02/03/25 History Pen] Ascorbic Acid [Vitamin C] 1,000 mg PO DAILY 11/06/20 02/03/25 History Calcium Carbonate [Calcium] 500 mg PO BID 11/06/20 02/03/25 History Cholecalciferol [Vitamin D3 (25 50 mcg PO 1200 11/06/20 02/03/25 History Mcg = 1000 Iu)] Cyanocobalamin (Vitamin B-12) 1,000 mcg PO DAILY 11/06/20 02/03/25 History [Vitamin B-12] Fiber Powder 1 tsp PO DAILY 11/06/20 02/03/25 History Glucosamine Sulfate 1,000 mg PO HS 11/06/20 02/03/25 History Ubidecarenone [Co Q-10] 100 mg PO W/LUNCH 11/06/20 02/03/25 History glipiZIDE [Glucotrol] 10 mg PO 1200 11/06/20 02/03/25 History ursodioL [Ursodiol] 500 mg PO BID 04/07/21 02/03/25 History Ferrous Sulfate [Iron] 325 mg PO DAILY 05/05/21 02/03/25 History Losartan [Cozaar] 100 mg PO W/LUNCH 05/05/21 02/03/25 History Metoprolol Tartrate [Lopressor] 50 mg PO BID 05/05/21 02/03/25 History amLODIPine [Norvasc] 10 mg PO QAM 05/05/21 02/03/25 History Dicyclomine [Bentyl] 10 mg PO W/LUNCH 12/09/24 02/03/25 History Insulin Glargine,Hum.rec.anlog 10 units SQ HS 12/09/24 02/03/25 History [Toujeo Solostar] Semaglutide [Ozempic] 1 mg SQ MO 12/09/24 02/03/25 History Allergies Allergy/AdvReac Type Severity Reaction Status Date / Time bacitracin Allergy "makes Verified 02/05/25 07:12 [From Neosporin infection ([id number])] worse" coconut Allergy "causes Verified 02/05/25 07:12 pam and throat to go numb" ferumoxytol [From Feraheme] Allergy Chest Pain Verified 02/05/25 07:12 infliximab [From Remicade] Allergy "welts" Verified 02/05/25 07:12 Iodinated Contrast Media Allergy "get Verified 02/05/25 07:12 feeling I'm drowning" neomycin Allergy "makes Verified 02/05/25 07:12 [From Neosporin infection ([id number])] worse" polymyxin B Allergy "makes Verified 02/05/25 07:12 [From Neosporin infection ([id number])] worse" codeine AdvReac Nausea Verified 02/05/25 07:12 hydrocodone AdvReac Nausea Verified 02/05/25 07:12 magnesium AdvReac "IBS" Verified 02/05/25 07:12 potassium AdvReac "IBS" Verified 02/05/25 07:12 tramadol [From Ultram] AdvReac Nausea Verified 02/05/25 07:12 metal Allergy "I get Uncoded 02/05/25 07:12 hives to any metal above my neck" blood thinners AdvReac "get Uncoded 02/05/25 07:12 nosebleeds" Surgical - Exam Vital Signs Temp Pulse Resp BP Pulse Ox 97.0 F L 85 16 150/60 97 02/05/25 07:19 02/05/25 07:19 02/05/25 07:19 02/05/25 07:19 02/05/25 07:19 Results - Labs Abnormal Lab Results - Last 24 Hours (Table) 02/05/25 Range/Units 07:31 POC Glucose (mg/dL) 191 H (70-110) mg/dL
--- NOTE | 2025-02-05 08:16 | P.PCN ---
Date of Procedure: 02/05/25 Description of Procedure: PREOPERATIVE DIAGNOSIS: History of polyps Rectal bleeding POSTOPERATIVE DIAGNOSIS: Diverticulosis, scattered. OPERATION: Colonoscopy to the hepatic flexure SURGEON: Tomeka Johnson MD. ANESTHESIA: MAC. INDICATIONS: The patient is a 60-year-old female who presents for colonoscopy screening. Benefits and risks were described and informed consent was obtained. DESCRIPTION OF PROCEDURE: The patient had undergone Suprep. The patient had been brought into the operating room and laid in the left lateral decubitus position. After adequate intravenous sedation, the rectum was examined with 2% lidocaine jelly. No external hemorrhoids were encountered. The rectal tone was within normal limits. No lesions were palpated in the rectal vault. An Olympus colonoscope was advanced through highly redundant sigmoid colon to the hepatic flexure. Despite multiple maneuvers, scope could not advance past the hepatic flexure. The prep was fair. Scattered diverticulosis was encountered. No colonic polyps were found. No evidence of focal colitis was found. Retroflexion of the scope demonstrated grade 3 internal hemorrhoids without active bleeding or inflammation. The colon was desufflated. The patient had tolerated the procedure well. Withdrawal time was over 6 minutes. FINDINGS: Aronchick preparation quality scale 3 (1-5) Internal hemorrhoids, grade 3 External prolapsed hemorrhoids, grade 3 No arteriovenous malformations to the hepatic flexure No adenomatous polyps to the hepatic flexure No focal colitis to the hepatic flexure Highly redundant sigmoid colon to the hepatic flexure despite abdominal wall pressure. Completion barium enema requested RECOMMENDATIONS: Completion barium enema to assess beyond hepatic flexure Plan - Discharge Summary Discharge Rx Participant: No New Discharge Prescriptions: Continue Pravastatin Sodium [Pravachol] 40 mg PO HS Secukinumab [Cosentyx Sensoready Pen] 300 mg SQ Q30D Calcium Carbonate [Calcium] 500 mg PO BID Ascorbic Acid [Vitamin C] 1,000 mg PO DAILY Metoprolol Tartrate [Lopressor] 50 mg PO BID Semaglutide [Ozempic] 1 mg SQ MO Ubidecarenone [Co Q-10] 100 mg PO W/LUNCH Cyanocobalamin (Vitamin B-12) [Vitamin B-12] 1,000 mcg PO DAILY Cholecalciferol [Vitamin D3 (25 Mcg = 1000 Iu)] 50 mcg PO 1200 Glucosamine Sulfate 1,000 mg PO HS glipiZIDE [Glucotrol] 10 mg PO 1200 Fiber Powder 1 tsp PO DAILY ursodioL [Ursodiol] 500 mg PO BID amLODIPine [Norvasc] 10 mg PO QAM Losartan [Cozaar] 100 mg PO W/LUNCH Ferrous Sulfate [Iron] 325 mg PO DAILY Insulin Glargine,Hum.rec.anlog [Toujeo Solostar] 10 units SQ HS Dicyclomine [Bentyl] 10 mg PO W/LUNCH Discharge Medication List Pravastatin Sodium [Pravachol] 40 mg PO HS 02/10/20 [History] Secukinumab [Cosentyx Sensoready Pen] 300 mg SQ Q30D 02/10/20 [History] Ascorbic Acid [Vitamin C] 1,000 mg PO DAILY 11/06/20 [History] Calcium Carbonate [Calcium] 500 mg PO BID 11/06/20 [History] Cholecalciferol [Vitamin D3 (25 Mcg = 1000 Iu)] 50 mcg PO 1200 11/06/20 [History] Cyanocobalamin (Vitamin B-12) [Vitamin B-12] 1,000 mcg PO DAILY 11/06/20 [History] Fiber Powder 1 tsp PO DAILY 11/06/20 [History] Glucosamine Sulfate 1,000 mg PO HS 11/06/20 [History] Ubidecarenone [Co Q-10] 100 mg PO W/LUNCH 11/06/20 [History] glipiZIDE [Glucotrol] 10 mg PO 1200 11/06/20 [History] ursodioL [Ursodiol] 500 mg PO BID 04/07/21 [History] Ferrous Sulfate [Iron] 325 mg PO DAILY 05/05/21 [History] Losartan [Cozaar] 100 mg PO W/LUNCH 05/05/21 [History] Metoprolol Tartrate [Lopressor] 50 mg PO BID 05/05/21 [History] amLODIPine [Norvasc] 10 mg PO QAM 05/05/21 [History] Dicyclomine [Bentyl] 10 mg PO W/LUNCH 12/09/24 [History] Insulin Glargine,Hum.rec.anlog [Toujeo Solostar] 10 units SQ HS 12/09/24 [History] Semaglutide [Ozempic] 1 mg SQ MO 12/09/24 [History] Follow up Appointment(s)/Referral(s): Tomeka Johnson MD [STAFF PHYSICIAN] - 03/04/25 10:30 am Patient Instructions/Handouts: Barium Enema (DC), Diverticulosis Diet (GEN), Diverticulosis (DC) Activity/Diet/Wound Care/Special Instructions: Completion barium enema requested Discharge Disposition: HOME SELF-CARE
[2025-02-05 08:26] VITALS: BP 124/61; PULSE 70
--- NOTE | 2025-02-05 16:09 | FL ---
EXAMINATION TYPE: FL barium enema DATE OF EXAM: 02/05/2025 COMPARISON: None. CLINICAL INDICATION: Female, 74 years old with history of Incomplete colonoscopy no bx to hep flex; P HH, TECHNIQUE: Single contrast barium enema study is attempted. A total of 36 seconds of fluoroscopic ti me was utilized during procedure and 7 images obtained. Total dose area product (DAP) in uGy*m?, mGy *cm? (or similar): n/p. FINDINGS: Rules Examiner view of the abdomen shows overall gaseous prominence and colon consistent with recen t attempted colonoscopy. Cholecystectomy clips are seen. There is a round radiodense device overlying the right upper quadrant. There is attempted enema study. Patient is unable to hold the inserted contrast despite balloon infla tion at the enema tip. There were 2 attempts made. Patient had more pain with second attempt and did not wish to proceed for further attempts. Contrast made it to the transverse colon. IMPRESSION: Nondiagnostic attempted barium enema study due to nontolerance of contrast enema. Advise CT colonography if felt clinically warranted. [facility], , 02/05/2025 4:06 PM
== END | disposition home or self-care (01) ==
LOC: ORWHC2ENDO 06:45
PROVIDERS: ATTEND Surgery Plastic and Reconstructive Surgery
DX: Z12.11 Encounter for screening for malignant neoplasm of colon (principal); K57.30 Diverticulosis of large intestine without perforation or abscess without bleeding; K63.89 Other specified diseases of intestine; K64.2 Third degree hemorrhoids; Z86.0100 Personal history of colon polyps, unspecified; E78.5 Hyperlipidemia, unspecified; I10 Essential (primary) hypertension; E11.9 Type 2 diabetes mellitus without complications; H91.90 Unspecified hearing loss, unspecified ear; K76.0 Fatty (change of) liver, not elsewhere classified; L40.50 Arthropathic psoriasis, unspecified; I83.90 Asymptomatic varicose veins of unspecified lower extremity; Z79.899 Other long term (current) drug therapy; Z79.4 Long term (current) use of insulin; Z79.85 Long-term (current) use of injectable non-insulin antidiabetic drugs; Z87.891 Personal history of nicotine dependence; Z90.710 Acquired absence of both cervix and uterus; Z96.652 Presence of left artificial knee joint; Z90.49 Acquired absence of other specified parts of digestive tract; Z98.890 Other specified postprocedural states; Z95.0 Presence of cardiac pacemaker; Z79.84 Long term (current) use of oral hypoglycemic drugs; Z88.5 Allergy status to narcotic agent; Z88.8 Allergy status to other drugs, medicaments and biological substances
CPT/HCPCS: 74270; J2704; G0105; 45378

== ENCOUNTER → 2025-02-17 | Outpatient (CLI) | payer MEDICARE ==
--- NOTE | 2025-02-17 09:58 | US ---
EXAMINATION TYPE: US liver DATE OF EXAM: 02/17/2025 COMPARISON: 07/12/2024 CLINICAL INDICATION: Female, 74 years old with history of K74.60 UNSPECIFIED CIRRHOSIS OF LIVER; TECHNIQUE: Grayscale and color Doppler imaging of the right upper quadrant. FINDINGS: EXAM MEASUREMENTS: Liver Length: 18.0cm Gallbladder Wall: Surgically absent cm CBD: 0.4cm color Doppler imaging was utilized to isolate the common bile duct for measurement. Right Kidney: 11.7x4.6x5.6cm SHIP KEEPER NOTES: slightly limited exam due to overlying gas/bowel Pancreas: Tail obscured by overlying bowel gas Liver: heterogenous, course echotexture, nodular contour, Enlarged Gallbladder: Surgically absent Evidence for sonographic Eckert's sign: No CBD: wnl Right Kidney: No hydronephrosis or masses seen IMPRESSION: 1. Stable changes which can be compatible with cirrhosis of liver. 2. Hepatomegaly [facility], Workstation: [facility], 02/17/2025 9:55 AM
[2025-02-17 15:31] LABS: HCT 31.4 % (37.2-46.3); HGB 10.3 g/dL (12.0-15.0); MCH 29.6 pg (27.0-32.0); MCHC 32.8 g/dL (32.0-37.0); MCV 90.2 FL (80.0-97.0); NRBC Per 100 WBC 0 X 10*3/uL (0.00-0.01); Platelet Count 102 X 10*3/uL (140-440); RBC 3.48 X 10*6/uL (4.10-5.20); RDW 13.2 % (11.5-14.5); WBC 3.79 X 10*3/uL (4.50-10.00)
[2025-02-17 16:09] LABS: ALT 22 U/L (8-44); AST 27 U/L (13-35); Albumin 4.0 g/dL (3.8-4.9); Albumin/Globulin Ratio 1.11 Ratio (1.60-3.17); Alkaline Phosphatase 95 U/L (41-126); Anion Gap 13.30 mmol/L (4.00-12.00); BUN/Creat Ratio 27.09 Ratio (12.00-20.00); Blood Urea Nitrogen 29.8 mg/dL (9.0-27.0); Calcium 10.5 mg/dL (8.7-10.3); Carbon Dioxide 24.7 mmol/L (21.6-31.8); Chloride 102 mmol/L (96-109); Globulin 3.6 g/dL (1.6-3.3); Glucose 148 mg/dL (70-110); Potassium 4.0 mmol/L (3.5-5.5); Sodium 140 mmol/L (135-145); Total Protein 7.6 g/dL (6.2-8.2)
== END | disposition home or self-care (01) ==
LOC: RADUSWWP 09:00
PROVIDERS: ATTEND Internal Medicine Gastroenterology
DX: K74.60 Unspecified cirrhosis of liver (principal); R16.0 Hepatomegaly, not elsewhere classified
CPT/HCPCS: 76705; 80053; 82105; 85027